=== PATIENT | male | born 1965 | race American Indian/Alaskan Native ===

== ENCOUNTER 2017-05-25 20:35 | Emergency (ER) | payer MEDICAID ==
[2017-05-25] MEDS ORDERED: PERCOCET 5/325 PO ONE (22:31)
[2017-05-25] MEDS ORDERED: BOOSTRIX IM ONE (22:31)
--- NOTE | 2017-05-25 22:31 | Emergency Department Report ---
- General Chief complaint: Skin/Abscess/Foreign Body Stated complaint: BOIL ON NECK X 1 WEEK Time Seen by Provider: 05/25/17 21:56 Source: patient, family Mode of arrival: Ambulatory Limitations: No Limitations - History of Present Illness Initial comments: Patient here report that he has an abscess on the left side of his neck with the getting bigger over a week. He said it is very painful at 9 out of 10. He said he has been putting warm compresses on the site and taken [id number] pain medication but is not helping. Worse with palpation and movement better resting. Unsure of tetanus vaccination date. Patient has a history of asthma diabetes and hypertension. Ports pain as throbbing. Denies any known cause of abscess. The report that he saw his primary care doctor regarding in abscess on his neck and she placed him on Keflex and easily taken it for 3 days. He said his been taking Keflex 500 mg 3 times a day and is being taken it for the last 3 days. He said he did not see any results with antibiotic. Patient also reports that he use pain that he place in hot water and try to get the pus out but it did not work. Pressures elevated and patient reports that he is on medication for high blood pressure. Patient is asymptomatic. Similar incident in the past. MD complaint: abscess/boil Onset/Timin -: week(s) Tetanus Up to Date: unsure Location: neck Severity: severe Severity scale (0 -10): 7 Quality: other (throbbing) Consistency: constant Improves with: rest Worsens with: palpation, movement Context: other (unknown) Associated symptoms: denies other symptoms Treatments Prior to Arrival: attempted to drain pus at (with safety pin), antibiotic (keflex has been taking for 3 days. Prescribed by PCP) - Related Data Home Medications Medication Instructions Recorded Confirmed Last Taken Cetirizine HCl [ZyrTEC] 10 mg PO DAILY 05/04/17 05/04/17 Unknown Insulin Glargine,Hum.rec.anlog 48 unit SQ QHS 05/04/17 05/04/17 Unknown [Lantus] Liraglutide [Saxenda] 3 mg SQ QAM 05/04/17 05/04/17 Unknown Previous Rx's Medication Instructions Recorded Last Taken Type ALBUTEROL Inhaler [ProAir HFA 2 puff IH QID PRN #1 inhalation 12/26/16 Unknown Rx Inhaler] Gabapentin [Gralise] 300 mg PO TID #90 tab.er.24h 05/07/17 Unknown Rx Gemfibrozil [Lopid] 600 mg PO BID #30 tablet 05/07/17 Unknown Rx Insulin Detemir [Levemir] 48 units SUB-Q QHS #10 ml 05/07/17 Unknown Rx Losartan [Cozaar] 100 mg PO QDAY #30 tablet 05/07/17 Unknown Rx Metoprolol [Lopressor TAB] 50 mg PO BID #60 tablet 05/07/17 Unknown Rx Pravastatin [Pravachol] 20 mg PO QHS #30 tablet 05/07/17 Unknown Rx amLODIPine [Norvasc] 10 mg PO DAILY #30 tablet 05/07/17 Unknown Rx glipiZIDE [glipiZIDE XL] 10 mg PO QPM #30 tab.er.24 05/07/17 Unknown Rx hydrALAZINE [Apresoline TAB] 100 mg PO Q8HR #90 tablet 05/07/17 Unknown Rx oxyCODONE /ACETAMINOPHEN [Percocet 1 tab PO Q8HR PRN #20 tablet 05/07/17 Unknown Rx 5/325 mg] Acetaminophen/Codeine [Tylenol 1 tab PO Q6H PRN 5 Days #20 tab 05/25/17 Unknown Rx /Codeine # 3 tab] Sulfamethoxazole/Trimethoprim 1 each PO BID 10 Days #20 tablet 05/25/17 Unknown Rx [Bactrim DS TAB] Allergies Allergy/AdvReac Type Severity Reaction Status Date / Time No Known Allergies Allergy Verified 02/13/15 18:50 Abscess Boil HPI - HPI Chief Complaint: Skin/Abscess/Foreign Body Stated Complaint: BOIL ON NECK X 1 WEEK Time Seen by Provider: 05/25/17 21:56 Home Medications: Home Medications Medication Instructions Recorded Confirmed Last Taken Cetirizine HCl [ZyrTEC] 10 mg PO DAILY 05/04/17 05/04/17 Unknown Insulin Glargine,Hum.rec.anlog 48 unit SQ QHS 05/04/17 05/04/17 Unknown [Lantus] Liraglutide [Saxenda] 3 mg SQ QAM 05/04/17 05/04/17 Unknown Previous Rx's Medication Instructions Recorded Last Taken Type ALBUTEROL Inhaler [ProAir HFA 2 puff IH QID PRN #1 inhalation 12/26/16 Unknown Rx Inhaler] Gabapentin [Gralise] 300 mg PO TID #90 tab.er.24h 05/07/17 Unknown Rx Gemfibrozil [Lopid] 600 mg PO BID #30 tablet 05/07/17 Unknown Rx Insulin Detemir [Levemir] 48 units SUB-Q QHS #10 ml 05/07/17 Unknown Rx Losartan [Cozaar] 100 mg PO QDAY #30 tablet 05/07/17 Unknown Rx Metoprolol [Lopressor TAB] 50 mg PO BID #60 tablet 05/07/17 Unknown Rx Pravastatin [Pravachol] 20 mg PO QHS #30 tablet 05/07/17 Unknown Rx amLODIPine [Norvasc] 10 mg PO DAILY #30 tablet 05/07/17 Unknown Rx glipiZIDE [glipiZIDE XL] 10 mg PO QPM #30 tab.er.24 05/07/17 Unknown Rx hydrALAZINE [Apresoline TAB] 100 mg PO Q8HR #90 tablet 05/07/17 Unknown Rx oxyCODONE /ACETAMINOPHEN [Percocet 1 tab PO Q8HR PRN #20 tablet 05/07/17 Unknown Rx 5/325 mg] Acetaminophen/Codeine [Tylenol 1 tab PO Q6H PRN 5 Days #20 tab 05/25/17 Unknown Rx /Codeine # 3 tab] Sulfamethoxazole/Trimethoprim 1 each PO BID 10 Days #20 tablet 05/25/17 Unknown Rx [Bactrim DS TAB] Allergies/Adverse Reactions: Allergies Allergy/AdvReac Type Severity Reaction Status Date / Time No Known Allergies Allergy Verified 02/13/15 18:50 ED Review of Systems ROS: Stated complaint: BOIL ON NECK X 1 WEEK Other details as noted in HPI Comment: All other systems reviewed and negative Constitutional: no symptoms reported Respiratory: no symptoms reported Cardiovascular: denies: chest pain, palpitations, dyspnea on exertion, edema, syncope Gastrointestinal: denies: abdominal pain, nausea, vomiting, diarrhea, constipation Musculoskeletal: denies: back pain, joint swelling, arthralgia Skin: other (abscess left neck) Neurological: denies: headache ED Past Medical Hx - Past Medical History Previous Medical History?: Yes Hx Hypertension: Yes Hx Congestive Heart Failure: No Hx Diabetes: Yes Hx Asthma: No Hx COPD: No Hx HIV: No Additional medical history: possible sciatica bronchitis. Obesity - Surgical History Past Surgical History?: Yes Additional Surgical History: Salivary gland removed - Family History Family history: diabetes, hypertension - Social History Smoking Status: Never Smoker Substance Use Type: None - Medications Home Medications: Home Medications Medication Instructions Recorded Confirmed Last Taken Type ALBUTEROL Inhaler [ProAir HFA 2 puff IH QID PRN #1 inhalation 12/26/16 05/04/17 Unknown Rx Inhaler] Cetirizine HCl [ZyrTEC] 10 mg PO DAILY 05/04/17 05/04/17 Unknown History Insulin Glargine,Hum.rec.anlog 48 unit SQ QHS 05/04/17 05/04/17 Unknown History [Lantus] Liraglutide [Saxenda] 3 mg SQ QAM 05/04/17 05/04/17 Unknown History Gabapentin [Gralise] 300 mg PO TID #90 tab.er.24h 05/07/17 Unknown Rx Gemfibrozil [Lopid] 600 mg PO BID #30 tablet 05/07/17 Unknown Rx Insulin Detemir [Levemir] 48 units SUB-Q QHS #10 ml 05/07/17 Unknown Rx Losartan [Cozaar] 100 mg PO QDAY #30 tablet 05/07/17 Unknown Rx Metoprolol [Lopressor TAB] 50 mg PO BID #60 tablet 05/07/17 Unknown Rx Pravastatin [Pravachol] 20 mg PO QHS #30 tablet 05/07/17 Unknown Rx amLODIPine [Norvasc] 10 mg PO DAILY #30 tablet 05/07/17 Unknown Rx glipiZIDE [glipiZIDE XL] 10 mg PO QPM #30 tab.er.24 05/07/17 Unknown Rx hydrALAZINE [Apresoline TAB] 100 mg PO Q8HR #90 tablet 05/07/17 Unknown Rx oxyCODONE /ACETAMINOPHEN [Percocet 1 tab PO Q8HR PRN #20 tablet 05/07/17 Unknown Rx 5/325 mg] Acetaminophen/Codeine [Tylenol 1 tab PO Q6H PRN 5 Days #20 tab 05/25/17 Unknown Rx /Codeine # 3 tab] Sulfamethoxazole/Trimethoprim 1 each PO BID 10 Days #20 tablet 05/25/17 Unknown Rx [Bactrim DS TAB] ED Physical Exam - General Limitations: No Limitations General appearance: alert, in no apparent distress - Head Head exam: Present: atraumatic, normocephalic, normal inspection - Eye Eye exam: Present: normal appearance, PERRL, EOMI. Absent: periorbital swelling , periorbital tenderness Pupils: Present: normal accommodation - ENT ENT exam: Present: normal exam, normal orophraynx, mucous membranes moist - Neck Neck exam: Present: normal inspection, tenderness (tender to palpate the left lateral neck and abscess site), full ROM, other (no C-spine tenderness). Absent : meningismus, lymphadenopathy - Expanded Neck Exam Expanded Neck exam: Present: tenderness (tentative palpate), other (E C-spine tenderness) . Absent: midline deformity, anterior neck swelling, carotid bruit, tracheal deviation - Respiratory Respiratory exam: Present: normal lung sounds bilaterally. Absent: prolonged expiratory, other, chest wall tenderness, wheezes, rales, rhonchi, stridor, respiratory distress, accessory muscle use - Cardiovascular Cardiovascular Exam: Present: regular rate, normal rhythm, normal heart sounds. Absent: systolic murmur, diastolic murmur - GI/Abdominal GI/Abdominal exam: Present: soft, normal bowel sounds. Absent: distended, tenderness, guarding, rebound, rigid, organomegaly, mass, bruit, pulsatile mass - Extremities Exam Extremities exam: Present: normal inspection, full ROM, normal capillary refill , other (no clubbing, cyanosis or edema. +2+ distal extremities. No neurovascular compromise). Absent: tenderness, pedal edema, joint swelling, calf tenderness - Back Exam Back exam: Present: normal inspection, full ROM. Absent: tenderness, CVA tenderness (R), CVA tenderness (L), muscle spasm, paraspinal tenderness, vertebral tenderness, rash noted - Neurological Exam Neurological exam: Present: alert, oriented X3, normal gait, reflexes normal. Absent: motor sensory deficit - Expanded Neurological Exam Expanded Neurological exam: Absent: innattentive, memory loss-remote event, memory loss- recent event, ataxia, receptive aphasia, expressive aphasia, total aphasia, tremor, protecting the airway Patient oriented to: Present: person, place, time Speech: Present: fluid speech Cranial nerves: EOM's Intact: Normal, Gag Reflex: Normal, Tongue Deviation: Normal, Nystagmus: Normal, Facial Sensation: Normal Cerebellar function: Romberg: Normal Upper motor neuron: Sensory Extinction: Normal Sensory exam: Upper Extremity Light Touch: Normal, Upper Extremity Temperature: Normal, UE 2 Point Discrimination: Normal, Lower Extremity Light Touch: Normal, Lower Extremity Temperature: Normal, LE 2 Point Discrimination: Normal Motor strength exam: RUE: 5, LUE: 5, RLE: 5, LLE: 5 DTR: bicep (R): 2+, bicep (L): 2+, tricep (R): 2+, tricep (L): 2+, knee (R): 2+ , knee (L): 2+, ankle (R): 2+, ankle (L): 2+ Best Eye Response (Anel): (4) open spontaneously Best Motor Response (Anel): (6) obeys commands Best Verbal Response (Ashmore): (5) oriented Ashmore Total: 15 - Psychiatric Psychiatric exam: Present: normal affect, normal mood - Skin Skin exam: Present: warm, dry, intact, erythema, other (abscess) - Expanded Skin Exam Expanded Type of lesion: Present: abscess (left neck) Distribution of rash: neck Description of rash: Present: size (2 cm of induration and 4 cm erythema), tenderness, erythematous, swelling, fluctuant (very minimal fluctuant), indurated (mostly indurated). Absent: vesicular, blisters, bullous, petechial, purpuic, crusting, discharge ED Course Vital Signs 05/25/17 05/25/17 05/25/17 20:37 23:30 23:44 Temperature 98.1 F Pulse Rate 90 81 Respiratory 18 Rate Blood Pressure 195/105 199/104 Blood Pressure 199/104 [Left] O2 Sat by Pulse 97 Oximetry - Reevaluation(s) Reevaluation #1: 05/25/17 22:39 Patient is stable at present. He was given a set 5/325 2 tablets emergency room. Boostrix 0.5 mL. Reevaluation #2: 05/25/17 23:21 Patient received clindamycin 600 mg IM for cellulitis and abscess. Incision and drainage done. Please see procedure note for details Reevaluation #3: 05/25/17 23:31 Patient blood pressure is 199/104 after incision and drainage. Patient does have a primary care doctor and he is asymptomatic at present. I discussed with him that he needs to keep a log of his blood pressure and take to his primary care doctor. I told him to call on Monday to schedule an appointment. He said he took his blood pressure medication prior to coming to the hospital. Reevaluation #4: 05/26/17 00:44 Patient was given clonidine 0.2 mg for elevated blood pressure and his blood pressure pulse clonidine is 179/105. I discussed this case with Dr. Sophie South and he is okay with patient going home to follow-up with his primary care physician patient is asymptomatic and has no neurological deficit. - I & D Left Lateral Neck Type of Procedure: Complex Site: left lateral neck Blade Size: 11 I & D Procedure: betadine prep, sterile drapes applied, sterile dressing applied , gauze wick placed Progress: Procedure note. Patient with abscess to left lateral neck. 2 cm indurated area surrounded by 4 cm of erythema. Very minimal fluctuance and positive indurated. Tender to palpate. Small opening into the center from where patient attempted to drain abscess with safety pin at home. Incision and drainage of left neck abscess that under sterile procedure. Area cleansed with iodine followed by normal saline. #11 blade used to make a small incision to side and attempted to drain abscess with hemostat and tried to express but very minimal amount pus came from site. Packing placed to site, sterile dry dressing applied and patient told to return in 4 days for reevaluation. I also told him that if the area is getting bigger he needs to return to emergency room. Patient instructed not to remove pack in and to apply warm compresses to affected area 3-4 times a day. Patient given Boostrix 0.5 mL emergency room. ED Medical Decision Making - Medical Decision Making ED course: Patient with abscess and cellulitis to left neck area. He said his primary care physician placed him on Keflex and he's been taking this for 3 days. He said he has not seen any results so he attempted to drain abscess at home he is in safety pin which he said he sterilized in hot water. He reported a small amount of pus came from sites. He reports pain 7 out of 10. Patient received Percocet 5/325 2 tablets in the emergency room. He also received clindamycin 600 mg IM and booster 0.5 mL. He had no adverse reaction from medication. Patient blood pressure before discharge is 179/105 after given clonidine. Blood pressure while in the emergency room pre-clonidine was also elevated And it was elevated in triage area also. Patient said he takes blood pressure medication and he took his blood pressure medication before he came to the hospital. He does have a primary care physician and I discussed with him that he needs to keep a log of his blood pressure and called his primary care in Monday to schedule an appointment for follow-up visit for her to evaluate his blood pressure and possible make changes in her medication. He is asymptomatic with elevated blood pressure at present. Abscess incision and drainage procedure done. Please see procedure note for details. I discussed the patient that he needs to continue taking his Keflex and also to start Bactrim DS as prescribed. Patient given prescription for Bactrim DS and Tylenol No. 3. Patient has no neurological deficit, denies chest pain or shortness of breath. Denies any abdominal or back pain. Denies any visual difficulties. I collaborated with Dr. Tracey and he is in agreement that patient can be discharged home and follow up with his primary care physician for management of chronic hypertension. Discharge home with his family in stable condition. Critical care attestation.: If time is entered above; I have spent that time in minutes in the direct care of this critically ill patient, excluding procedure time. ED Disposition Clinical Impression: Abscess or cellulitis, neck, Encounter for incision and drainage procedure, Elevated blood pressure reading with diagnosis of hypertension, Obesity, Class III, BMI 40-49.9 (morbid obesity) Disposition: DC-01 TO HOME OR SELFCARE Is pt being admited?: No Does the pt Need Aspirin: No Condition: Stable Instructions: Cellulitis (ED), Abscess Incision and Drainage (ED), Weight Management (ED), Acute Wound Care (ED), Obesity (ED), Hypertension (ED) Additional Instructions: Please return to emergency room in 4 days to have packing removed from Neck apply warm compresses to rlt neck area 3-4 times a day . This will soften area. take Motrin as prescribed Take Bactrim DS as instructed and continue to take Keflex as prescribed by a primary care doctor He is call your primary care doctor and let her know that you have been seen in emergency room for abscess to left neck and you had procedure for incision and drainage. Please do not drive or operate heavy machinery while taking Tylenol No. 3 as this medication causes If area of cellulitis worsens, increase in pain and increase in swelling please return to the emergency room COL[place] Please keep pack in and place to area that was incision and drained until you are seen in 4 days. Followed discharge instruction on acute wound care Prescriptions: Acetaminophen/Codeine [Tylenol /Codeine # 3 tab] 1 tab PO Q6H PRN 5 Days #20 tab PRN Reason: Pain Sulfamethoxazole/Trimethoprim [Bactrim DS TAB] 1 each PO BID 10 Days #20 tablet Referrals: PRIMARY CARE, [Primary Care Provider] - 05/29/17 please return to, emergency room [Other] - 05/29/17 (For evaluation of wound and removal of packing) [facility] [Outside] - 05/30/17 Forms: Accompanied Note, Work/School Release Form(ED)
[2017-05-25] MEDS ORDERED: MARCAINE 0.5% INFILTRATI ONE ×2 (22:34→22:37)
[2017-05-25] MEDS ORDERED: CLEOCIN IM ONE (23:18)
[2017-05-25] MEDS ORDERED: CATAPRES PO ONE (23:37)
[2017-05-26 00:48] VITALS: BP 179/105
== END 2017-05-26 01:12 | disposition home or self-care (01) ==
LOC: ED 20:35
DX: L02.11 Cutaneous abscess of neck (principal); I10 Essential (primary) hypertension; E11.9 Type 2 diabetes mellitus without complications; E66.9 Obesity, unspecified; Z68.41 Body mass index [BMI] 40.0-44.9, adult; Z79.4 Long term (current) use of insulin
CPT/HCPCS: 90471; 90715; 96372

== ENCOUNTER 2017-05-29 07:19 | Emergency (ER) | payer MEDICAID ==
[2017-05-29 08:19] VITALS: BP 189/105
--- NOTE | 2017-05-29 10:47 | Emergency Department Report ---
HPI - General Chief Complaint: Laceration/Recheck/Suture Time Seen by Provider: 05/29/17 10:20 - HPI HPI: Patient is a 52-year-old male with a history of high blood pressure controlled with medication who presents to ED for wound check. Patient was seen here Monday of last week and had a incision and drainage procedure done here. Patient states he has no fever, chest pain, dizziness, headache or any other problems. Patient just states he is here to have these wound looked at and packing removal ED Past Medical Hx - Past Medical History Hx Hypertension: Yes Hx Congestive Heart Failure: No Hx Diabetes: Yes Hx Asthma: No Hx COPD: No Hx HIV: No Additional medical history: possible sciatica bronchitis. Obesity - Surgical History Additional Surgical History: Salivary gland removed - Social History Smoking Status: Never Smoker Substance Use Type: None - Medications Home Medications: Home Medications Medication Instructions Recorded Confirmed Last Taken Type ALBUTEROL Inhaler [ProAir HFA 2 puff IH QID PRN #1 inhalation 12/26/16 05/04/17 Unknown Rx Inhaler] Cetirizine HCl [ZyrTEC] 10 mg PO DAILY 05/04/17 05/04/17 Unknown History Insulin Glargine,Hum.rec.anlog 48 unit SQ QHS 05/04/17 05/04/17 Unknown History [Lantus] Liraglutide [Saxenda] 3 mg SQ QAM 05/04/17 05/04/17 Unknown History Gabapentin [Gralise] 300 mg PO TID #90 tab.er.24h 05/07/17 Unknown Rx Gemfibrozil [Lopid] 600 mg PO BID #30 tablet 05/07/17 Unknown Rx Insulin Detemir [Levemir] 48 units SUB-Q QHS #10 ml 05/07/17 Unknown Rx Losartan [Cozaar] 100 mg PO QDAY #30 tablet 05/07/17 Unknown Rx Metoprolol [Lopressor TAB] 50 mg PO BID #60 tablet 05/07/17 Unknown Rx Pravastatin [Pravachol] 20 mg PO QHS #30 tablet 05/07/17 Unknown Rx amLODIPine [Norvasc] 10 mg PO DAILY #30 tablet 05/07/17 Unknown Rx glipiZIDE [glipiZIDE XL] 10 mg PO QPM #30 tab.er.24 05/07/17 Unknown Rx hydrALAZINE [Apresoline TAB] 100 mg PO Q8HR #90 tablet 05/07/17 Unknown Rx oxyCODONE /ACETAMINOPHEN [Percocet 1 tab PO Q8HR PRN #20 tablet 05/07/17 Unknown Rx 5/325 mg] Acetaminophen/Codeine [Tylenol 1 tab PO Q6H PRN 5 Days #20 tab 05/25/17 Unknown Rx /Codeine # 3 tab] Sulfamethoxazole/Trimethoprim 1 each PO BID 10 Days #20 tablet 05/25/17 Unknown Rx [Bactrim DS TAB] ED Review of Systems ROS: Stated complaint: PACKING REMOVAL Other details as noted in HPI Constitutional: denies: chills, fever Eyes: denies: eye pain, eye discharge, vision change ENT: denies: ear pain, throat pain Respiratory: denies: cough, shortness of breath, wheezing Cardiovascular: denies: chest pain, palpitations Endocrine: no symptoms reported Gastrointestinal: denies: abdominal pain, nausea, diarrhea Genitourinary: denies: urgency, dysuria Musculoskeletal: denies: back pain, joint swelling, arthralgia Skin: denies: rash, lesions Neurological: denies: headache, weakness, paresthesias Psychiatric: denies: anxiety, depression Hematological/Lymphatic: denies: easy bleeding, easy bruising Physical Exam - Physical Exam Vital Signs: Vital Signs 05/29/17 08:14 Temperature 98.7 F Pulse Rate 64 Respiratory 16 Rate Blood Pressure 189/105 O2 Sat by Pulse 98 Oximetry Physical Exam: GENERAL: Alert and oriented x3, no apparent distress, Normal Gait, atraumatic. HEAD: Head is normocephalic and a-traumatic. EYES: Extra ocular muscles are intact. Pupils are equal, round, and reactive to light and accommodation. NECK: Supple. Non edematous, No lymphadenopathy or thyromegaly. LUNGS: Symetrical with respiration, No wheezing, no rales or crackles, CTAB. HEART: S1, S2 present, regular rate and rhythm without murmur, no rubs, no gallops. Non tender to palpation SKIN: Warm and dry, packing removed, no drainage, non tender to palpation, No lesions, No ulceration or induration present. ED Course Vital Signs 05/29/17 08:14 Temperature 98.7 F Pulse Rate 64 Respiratory 16 Rate Blood Pressure 189/105 O2 Sat by Pulse 98 Oximetry ED Medical Decision Making - Medical Decision Making 52-year-old male presents with wound check and packing removal ED course: Packing removed with no complication Wound clean and dry, no drainage, Pt tolerated well Discussed with pt to f/u in 3-5 days for wound check. Vital signs normal. Critical care attestation.: If time is entered above; I have spent that time in minutes in the direct care of this critically ill patient, excluding procedure time. ED Disposition Clinical Impression: Wound check, abscess Disposition: - TO HOME OR SELFCARE Is pt being admited?: No Does the pt Need Aspirin: No Condition: Stable Instructions: Abscess Incision and Drainage (ED) Additional Instructions: Continue taking antibiotics as prescribed Follow-up to primary care doctor in 2-5 days. Change dressing daily Referrals: PRIMARY CARE, [Primary Care Provider] - 3-5 Days [facility] [Outside] - 3-5 Days [facility] [Outside] - 3-5 Days [facility] [Outside] - 3-5 Days Forms: Accompanied Note, Work/School Release Form(ED) Time of Disposition: 10:45
== END 2017-05-29 11:05 | disposition home or self-care (01) ==
LOC: ED 07:19
DX: Z48.00 Encounter for change or removal of nonsurgical wound dressing (principal); I10 Essential (primary) hypertension; E11.9 Type 2 diabetes mellitus without complications; Z79.4 Long term (current) use of insulin

== ENCOUNTER 2019-06-24 02:12 | Inpatient (IN) | payer MEDICAID ==
[2019-06-24] MEDS ORDERED: ASPIRIN 81 MG TAB CHEW PO ONE (02:47)
[2019-06-24] MEDS ORDERED: BENZONATATE 100 MG CAP PO ONE (02:47)
--- NOTE | 2019-06-24 03:24 | XRay Report ---
CHEST 1 VIEW INDICATION: tachycardia. COMPARISON: 05/04/2017 FINDINGS: SUPPORT DEVICES: None. HEART / MEDIASTINUM: No significant abnormality. LUNGS / PLEURA: Diffuse interstitial prominence is noted. No evidence of consolidation or atelectasis No pneumothorax. ADDITIONAL FINDINGS: IMPRESSION: 1. Persistent prominent interstitial markings without interval change Signer Name: Manuel Chandra MD Signed: 06/24/2019 3:19 AM Workstation Name: [id number]
--- NOTE | 2019-06-24 03:25 | Emergency Department Report ---
ED Chest Pain HPI - General Chief Complaint: Dyspnea/Respdistress Stated Complaint: CHEST PAIN Time Seen by Provider: 06/24/19 02:29 Source: patient Mode of arrival: Stretcher Limitations: No Limitations - History of Present Illness Initial Comments: Reports hx CHF, and CKD, and HTN MD Complaint: chest pain (with coughing) -: week(s) (2) Onset: during rest Pain Location: substernal Pain Radiation: none Severity: mild Quality: aching Consistency: intermittent Improves With: nothing Worsens With: other (coughing) Context: recent illness re: dyspnea. denies: nausea, vomting, diaphoresis, sense of impending doom, other Other Symptoms: cough (Reports blood tinged sputum), leg swelling. denies: fever, syncope, rash, acid taste in mouth, palpitations, burping - Related Data Home Medications Medication Instructions Recorded Confirmed Last Taken AtorvaSTATin 40 mg PO DAILY 06/24/19 06/24/19 Unknown Bumetanide 1 mg PO DAILY 06/24/19 06/24/19 Unknown Coreg 25 mg PO DAILY 06/24/19 06/24/19 Unknown Isosorbide Dinitrate 20 mg PO TID 06/24/19 06/24/19 Unknown Januvia 100 mg PO DAILY 06/24/19 06/24/19 Unknown Lasix TAB 40 mg PO DAILY 06/24/19 06/24/19 Unknown Terazosin (Nf) 5 mg PO HS 06/24/19 06/24/19 Unknown Previous Rx's Medication Instructions Recorded Last Taken Type ALBUTEROL Inhaler (OR & NICU) 2 puff IH QID PRN #1 inhalation 12/26/16 Unknown Rx [ProAir HFA Inhaler] amLODIPine 10 mg PO DAILY #30 tablet 05/07/17 Unknown Rx glipiZIDE [glipiZIDE XL] 10 mg PO QPM #30 tab.er.24 05/07/17 Unknown Rx hydrALAZINE [Apresoline TAB] 100 mg PO Q8HR #90 tablet 05/07/17 Unknown Rx Allergies Allergy/AdvReac Type Severity Reaction Status Date / Time No Known Allergies Allergy Verified 02/13/15 18:50 Heart Score - HEART Score History: Slightly suspicious EKG: Non-specific Age: 45-65 Risk factors: 1-2 risk factors Troponin: 1-3x normal limit HEART Score: 4 ED Review of Systems ROS: Stated complaint: CHEST PAIN Other details as noted in HPI Other: GENERAL: No weight change, fatigue, fever, chills, or night sweats SKIN: No changes in skin or hair, no itching, no rashes, no jaundice HEAD: No trauma EYES: No blurriness, tearing, itching, acute visual loss, conjunctival discoloration, or scleral icterus EARS: No hearing loss, tinnitus, vertigo, or earache NOSE: No rhinorrhea, stuffiness, sneezing, itching, or epistaxis MOUTH: No bleeding gums, hoarseness, sore throat, or swelling CARDIAC: Chest pain with coughing for 2 weeks. Dyspnea on exertion, edema. No new murmur, palpitations, orthopnea, PND RESPIRATORY: Cough with blood tinged sputum production. No wheeze, hemoptysis GI: No abdominal pain, nausea, vomiting, dysphagia, diarrhea, constipation, hematemesis, melena, hematochezia URINARY: No frequency, urgency, polyuria, dysuria, hematuria, or incontinence MUSCULOSKELETAL: No muscle weakness, joint stiffness, decrease in range of motion, redness, swelling NEUROLOGIC: No headache, syncope, loss of sensation, numbness, tingling, tremors, weakness, paralysis, seizures HEMATOLOGIC: No anemia, easy bruising, bleeding, petechiae, or purpura ENDOCRINE: No hot or cold intolerance, sweating, polyuria, polydipsia or, polyphagia no thyroid problems PSYCHIATRIC: No change in mood, no anxiety, no depression ED Past Medical Hx - Past Medical History Previous Medical History?: Yes Hx Hypertension: Yes Hx Congestive Heart Failure: No Hx Diabetes: Yes Hx Asthma: No Hx COPD: No Hx HIV: No Additional medical history: possible sciatica bronchitis. Obesity - Surgical History Past Surgical History?: Yes Additional Surgical History: Salivary gland removed - Social History Smoking Status: Never Smoker Substance Use Type: None - Medications Home Medications: Home Medications Medication Instructions Recorded Confirmed Last Taken Type ALBUTEROL Inhaler (OR & NICU) 2 puff IH QID PRN #1 inhalation 12/26/16 06/24/19 Unknown Rx [ProAir HFA Inhaler] amLODIPine 10 mg PO DAILY #30 tablet 05/07/17 06/24/19 Unknown Rx glipiZIDE [glipiZIDE XL] 10 mg PO QPM #30 tab.er.24 11/05/17 12/23/19 Unknown Rx hydrALAZINE [Apresoline TAB] 100 mg PO Q8HR #90 tablet 05/07/17 06/24/19 Unknown Rx AtorvaSTATin 40 mg PO DAILY 06/24/19 06/24/19 Unknown History Bumetanide 1 mg PO DAILY 06/24/19 06/24/19 Unknown History Coreg 25 mg PO DAILY 06/24/19 06/24/19 Unknown History Isosorbide Dinitrate 20 mg PO TID 06/24/19 06/24/19 Unknown History Januvia 100 mg PO DAILY 06/24/19 06/24/19 Unknown History Lasix TAB 40 mg PO DAILY 06/24/19 06/24/19 Unknown History Terazosin (Nf) 5 mg PO HS 06/24/19 06/24/19 Unknown History ED Physical Exam - General Limitations: No Limitations - Other Other exam information: GENERAL: Patient in no acute distress HEAD: Normocephalic, atraumatic EYES: PERRLA, EOM intact, no scleral icterus, no conjunctival hemorrhage, visual quiroz and acuity wnl NOSE: No tenderness, discharge, sinus tenderness MOUTH: No erythema, bleeding, exudate HEART: Regular rate and rhythm, no murmur, S1-S2 are auscultated, no edema, pulses are symmetric LUNGS: Mild bibasilar rales. No respiratory distress. Bilateral breath sounds, mild tachypnea, No retractions, No wheezing, rhonchi ABDOMEN: Normal bowel sounds, abdomen soft, no tenderness, no rebound, no guarding, no distention, no masses, no CVA tenderness MUSCULOSKELETAL: Normal joint range of motion, no redness, no swelling, no tenderness NEUROLOGIC: GCS 15, Alert and Oriented x3, Cranial nerves intact, normal sensation, normal strength, no cerebellar deficit, NIHSS 0 SKIN: Skin is warm and dry, no wounds, no rashes ED Course Vital Signs 06/24/19 06/24/19 02:37 03:49 Temperature 98 F Pulse Rate 84 78 Respiratory 16 16 Rate Blood Pressure 152/78 Blood Pressure 145/82 [Left] O2 Sat by Pulse 95 96 Oximetry BG score - Bg Score Age > 65: (0) No Aspirin use within the Past 7 Days: (0) No 3 or more CAD Risk Factors: (1) Yes 2 or more Angina events in past 24 hrs: (1) Yes Known CAD with more than 50% Stenosis: (0) No Elevated Cardiac Markers: (0) No ST Deviation Greater than 0.5mm: (0) No BG Score: 2 ED Medical Decision Making - Lab Data Result diagrams: 06/24/19 02:25 06/24/19 02:25 Laboratory Results - last 24 hr 06/24/19 06/24/19 06/24/19 02:25 02:25 02:25 WBC 8.7 RBC 3.66 Hgb 9.9 L Hct 29.6 L MCV 81 L MCH 27 L MCHC 33 RDW 17.6 H Plt Count 302 Lymph % (Auto) 9.9 L [place] % (Auto) 8.5 H Eos % (Auto) 2.9 Baso % (Auto) 0.6 Lymph # 0.9 L [place] # 0.7 Eos # 0.3 Baso # 0.0 Seg Neutrophils % 78.1 H Seg Neutrophils # 6.8 PT 13.5 INR 1.02 APTT 34.7 POC ABG pH POC ABG pCO2 POC ABG pO2 POC ABG HCO3 POC ABG Total CO2 POC ABG O2 Sat POC ABG Base Excess FiO2 Sodium Potassium Chloride Carbon Dioxide Anion Gap BUN Creatinine Estimated GFR BUN/Creatinine Ratio Glucose Lactic Acid 0.90 Calcium Magnesium Troponin T NT-Pro-B Natriuret Pep Triglycerides Cholesterol LDL Cholesterol Direct HDL Cholesterol Cholesterol/HDL Ratio 06/24/19 06/24/19 06/24/19 02:25 02:25 04:33 WBC RBC Hgb Hct MCV MCH MCHC RDW Plt Count Lymph % (Auto) [place] % (Auto) Eos % (Auto) Baso % (Auto) Lymph # [place] # Eos # Baso # Seg Neutrophils % Seg Neutrophils # PT INR APTT POC ABG pH 7.456 H POC ABG pCO2 36.5 POC ABG pO2 81 POC ABG HCO3 25.8 POC ABG Total CO2 27 POC ABG O2 Sat 96 POC ABG Base Excess 2 FiO2 36 Sodium 139 Potassium 4.1 Chloride 102.0 Carbon Dioxide 24 Anion Gap 17 BUN 26 H Creatinine 2.5 H Estimated GFR 33 BUN/Creatinine Ratio 10 Glucose 167 H Lactic Acid Calcium 8.5 Magnesium 2.30 Troponin T 0.051 H NT-Pro-B Natriuret Pep 1860 H Triglycerides 194 H Cholesterol 165 LDL Cholesterol Direct 95 HDL Cholesterol 29 L Cholesterol/HDL Ratio 5.68 - EKG Data When compared to previous EKG there are: no significant change - Radiology Data Radiology results: report reviewed - Medical Decision Making Patient comfortable. Updated with results. Plan admit for further evaluation. Hospitalist updated and accepts admission. Critical care attestation.: If time is entered above; I have spent that time in minutes in the direct care of this critically ill patient, excluding procedure time. ED Disposition Clinical Impression: Elevated troponin CHF exacerbation Qualifiers: Heart failure type: unspecified Qualified Code(s): I50.9 - Heart failure, unspecified Disposition: OP ADMIT IP TO THIS HOSP Is pt being admited?: Yes Condition: Stable Referrals: ANNA FLORES MD [Primary Care Provider] - 3-5 Days
[2019-06-24 03:27] LABS: Basophils % (Auto) 0.6 % (0.0-1.8); Eosinophils # (Auto) 0.3 K/mm3 (0.0-0.4); Eosinophils % (Auto) 2.9 % (0.0-4.3); Hematocrit 29.6 % (35.5-45.6); Hemoglobin 9.9 gm/dl (11.8-15.2); Lymphocytes # (Auto) 0.9 K/mm3 (1.2-5.4); Lymphocytes % (Auto) 9.9 % (13.4-35.0); Mean Corpuscular HGB Conc 33 % (32-34); Mean Corpuscular Volume 81 fl (84-94); Monocytes # (Auto) 0.7 K/mm3 (0.0-0.8); Monocytes % (Auto) 8.5 % (0.0-7.3); Platelet Count 302 K/mm3 (140-440); Red Blood Count 3.66 M/mm3 (3.65-5.03); Red Cell Distribution Width 17.6 % (13.2-15.2)
[2019-06-24 03:36] LABS: INR 1.02 (0.87-1.13)
[2019-06-24 03:37] LABS: Partial Thromboplastin Time 34.7 Sec. (24.2-36.6)
[2019-06-24 03:55] LABS: Calcium 8.5 mg/dL (8.4-10.2)
[2019-06-24 04:14] LABS: Chol/HDL Ratio 5.68 %
[2019-06-24] MEDS ORDERED: FUROSEMIDE 40 MG/4 ML INJ IV ONE (04:32)
[2019-06-24] MEDS ORDERED: ONDANSETRON 4 MG/2 ML INJ IV PRN (05:22)
[2019-06-24] MEDS ORDERED: DEXTROSE 50% IN WATER (25GM) 50 ML SYRINGE IV PRN (05:27)
[2019-06-24] MEDS ORDERED: NITROGLYCERIN 0.4 MG TAB SUBL SL PRN (05:27)
[2019-06-24] MEDS ORDERED: ALBUTEROL 2.5 MG/3 ML NEBU IH PRN (05:27)
--- NOTE | 2019-06-24 05:51 | History and Physical Report ---
<FABI MERIDA - Last Filed: 06/24/19 06:04> History of Present Illness Date of examination: 06/24/19 Date of admission: 06/24/2019 Chief complaint: DONIS History of present illness: 53-year-old -[place] male with history of CHF, CKD, hypertension, chronic respiratory failure with home O2 and diabetes who presents to [facility] with complaints of chest discomfort with nonproductive cough and difficulty in breathing. Patient states that he has been experiencing frequent cough, and progressively worsening shortness of breath for the last 3 weeks. He has tried nebulizer treatment and increasing use of home oxygen with no relief. Approximately 3 weeks ago he went to [facility] with complaints of cough. He was given a prescription for cough syrup with codeine. His cough still persists and his shortness of breath continue to worsened. He admits to chest discomfort with cough and intermittent hemoptysis. Patient also states that he noticed worsening bilateral lower extremity edema for the past week. He admits to being compliant with meds. Past History Past Medical History: heart failure, hypertension, renal failure Past Surgical History: Other (Salivary gland removed) Social history: , lives with family Family history: no significant family history Medications and Allergies Allergies Allergy/AdvReac Type Severity Reaction Status Date / Time No Known Allergies Allergy Verified 02/13/15 18:50 Home Medications Medication Instructions Recorded Confirmed Last Taken Type ALBUTEROL Inhaler (OR & NICU) 2 puff IH QID PRN #1 inhalation 12/26/16 06/24/19 Unknown Rx [ProAir HFA Inhaler] amLODIPine 10 mg PO DAILY #30 tablet 05/07/17 06/24/19 Unknown Rx glipiZIDE [glipiZIDE XL] 10 mg PO QPM #30 tab.er.24 05/07/17 06/24/19 Unknown Rx hydrALAZINE [Apresoline TAB] 100 mg PO Q8HR #90 tablet 05/07/17 06/24/19 Unknown Rx AtorvaSTATin 40 mg PO DAILY 06/24/19 06/24/19 Unknown History Bumetanide 1 mg PO DAILY 06/24/19 06/24/19 Unknown History Coreg 25 mg PO DAILY 06/24/19 06/24/19 Unknown History Isosorbide Dinitrate 20 mg PO TID 06/24/19 06/24/19 Unknown History Januvia 100 mg PO DAILY 06/24/19 06/24/19 Unknown History Lasix TAB 40 mg PO DAILY 06/24/19 06/24/19 Unknown History Terazosin (Nf) 5 mg PO HS 06/24/19 06/24/19 Unknown History Active Meds: Active Medications Acetaminophen (Tylenol) 650 mg PO Q4H PRN PRN Reason: Pain MILD(1-3)/Fever >100.5/STERN Albuterol (Proventil) 2.5 mg IH Q3HRT PRN PRN Reason: Shortness Of Breath Amlodipine Besylate (Amlodipine) 10 mg PO DAILY [facility] Atorvastatin Calcium (Lipitor) 40 mg PO DAILY [facility] Benzonatate (Tessalon Perles) 100 mg PO Q8HR [facility] Stop: 06/27/19 05:59 Carvedilol (Coreg) 25 mg PO DAILY [facility] Dextrose (D50w (25gm) Syringe) 50 ml IV Q30MIN PRN; Protocol PRN Reason: Hypoglycemia Docusate Sodium (Colace) 100 mg PO BID [facility] Furosemide (Lasix) 40 mg IV BID@0600,1800 [facility] Glipizide (Glucotrol Xl) 10 mg PO QPMDIAB [facility] Heparin Sodium (Porcine) (Heparin) 5,000 unit SUB-Q Q12HR [facility] Hydralazine HCl (Apresoline) 100 mg PO Q8HR [facility] Insulin Human Lispro (Humalog) 0 unit SUB-Q ACHS [facility]; Protocol Isosorbide Dinitrate (Isordil Titradose) 20 mg PO TID [facility] Nitroglycerin (Nitrostat) 0.4 mg SL .Q5MIN PRN PRN Reason: Chest Pain Ondansetron HCl (Zofran) 4 mg IV Q8H PRN PRN Reason: Nausea And Vomiting Sodium Chloride (Sodium Chloride Flush Syringe 10 Ml) 10 ml IV BID [facility] Sodium Chloride (Sodium Chloride Flush Syringe 10 Ml) 10 ml IV PRN PRN PRN Reason: LINE FLUSH Review of Systems All systems: negative Cardiovascular: edema, shortness of breath, dyspnea on exertion Respiratory: cough, shortness of breath, dyspnea on exertion, other (Hemoptysis, chest discomfort with cough) Exam - Physical Exam Narrative exam: Physical exam General appearance: Present: moderate discomfort, alert and oriented 3, pleasant, well developed, adult male - EENT Eyes: Present: PERRL, EOM intact ENT: hearing intact, normal dentition - Neck Neck: Present: supple, normal ROM - Respiratory Respiratory effort: Non-labored, on supplemental oxygen, unprovoked cough elicited during exam Respiratory: crackles - Cardiovascular Heart rate: 80 (bpm) Rhythm: Sinus rhythm Heart Sounds: Present: S1 & S2. Absent: rub, click - Extremities Extremities: no ischemia, pulses intact, lateral lower extremity pitting edema - Peripheral Assessment Peripheral Pulses: within normal limits - Abdominal General gastrointestinal: soft, non-tender, normal bowel sounds - Integumentary Integumentary: Present: warm, dry - Musculoskeletal Musculoskeletal: Able to move all extremities -Neurological Neurological: CN II-XII intact - Psychiatric Psychiatric: Appropriate for situation ,cooperative - Constitutional Vitals: Temp Pulse Resp BP Pulse Ox 98 F 78 16 145/82 96 06/24/19 02:37 06/24/19 03:49 06/24/19 03:49 06/24/19 03:49 06/24/19 03:49 Results - Labs CBC & Chem 7: 06/24/19 02:25 06/24/19 02:25 Labs: Laboratory Last Values WBC 8.7 K/mm3 (4.5-11.0) 06/24/19 02:25 RBC 3.66 M/mm3 (3.65-5.03) 06/24/19 02:25 Hgb 9.9 gm/dl (11.8-15.2) L 06/24/19 02:25 Hct 29.6 % (35.5-45.6) L 06/24/19 02:25 MCV 81 fl (84-94) L 06/24/19 02:25 MCH 27 pg (28-32) L 06/24/19 02:25 MCHC 33 % (32-34) 06/24/19 02:25 RDW 17.6 % (13.2-15.2) H 06/24/19 02:25 Plt Count 302 K/mm3 (140-440) 06/24/19 02:25 Lymph % (Auto) 9.9 % (13.4-35.0) L 06/24/19 02:25 [place] % (Auto) 8.5 % (0.0-7.3) H 06/24/19 02:25 Eos % (Auto) 2.9 % (0.0-4.3) 06/24/19 02:25 Baso % (Auto) 0.6 % (0.0-1.8) 06/24/19 02:25 Lymph # 0.9 K/mm3 (1.2-5.4) L 06/24/19 02:25 [place] # 0.7 K/mm3 (0.0-0.8) 06/24/19 02:25 Eos # 0.3 K/mm3 (0.0-0.4) 06/24/19 02:25 Baso # 0.0 K/mm3 (0.0-0.1) 06/24/19 02:25 Seg Neutrophils % 78.1 % (40.0-70.0) H 06/24/19 02:25 Seg Neutrophils # 6.8 K/mm3 (1.8-7.7) 06/24/19 02:25 PT 13.5 Sec. (12.2-14.9) 06/24/19 02:25 INR 1.02 (0.87-1.13) 06/24/19 02:25 APTT 34.7 Sec. (24.2-36.6) 06/24/19 02:25 POC ABG pH 7.456 (7.35-7.45) H 06/24/19 04:33 POC ABG pCO2 36.5 (35-45) 06/24/19 04:33 POC ABG pO2 81 (80-105) 06/24/19 04:33 POC ABG HCO3 25.8 (22-26 mml/L) 06/24/19 04:33 POC ABG Total CO2 27 (23-27mmol/L) 06/24/19 04:33 POC ABG O2 Sat 96 06/24/19 04:33 POC ABG Base Excess 2 ((-2) - (+3)mmol/L) 06/24/19 04:33 FiO2 36 % 06/24/19 04:33 Sodium 139 mmol/L (137-145) 06/24/19 02:25 Potassium 4.1 mmol/L (3.6-5.0) 06/24/19 02:25 Chloride 102.0 mmol/L (98-107) 06/24/19 02:25 Carbon Dioxide 24 mmol/L (22-30) 06/24/19 02:25 Anion Gap 17 mmol/L 06/24/19 02:25 BUN 26 mg/dL (9-20) H 06/24/19 02:25 Creatinine 2.5 mg/dL (0.8-1.5) H 06/24/19 02:25 Estimated GFR 33 ml/min 06/24/19 02:25 BUN/Creatinine Ratio 10 % 06/24/19 02:25 Glucose 167 mg/dL (75-100) H 06/24/19 02:25 Lactic Acid 0.90 mmol/L (0.7-2.0) 06/24/19 02:25 Calcium 8.5 mg/dL (8.4-10.2) 06/24/19 02:25 Magnesium 2.30 mg/dL (1.7-2.3) 06/24/19 02:25 Troponin T 0.051 ng/mL (0.00-0.029) H 06/24/19 02:25 NT-Pro-B Natriuret Pep 1860 pg/mL (0-900) H 06/24/19 02:25 Triglycerides 194 mg/dL (2-149) H 06/24/19 02:25 Cholesterol 165 mg/dL (50-199) 06/24/19 02:25 LDL Cholesterol Direct 95 mg/dL (50-130) 06/24/19 02:25 HDL Cholesterol 29 mg/dL (40-59) L 06/24/19 02:25 Cholesterol/HDL Ratio 5.68 % 06/24/19 02:25 - Imaging and Cardiology Imaging and Cardiology: CXR: Impression: 1. Persistent prominent interstitial markings without interval change Assessment and Plan Assessment and plan: 53-year-old -[place] male with history of CHF, CKD, hypertension, chronic respiratory failure with home O2 and diabetes who presents to [facility] with complaints of chest discomfort with nonproductive cough and difficulty in breathing. Patient states that he has been experiencing frequent cough, and progressively worsening shortness of breath for the last 3 weeks. He has tried nebulizer treatment and increasing use of home oxygen with no relief. Approximately 3 weeks ago he went to [facility] with complaints of cough. He was given a prescription for cough syrup with codeine. His cough still persists and his shortness of breath continue to worsened. He admits to chest discomfort with cough and intermittent hemoptysis. Patient also states that he noticed worsening bilateral lower extremity edema for the past week. He admits to being compliant with meds. Acute Exacerbation CHF -BNP elevated at 1860 -Troponin elevated 0.051, audrey continue to trend cardiac enzymes -CXR unrevealing -Start IV Lasix BID -On ASA, Statin, MARIA GUADALUPE, and BB -Cardiology consulted Acute on chronic hypoxic respiratory failure -Baseline home oxygen requirements of 3L prn -Currently on 4LNC -ABG 7.45/36.5/81/25.8 -Monitor saturations -Continue supplemental oxygen wean as tolerated DM -POC BG monitoring -Continue glipizide -SSI coverage prn -HgbA1C pending HTN -Monitor BP -Resume home hypertensive meds Acute Kidney Injury -Superimposed CKD -Cr on admission 2.5 -Avoid nephrotoxic agents -Renal dose all meds Anemia -Hemoglobin on admission 9.9 -No s/s of active bleeding -Continue to monitor hemoglobin -Transfuse as needed Obesity -BMI 42.6kg -Diet and lifestyle modifications -May benefit from OP weight mgmt program DVT PPX -on Heparin and SCD's Advance Directives: No VTE prophylaxis?: Chemical Plan of care discussed with patient/family: Yes <DIMAS GUTHRIE - Last Filed: 06/24/19 06:44> History of Present Illness Date of admission: 06/24/19 04:47 Medications and Allergies Active Meds: Active Medications Acetaminophen (Tylenol) 650 mg PO Q4H PRN PRN Reason: Pain MILD(1-3)/Fever >100.5/STERN Albuterol (Proventil) 2.5 mg IH Q3HRT PRN PRN Reason: Shortness Of Breath Amlodipine Besylate (Amlodipine) 10 mg PO DAILY [facility] Atorvastatin Calcium (Lipitor) 40 mg PO DAILY [facility] Benzonatate (Tessalon Perles) 100 mg PO Q8HR [facility] Stop: 06/27/19 05:59 Last Admin: 06/24/19 06:03 Dose: Not Given Documented by: Carvedilol (Coreg) 25 mg PO DAILY [facility] Dextrose (D50w (25gm) Syringe) 50 ml IV Q30MIN PRN; Protocol PRN Reason: Hypoglycemia Docusate Sodium (Colace) 100 mg PO BID [facility] Furosemide (Lasix) 40 mg IV BID@0600,1800 [facility] Last Admin: 06/24/19 06:03 Dose: Not Given Documented by: Glipizide (Glucotrol Xl) 10 mg PO QPMDIAB [facility] Heparin Sodium (Porcine) (Heparin) 5,000 unit SUB-Q Q12HR [facility] Hydralazine HCl (Apresoline) 100 mg PO Q8HR [facility] Last Admin: 06/24/19 06:07 Dose: 100 mg Documented by: Insulin Human Lispro (Humalog) 0 unit SUB-Q ACHS [facility]; Protocol Isosorbide Dinitrate (Isordil Titradose) 20 mg PO TID [facility] Nitroglycerin (Nitrostat) 0.4 mg SL .Q5MIN PRN PRN Reason: Chest Pain Ondansetron HCl (Zofran) 4 mg IV Q8H PRN PRN Reason: Nausea And Vomiting Sodium Chloride (Sodium Chloride Flush Syringe 10 Ml) 10 ml IV BID [facility] Sodium Chloride (Sodium Chloride Flush Syringe 10 Ml) 10 ml IV PRN PRN PRN Reason: LINE FLUSH Exam - Constitutional Vitals: Temp Pulse Resp BP Pulse Ox 98 F 87 16 151/78 96 06/24/19 02:37 06/24/19 06:08 06/24/19 06:08 06/24/19 06:08 06/24/19 06:08 Results - Labs CBC & Chem 7: 06/24/19 02:25 06/24/19 02:25 Labs: Laboratory Last Values WBC 8.7 K/mm3 (4.5-11.0) 06/24/19 02:25 RBC 3.66 M/mm3 (3.65-5.03) 06/24/19 02:25 Hgb 9.9 gm/dl (11.8-15.2) L 06/24/19 02:25 Hct 29.6 % (35.5-45.6) L 06/24/19 02:25 MCV 81 fl (84-94) L 06/24/19 02:25 MCH 27 pg (28-32) L 06/24/19 02:25 MCHC 33 % (32-34) 06/24/19 02:25 RDW 17.6 % (13.2-15.2) H 06/24/19 02:25 Plt Count 302 K/mm3 (140-440) 06/24/19 02:25 Lymph % (Auto) 9.9 % (13.4-35.0) L 06/24/19 02:25 [place] % (Auto) 8.5 % (0.0-7.3) H 06/24/19 02:25 Eos % (Auto) 2.9 % (0.0-4.3) 06/24/19 02:25 Baso % (Auto) 0.6 % (0.0-1.8) 06/24/19 02:25 Lymph # 0.9 K/mm3 (1.2-5.4) L 06/24/19 02:25 [place] # 0.7 K/mm3 (0.0-0.8) 06/24/19 02:25 Eos # 0.3 K/mm3 (0.0-0.4) 06/24/19 02:25 Baso # 0.0 K/mm3 (0.0-0.1) 06/24/19 02:25 Seg Neutrophils % 78.1 % (40.0-70.0) H 06/24/19 02:25 Seg Neutrophils # 6.8 K/mm3 (1.8-7.7) 06/24/19 02:25 PT 13.5 Sec. (12.2-14.9) 06/24/19 02:25 INR 1.02 (0.87-1.13) 06/24/19 02:25 APTT 34.7 Sec. (24.2-36.6) 06/24/19 02:25 POC ABG pH 7.456 (7.35-7.45) H 06/24/19 04:33 POC ABG pCO2 36.5 (35-45) 06/24/19 04:33 POC ABG pO2 81 (80-105) 06/24/19 04:33 POC ABG HCO3 25.8 (22-26 mml/L) 06/24/19 04:33 POC ABG Total CO2 27 (23-27mmol/L) 06/24/19 04:33 POC ABG O2 Sat 96 06/24/19 04:33 POC ABG Base Excess 2 ((-2) - (+3)mmol/L) 06/24/19 04:33 FiO2 36 % 06/24/19 04:33 Sodium 139 mmol/L (137-145) 06/24/19 02:25 Potassium 4.1 mmol/L (3.6-5.0) 06/24/19 02:25 Chloride 102.0 mmol/L (98-107) 06/24/19 02:25 Carbon Dioxide 24 mmol/L (22-30) 06/24/19 02:25 Anion Gap 17 mmol/L 06/24/19 02:25 BUN 26 mg/dL (9-20) H 06/24/19 02:25 Creatinine 2.5 mg/dL (0.8-1.5) H 06/24/19 02:25 Estimated GFR 33 ml/min 06/24/19 02:25 BUN/Creatinine Ratio 10 % 06/24/19 02:25 Glucose 167 mg/dL (75-100) H 06/24/19 02:25 Hemoglobin A1c 8.6 % (4-6) H 06/24/19 02:25 Lactic Acid 0.90 mmol/L (0.7-2.0) 06/24/19 02:25 Calcium 8.5 mg/dL (8.4-10.2) 06/24/19 02:25 Magnesium 2.30 mg/dL (1.7-2.3) 06/24/19 02:25 Troponin T 0.051 ng/mL (0.00-0.029) H 06/24/19 02:25 NT-Pro-B Natriuret Pep 1860 pg/mL (0-900) H 06/24/19 02:25 Triglycerides 194 mg/dL (2-149) H 06/24/19 02:25 Cholesterol 165 mg/dL (50-199) 06/24/19 02:25 LDL Cholesterol Direct 95 mg/dL (50-130) 06/24/19 02:25 HDL Cholesterol 29 mg/dL (40-59) L 06/24/19 02:25 Cholesterol/HDL Ratio 5.68 % 06/24/19 02:25 Assessment and Plan Assessment and plan: 74-year-old man with a history of hypertension, diabetes, CHF comes emergency room complaining of shortness of breath, cough x3 weeks. He has family members that is been sick with the flu. He was seen at [facility] and was given cough medicine and pain medications. His symptoms did not improve also complaining of orthopnea. Agree with plan as stated above, in addition obtain CT chest, rule out underlying pneumonia, start empiric antibiotic
[2019-06-24] MEDS: FUROSEMIDE 40 MG/4 ML INJ IV SCH ×2 (06:03→18:03)
[2019-06-24] MEDS: BENZONATATE 100 MG CAP PO SCH ×3 (06:03→21:53)
[2019-06-24] MEDS ORDERED: hydrALAZINE 100 MG TAB ONE (06:07)
[2019-06-24] MEDS: hydrALAZINE 100 MG TAB PO SCH ×3 (06:07→21:53)
[2019-06-24] MEDS ORDERED: NON-FORMULARY EACH (Isosorbide Dinitrate 20 MG) PO SCH (08:00)
[2019-06-24] MEDS ORDERED: NON-FORMULARY EACH (Atorvastatin 40 MG) PO SCH (10:00)
[2019-06-24] MEDS ORDERED: NON-FORMULARY EACH (Coreg 25 MG) PO SCH (10:00)
[2019-06-24] MEDS: amLODIPine 10 MG TAB PO SCH (10:09)
[2019-06-24] MEDS: HEPARIN 5,000 UNIT/1 ML VIAL SUB-Q SCH ×2 (10:09→21:52)
[2019-06-24] MEDS: ISOSORBIDE DINITRATE 20 MG TAB PO SCH ×3 (10:09→21:53)
[2019-06-24] MEDS: carvediloL 25 MG TAB PO SCH (10:09)
[2019-06-24] MEDS: DOCUSATE SODIUM 100 MG CAP PO SCH ×2 (10:09→21:52)
[2019-06-24] MEDS: INSULIN LISPRO 100 UNIT/ML SUB-Q SCH ×4 (10:14→23:08)
[2019-06-24] MEDS ORDERED: FLU VACC QUAD 2019-20 (3 YR UP)/PF 60 MCG/0.5 ML SYRINGE IM ONE (12:00)
--- NOTE | 2019-06-24 12:08 | Consultation ---
History of Present Illness Consult date: 06/24/19 Requesting physician: FABI MERIDA Consult reason: chest pain, elevated troponin History of present illness: Mr. Carter is a 54 y/o male with a medical history significant for chronic HFpEF, CKD, diabetes hypertension and chronic respiratory failure on home oxygen who presented to [facility] with worsening chest pain and shortness of breath. He endorses a strong, nonproductive cough for the past three weeks that woke him from sleep and prevented him from lying flat. He was recently treated at [facility] for the flu; however, medical therapy has thus far been ineffective. The chest pain occurs mostly with coughing and is reproducible on palpation. He also reports some BLE edema. Troponins mildly elevated. He is unknown to our practice and sees a packing machine operator with [facility]. An echocardiogram at [facility] on 05/23/2019 found an EF of 58 percent with severely dialted LA and RV and severe LVH. A stress test in 2016 was negative. Cardiac catheterization in 2014 showed normal coronaries. Past History Past Medical History: heart failure, hypertension, renal failure Past Surgical History: Other (Salivary gland removed) Social history: , lives with family Family history: no significant family history Medications and Allergies Allergies Allergy/AdvReac Type Severity Reaction Status Date / Time No Known Allergies Allergy Verified 02/13/15 18:50 Home Medications Medication Instructions Recorded Confirmed Last Taken Type ALBUTEROL Inhaler (OR & NICU) 2 puff IH QID PRN #1 inhalation 12/26/16 06/24/19 Unknown Rx [ProAir HFA Inhaler] amLODIPine 10 mg PO DAILY #30 tablet 05/07/17 06/24/19 Unknown Rx glipiZIDE [glipiZIDE XL] 10 mg PO QPM #30 tab.er.24 05/07/17 06/24/19 Unknown Rx hydrALAZINE [Apresoline TAB] 100 mg PO Q8HR #90 tablet 05/07/17 06/24/19 Unknown Rx AtorvaSTATin 40 mg PO DAILY 06/24/19 06/24/19 Unknown History Bumetanide 1 mg PO DAILY 06/24/19 06/24/19 Unknown History Coreg 25 mg PO DAILY 06/24/19 06/24/19 Unknown History Isosorbide Dinitrate 20 mg PO TID 06/24/19 06/24/19 Unknown History Januvia 100 mg PO DAILY 06/24/19 06/24/19 Unknown History Lasix TAB 40 mg PO DAILY 06/24/19 06/24/19 Unknown History Terazosin (Nf) 5 mg PO HS 06/24/19 06/24/19 Unknown History Active Meds: Active Medications Acetaminophen (Tylenol) 650 mg PO Q4H PRN PRN Reason: Pain MILD(1-3)/Fever >100.5/STERN Albuterol (Proventil) 2.5 mg IH Q3HRT PRN PRN Reason: Shortness Of Breath Amlodipine Besylate (Amlodipine) 10 mg PO DAILY COUNT [facility]CLUDES [facility] Last Admin: 06/24/19 10:09 Dose: 10 mg Documented by: Atorvastatin Calcium (Lipitor) 40 mg PO DAILY COUNT INCLUDES [facility] Last Admin: 06/24/19 10:09 Dose: 40 mg Documented by: Benzonatate (Tessalon Perles) 100 mg PO Q8HR COUNT INCLUDES THE [facility] Stop: 06/27/19 05:59 Last Admin: 06/24/19 06:03 Dose: Not Given Documented by: Carvedilol (Coreg) 25 mg PO DAILY COUNT INCLUDES [facility] Last Admin: 06/24/19 10:09 Dose: 25 mg Documented by: Dextrose (D50w (25gm) Syringe) 50 ml IV Q30MIN PRN; Protocol PRN Reason: Hypoglycemia Docusate Sodium (Colace) 100 mg PO BID COUNT INCLUDES [facility] Last Admin: 06/24/19 10:09 Dose: 100 mg Documented by: Furosemide (Lasix) 40 mg IV BID@0600,1800 COUNT INCLUDES [facility] Last Admin: 06/24/19 06:03 Dose: Not Given Documented by: Glipizide (Glucotrol Xl) 10 mg PO QPMDIAB COUNT INCLUDES THE [facility] Heparin Sodium (Porcine) (Heparin) 5,000 unit SUB-Q Q12HR COUNT INCLUDES THE [facility] Last Admin: 06/24/19 10:09 Dose: 5,000 unit Documented by: Hydralazine HCl (Apresoline) 100 mg PO Q8HR COUNT INCLUDES [facility] Last Admin: 06/24/19 06:07 Dose: 100 mg Documented by: Levofloxacin/Dextrose (Levaquin 750mg/150ml) 750 mg in 150 mls @ 100 mls/hr IV Q48HR COUNT INCLUDES THE [facility]; Protocol Last Admin: 06/24/19 10:10 Dose: 100 mls/hr Documented by: Insulin Human Lispro (Humalog) 0 unit SUB-Q ACHS COUNT INCLUDES THE [facility]; Protocol Last Admin: 06/24/19 10:14 Dose: Not Given Documented by: Isosorbide Dinitrate (Isordil Titradose) 20 mg PO TID COUNT INCLUDES THE [facility] Last Admin: 06/24/19 10:09 Dose: 20 mg Documented by: Nitroglycerin (Nitrostat) 0.4 mg SL .Q5MIN PRN PRN Reason: Chest Pain Ondansetron HCl (Zofran) 4 mg IV Q8H PRN PRN Reason: Nausea And Vomiting Sodium Chloride (Sodium Chloride Flush Syringe 10 Ml) 10 ml IV BID COUNT INCLUDES THE [facility] Last Admin: 06/24/19 10:10 Dose: 10 ml Documented by: Sodium Chloride (Sodium Chloride Flush Syringe 10 Ml) 10 ml IV PRN PRN PRN Reason: LINE FLUSH Review of Systems All systems: negative Cardiovascular: chest pain Respiratory: cough Physical Examination Vital Signs Temp Pulse Resp BP Pulse Ox 98 F 84 16 152/78 95 06/24/19 02:37 06/24/19 02:37 06/24/19 02:37 06/24/19 02:37 06/24/19 02:37 General appearance: no acute distress HEENT: Positive: PERRL Neck: Positive: neck supple Cardiac: Positive: Reg Rate and Rhythm Lungs: Positive: Other (cough) Neuro: Positive: Grossly Intact Abdomen: Positive: Unremarkable Male genitourinary: Positive: deferred Skin: Positive: Clear Musculoskeletal: Normal Range of Motion Extremities: Present: normal Results 06/24/19 02:25 06/24/19 02:25 Cardiac Enzymes 06/24/19 Range/Units 05:53 CK-MB (CK-2) 3.0 (0.0-4.0) ng/mL Coagulation 06/24/19 Range/Units 02:25 PT 13.5 (12.2-14.9) Sec. INR 1.02 (0.87-1.13) APTT 34.7 (24.2-36.6) Sec. Lipids 06/24/19 Range/Units 02:25 Triglycerides 194 H (2-149) mg/dL Cholesterol 165 (50-199) mg/dL HDL Cholesterol 29 L (40-59) mg/dL Cholesterol/HDL Ratio 5.68 % CBC 06/24/19 Range/Units 02:25 WBC 8.7 (4.5-11.0) K/mm3 RBC 3.66 (3.65-5.03) M/mm3 Hgb 9.9 L (11.8-15.2) gm/dl Hct 29.6 L (35.5-45.6) % Plt Count 302 (140-440) K/mm3 Lymph # 0.9 L (1.2-5.4) K/mm3 [place] # 0.7 (0.0-0.8) K/mm3 Eos # 0.3 (0.0-0.4) K/mm3 Baso # 0.0 (0.0-0.1) K/mm3 Comprehensive Metabolic Panel 06/24/19 Range/Units 02:25 Sodium 139 (137-145) mmol/L Potassium 4.1 (3.6-5.0) mmol/L Chloride 102.0 (98-107) mmol/L Carbon Dioxide 24 (22-30) mmol/L BUN 26 H (9-20) mg/dL Creatinine 2.5 H (0.8-1.5) mg/dL Glucose 167 H (75-100) mg/dL Calcium 8.5 (8.4-10.2) mg/dL - Imaging and Cardiology Echo: report reviewed (05/2019: EF 58%, LVH, mildly dilated RA & RV) EKG interpretations - Telemetry EKG Rhythm: Sinus Rhythm - EKG Sinus rhythms and dysrhythmias: sinus rhythm Assessment and Plan Mr. Carter is a 54 y/o male admitted with chest pain. Mild troponin elevation likely secondary to CKD. Will obtain Lexiscan stress test. NPO after midnight. Further recommendations pending hospital course. Recommend pulmonology evaluation as well. The patient has been seen in conjunction with Dr. Bowling, who agrees with the assessment and plan. - Patient Problems (1) Acute on chronic diastolic HF (heart failure) Current Visit: Yes Status: Acute (2) Acute and chronic respiratory failure ([id number]) Current Visit: Yes Status: Acute (3) Elevated troponin Current Visit: Yes Status: Acute (4) Atypical chest pain Current Visit: No Status: Acute (5) Diabetes mellitus Current Visit: No Status: Chronic Qualifiers: Diabetes mellitus type: type 2 Diabetes mellitus complication status: without complication Qualified Code(s): E11.9 - Type 2 diabetes mellitus without complications (6) HTN (hypertension) Current Visit: No Status: Chronic Qualifiers: Hypertension type: essential hypertension Qualified Code(s): I10 - Essentia l (primary) hypertension (7) CKD (chronic kidney disease) Current Visit: Yes Status: Chronic
--- NOTE | 2019-06-24 13:11 | Event Note ---
Date: 06/24/19 Patient with shortness of breath, acute on chronic resp failure due to CHF exacerbation. I have seen and examined him.
--- NOTE | 2019-06-24 16:05 | Cat Scan Report ---
CT chest wo con INDICATION: Dyspnea. TECHNIQUE: All CT scans at this location are performed using the following dose modulation technique: Automated exposure control. Helical slices were obtained. No contrast is administered. COMPARISON: Chest radiograph performed earlier today FINDINGS: There is airspace consolidation lower lobes right greater than left. There is minimal patchy airspace opacity in the right upper lobe. No pneumothorax is seen. Fusion is seen. There is very small amount of pericardial fluid. Mildly prominent. The lymph nodes. Index right paratracheal node measures 1.4 cm in short axis. On review of bone windows, no acute osseous abnormalities are seen. IMPRESSION: 1. There is bilateral lower lobe airspace disease. This is suspicious for pneumonia. Mild mediastinal adenopathy may be reactive. Signer Name: Zen Sloan MD Signed: 06/24/2019 4:00 PM Workstation Name: [id number]
[2019-06-24] MEDS: ACETAMINOPHEN 325 MG TAB PO PRN (23:09)
[2019-06-25] MEDS: hydrALAZINE 100 MG TAB PO SCH ×3 (06:13→21:21)
[2019-06-25 06:34] LABS: Basophils % (Auto) 0.6 % (0.0-1.8); Eosinophils # (Auto) 0.3 K/mm3 (0.0-0.4); Eosinophils % (Auto) 4.3 % (0.0-4.3); Hematocrit 33.1 % (35.5-45.6); Hemoglobin 10.9 gm/dl (11.8-15.2); Lymphocytes # (Auto) 0.5 K/mm3 (1.2-5.4); Lymphocytes % (Auto) 6.6 % (13.4-35.0); Mean Corpuscular HGB Conc 33 % (32-34); Mean Corpuscular Volume 81 fl (84-94); Monocytes # (Auto) 0.5 K/mm3 (0.0-0.8); Monocytes % (Auto) 7.6 % (0.0-7.3); Platelet Count 313 K/mm3 (140-440); Red Blood Count 4.08 M/mm3 (3.65-5.03); Red Cell Distribution Width 17.2 % (13.2-15.2)
[2019-06-25 06:56] LABS: Calcium 8.5 mg/dL (8.4-10.2)
[2019-06-25] MEDS ORDERED: REGADENOSON 0.4 MG/5 ML INJ IV ONE ×2 (07:05→07:48)
[2019-06-25] MEDS: BENZONATATE 100 MG CAP PO SCH ×3 (07:38→21:21)
[2019-06-25] MEDS: FUROSEMIDE 40 MG/4 ML INJ IV SCH (07:38)
[2019-06-25] MEDS: INSULIN LISPRO 100 UNIT/ML SUB-Q SCH ×4 (08:22→23:07)
[2019-06-25] MEDS: carvediloL 25 MG TAB PO SCH (11:25)
[2019-06-25] MEDS: DOCUSATE SODIUM 100 MG CAP PO SCH (11:25)
[2019-06-25] MEDS: HEPARIN 5,000 UNIT/1 ML VIAL SUB-Q SCH ×2 (11:25→21:21)
[2019-06-25] MEDS: amLODIPine 10 MG TAB PO SCH (11:25)
[2019-06-25] MEDS: ISOSORBIDE DINITRATE 20 MG TAB PO SCH ×3 (11:36→21:20)
--- NOTE | 2019-06-25 12:50 | Consultation ---
History of Present Illness Consult date: 06/25/19 Reason for consult: dyspnea, cough, chest pain, asthma History of present illness: PULMONARY AND CRITICAL CARE CONSULTATION DR. BOO THANK YOU FOR ASKING ME TO PARTICIPATE IN THE CARE OF THIS PATIENT. 54-year-old -[place] male with history of CHF, CKD, hypertension, chronic respiratory failure with home O2 and diabetes who presents to [facility] ED with complaints of chest discomfort with nonproductive cough and difficulty in breathing. Patient states that he has been experiencing frequent cough, and progressively worsening shortness of breath for the last 3 weeks. He has tried nebulizer treatment and increasing use of home oxygen with no relief. Approximately 3 weeks ago he went to [facility] with complaints of cough. He was given a prescription for cough syrup with codeine. His cough still persists and his shortness of breath continue to worsened. He admits to chest discomfort with cough and intermittent hemoptysis. Patient also states that he noticed worsening bilateral lower extremity edema for the past week. He admits to being compliant with meds. Patient has history of smoking Marijuana for 10 years. stopped smoking Marijuana several years ago. Denies smoking cigaretts, alcohol. Denies drug abuse other than Marijuana. Patient worked in [employer]. Patient has history of chronic bronchitis and CKD, Allergic to GABAPENTIN. Patient and has 4 children. Patient having excessive cough. Patient is on 4 litres O2 and O2 saturation runn ing 94%. Patients Chest xray reported persistent prominent interstitial changes at the bases. CT of chest reported interstitial changes at the bases suspicious for pneumonia. Mild mediastinal adenopathy likely reactive. Patient is morbidly Obese. Patient said he was recommended for sleep study. He did not have any sleep study so far. Patient has symptoms of sleep apnea. Past History Past Medical History: heart failure, hypertension, renal failure Past Surgical History: Other (Salivary gland removed) Social history: , lives with family Family history: no significant family history Medications and Allergies Allergies Allergy/AdvReac Type Severity Reaction Status Date / Time No Known Allergies Allergy Verified 02/13/15 18:50 Home Medications Medication Instructions Recorded Confirmed Last Taken Type ALBUTEROL Inhaler (OR & NICU) 2 puff IH QID PRN #1 inhalation 12/26/16 06/24/19 Unknown Rx [ProAir HFA Inhaler] amLODIPine 10 mg PO DAILY #30 tablet 05/07/17 06/24/19 Unknown Rx glipiZIDE [glipiZIDE XL] 10 mg PO QPM #30 tab.er.24 05/07/17 06/24/19 Unknown Rx hydrALAZINE [Apresoline TAB] 100 mg PO Q8HR #90 tablet 05/07/17 06/24/19 Unknown Rx AtorvaSTATin 40 mg PO DAILY 06/24/19 06/24/19 Unknown History Bumetanide 1 mg PO DAILY 06/24/19 06/24/19 Unknown History Coreg 25 mg PO DAILY 06/24/19 06/24/19 Unknown History Isosorbide Dinitrate 20 mg PO TID 06/24/19 06/24/19 Unknown History Januvia 100 mg PO DAILY 06/24/19 06/24/19 Unknown History Lasix TAB 40 mg PO DAILY 06/24/19 06/24/19 Unknown History Terazosin (Nf) 5 mg PO HS 06/24/19 06/24/19 Unknown History Active Meds: Active Medications Acetaminophen (Tylenol) 650 mg PO Q4H PRN PRN Reason: Pain MILD(1-3)/Fever >100.5/STERN Last Admin: 06/24/19 23:09 Dose: 650 mg Documented by: Albuterol (Proventil) 2.5 mg IH Q3HRT PRN PRN Reason: Shortness Of Breath Amlodipine Besylate (Amlodipine) 10 mg PO DAILY [facility] Last Admin: 06/25/19 11:25 Dose: 10 mg Documented by: Atorvastatin Calcium (Lipitor) 40 mg PO DAILY [facility] Last Admin: 06/25/19 11:25 Dose: 40 mg Documented by: Benzonatate (Tessalon Perles) 100 mg PO Q8HR [facility] Stop: 06/27/19 05:59 Last Admin: 06/25/19 07:38 Dose: Not Given Documented by: Carvedilol (Coreg) 25 mg PO DAILY [facility] Last Admin: 06/25/19 11:25 Dose: 25 mg Documented by: Dextrose (D50w (25gm) Syringe) 50 ml IV Q30MIN PRN; Protocol PRN Reason: Hypoglycemia Docusate Sodium (Colace) 100 mg PO BID [facility] Last Admin: 06/25/19 11:25 Dose: 100 mg Documented by: Furosemide (Lasix) 40 mg IV BID@0600,1800 [facility] Last Admin: 06/25/19 07:38 Dose: Not Given Documented by: Glipizide (Glucotrol Xl) 10 mg PO QPMDIAB [facility] Last Admin: 06/24/19 18:03 Dose: 10 mg Documented by: Heparin Sodium (Porcine) (Heparin) 5,000 unit SUB-Q Q12HR [facility] Last Admin: 06/25/19 11:25 Dose: 5,000 unit Documented by: Hydralazine HCl (Apresoline) 100 mg PO Q8HR [facility] Last Admin: 06/25/19 06:13 Dose: 100 mg Documented by: Levofloxacin/Dextrose (Levaquin 750mg/150ml) 750 mg in 150 mls @ 100 mls/hr IV Q48HR [facility]; Protocol Last Admin: 06/24/19 10:10 Dose: 100 mls/hr Documented by: Insulin Human Lispro (Humalog) 0 unit SUB-Q ACHS [facility]; Protocol Last Admin: 06/25/19 12:11 Dose: Not Given Documented by: Isosorbide Dinitrate (Isordil Titradose) 20 mg PO TID [facility] Last Admin: 06/25/19 11:36 Dose: 20 mg Documented by: Nitroglycerin (Nitrostat) 0.4 mg SL .Q5MIN PRN PRN Reason: Chest Pain Ondansetron HCl (Zofran) 4 mg IV Q8H PRN PRN Reason: Nausea And Vomiting Sodium Chloride (Sodium Chloride Flush Syringe 10 Ml) 10 ml IV BID [facility] Last Admin: 06/25/19 11:26 Dose: 10 ml Documented by: Sodium Chloride (Sodium Chloride Flush Syringe 10 Ml) 10 ml IV PRN PRN PRN Reason: LINE FLUSH Review of Systems All systems: negative Physical Examination Vital signs: Vital Signs Temp Pulse Resp BP Pulse Ox 98 F 84 16 152/78 95 06/24/19 02:37 06/24/19 02:37 06/24/19 02:37 06/24/19 02:37 06/24/19 02:37 Results - Laboratory Findings CBC and BMP: 06/25/19 05:13 06/25/19 05:13 ABG POC ABG pH 7.456 (7.35-7.45) H 06/24/19 04:33 POC ABG pCO2 36.5 (35-45) 06/24/19 04:33 POC ABG pO2 81 (80-105) 06/24/19 04:33 POC ABG HCO3 25.8 (22-26 mml/L) 06/24/19 04:33 POC ABG Total CO2 27 (23-27mmol/L) 06/24/19 04:33 POC ABG O2 Sat 96 06/24/19 04:33 PT/INR, D-dimer PT 13.5 Sec. (12.2-14.9) 06/24/19 02:25 INR 1.02 (0.87-1.13) 06/24/19 02:25 Abnormal lab findings: Abnormal Labs 06/24/19 06/24/19 06/24/19 02:25 02:25 02:25 Hgb 9.9 L Hct 29.6 L MCV 81 L MCH 27 L RDW 17.6 H Lymph % (Auto) 9.9 L [place] % (Auto) 8.5 H Lymph # 0.9 L Seg Neutrophils % 78.1 H POC ABG pH BUN 26 H Creatinine 2.5 H Glucose 167 H POC Glucose Hemoglobin A1c Total Creatine Kinase Troponin T 0.051 H NT-Pro-B Natriuret Pep 1860 H Triglycerides 194 H HDL Cholesterol 29 L 06/24/19 06/24/19 06/24/19 02:25 04:33 05:53 Hgb Hct MCV MCH RDW Lymph % (Auto) [place] % (Auto) Lymph # Seg Neutrophils % POC ABG pH 7.456 H BUN Creatinine Glucose POC Glucose Hemoglobin A1c 8.6 H Total Creatine Kinase 773 H Troponin T 0.041 H NT-Pro-B Natriuret Pep Triglycerides HDL Cholesterol 06/24/19 06/24/19 06/24/19 09:36 13:16 16:24 Hgb Hct MCV MCH RDW Lymph % (Auto) [place] % (Auto) Lymph # Seg Neutrophils % POC ABG pH BUN Creatinine Glucose POC Glucose 151 H 144 H 140 H Hemoglobin A1c Total Creatine Kinase Troponin T NT-Pro-B Natriuret Pep Triglycerides HDL Cholesterol 06/24/19 06/25/19 06/25/19 20:52 05:13 05:13 Hgb 10.9 L Hct 33.1 L MCV 81 L MCH 27 L RDW 17.2 H Lymph % (Auto) 6.6 L [place] % (Auto) 7.6 H Lymph # 0.5 L Seg Neutrophils % 80.9 H POC ABG pH BUN 30 H Creatinine 2.6 H Glucose 125 H POC Glucose 162 H Hemoglobin A1c Total Creatine Kinase Troponin T NT-Pro-B Natriuret Pep Triglycerides HDL Cholesterol 06/25/19 12:05 Hgb Hct MCV MCH RDW Lymph % (Auto) [place] % (Auto) Lymph # Seg Neutrophils % POC ABG pH BUN Creatinine Glucose POC Glucose 238 H Hemoglobin A1c Total Creatine Kinase Troponin T NT-Pro-B Natriuret Pep Triglycerides HDL Cholesterol - Diagnostic Findings Chest x-ray: report reviewed (Persistent prominent interstitial changes.), image reviewed Assessment and Plan 54-year-old -Syrian male with history of CHF, CKD, hypertension, 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 Patient states that he has been experiencing frequent cough, and progressively worsening shortness of breath for the last 3 weeks. He has tried nebulizer treatment and increasing use of home oxygen with no relief. Approximately 3 weeks ago he went to [facility] with complaints of cough. He was given a prescription for cough syrup with codeine. His cough still persists and his shortness of breath continue to worsened. He admits to chest discomfort with cough and intermittent hemoptysis. Patient also states that he noticed worsening bilateral lower extremity edema for the past week. He admits to being compliant with meds. Patient has history of smoking Marijuana for 10 years. stopped smoking Marijuana several years ago. Denies smoking cigaretts, alcohol. Denies drug abuse other than Marijuana. Patient worked in [employer]. Patient has history of chronic bronchitis and CKD, Allergic to GABAPENTIN. Patient and has 4 children. Patient having excessive cough. Patient is on 4 litres O2 and O2 saturation running 94%. Patients Chest xray reported persistent prominent interstitial changes at the bases. CT of chest reported interstitial changes at the bases suspicious for pneumonia. Mild mediastinal adenopathy likely reactive. Patient is morbidly Obese. Patient said he was recommended for sleep study. He did not have any sleep study so far. Patient has symptoms of sleep apnea. I spent critical care time of 50 minutes on this patient obtaining history, examining the patient, [facility] of [facility], lab values, talking to nursing staff and respiratory therapy and work out plan of treatment. - Patient Problems (1) Acute and chronic respiratory failure ([id number]) Current Visit: Yes Status: Acute Qualifiers: Respiratory failure complication: hypoxia Qualified Code(s): J96.21 - Acute and chronic respiratory failure with hypoxia Plan to address problem: O2 4 litres via nasal canula. Albuterol/atrovent aerosol treatments q 6 hours. Continue I/V Levaquin. Starting on I/V solumedrol 125 mg I/V q 8 hours. Robitussin AC 10 ml po q 8 hours prn for cough. Continue S/C Heparin. Recommend GI Prophylaxis. (2) Acute on chronic diastolic HF (heart failure) Current Visit: Yes Status: Acute Plan to address problem: Management as per cardiology. (3) Elevated troponin Current Visit: Yes Status: Acute Plan to address problem: Management as per cardiology. (4) SHAYY (acute kidney injury) Current Visit: No Status: Acute Plan to address problem: Management as per Nephrology. (5) COPD (chronic obstructive pulmonary disease) Current Visit: No Status: Acute Plan to address problem: O2 4 litres via nasal canula. Albuterol/atrovent aerosol treatments q 6 hours. Continue I/V Levaquin. Starting on I/V solumedrol 125 mg I/V q 8 hours. Robitussin AC 10 ml po q 8 hours prn for cough. Continue S/C Heparin. Recommend GI Prophylaxis. Recommend PFTs as out patient. (6) Diabetes Current Visit: No Status: Acute Plan to address problem: Management as per primary care. (7) HTN (hypertension) Current Visit: No Status: Chronic Qualifiers: Hypertension type: essential hypertension Qualified Code(s): I10 - Essential (primary) hypertension Plan to address problem: Management as per primary care. (8) Pneumonia Current Visit: Yes Status: Acute Plan to address problem: Patient is on Levaquin.
--- NOTE | 2019-06-25 13:57 | Progress Note ---
Assessment and Plan Assessment and plan: Acute on chronic diastolic heart failure. Continue GDMT per cardiology recommendations. Acute on chronic hypoxic respiratory failure. Elevated troponin. Follow-up Lexiscan stress test results today. Diabetes mellitus type 2. Continue Accu-Cheks and sliding scale insulin Hypertension. Resume antihypertensive medications. CKD. Follow-up BMP. History Interval history: No new issues overnight. Hospitalist Physical - Constitutional Vitals: Temp Pulse Resp BP Pulse Ox 98.4 F 83 20 156/79 94 06/25/19 03:24 06/25/19 10:28 06/25/19 08:23 06/25/19 10:08 06/25/19 03:24 General appearance: Present: mild distress - EENT Eyes: Present: PERRL, EOM intact ENT: hearing intact, clear oral mucosa, dentition normal - Neck Neck: Present: supple, normal ROM - Respiratory Respiratory effort: normal Respiratory: bilateral: CTA - Cardiovascular Rhythm: regular Heart Sounds: Present: S1 & S2. Absent: gallop, rub - Extremities Extremities: no ischemia, No edema, Full ROM - Abdominal General gastrointestinal: soft, non-tender, non-distended, normal bowel sounds - Integumentary Integumentary: Present: clear, warm, dry - Neurologic Neurologic: CNII-XII intact, moves all extremities Results - Labs CBC & Chem 7: 06/25/19 05:13 06/25/19 05:13 Labs: Laboratory Last Values WBC 6.9 K/mm3 (4.5-11.0) 06/25/19 05:13 RBC 4.08 M/mm3 (3.65-5.03) 06/25/19 05:13 Hgb 10.9 gm/dl (11.8-15.2) L 06/25/19 05:13 Hct 33.1 % (35.5-45.6) L 06/25/19 05:13 MCV 81 fl (84-94) L 06/25/19 05:13 MCH 27 pg (28-32) L 06/25/19 05:13 MCHC 33 % (32-34) 06/25/19 05:13 RDW 17.2 % (13.2-15.2) H 06/25/19 05:13 Plt Count 313 K/mm3 (140-440) 06/25/19 05:13 Lymph % (Auto) 6.6 % (13.4-35.0) L 06/25/19 05:13 [place] % (Auto) 7.6 % (0.0-7.3) H 06/25/19 05:13 Eos % (Auto) 4.3 % (0.0-4.3) 06/25/19 05:13 Baso % (Auto) 0.6 % (0.0-1.8) 06/25/19 05:13 Lymph # 0.5 K/mm3 (1.2-5.4) L 06/25/19 05:13 [place] # 0.5 K/mm3 (0.0-0.8) 06/25/19 05:13 Eos # 0.3 K/mm3 (0.0-0.4) 06/25/19 05:13 Baso # 0.0 K/mm3 (0.0-0.1) 06/25/19 05:13 Seg Neutrophils % 80.9 % (40.0-70.0) H 06/25/19 05:13 Seg Neutrophils # 5.6 K/mm3 (1.8-7.7) 06/25/19 05:13 PT 13.5 Sec. (12.2-14.9) 06/24/19 02:25 INR 1.02 (0.87-1.13) 06/24/19 02:25 APTT 34.7 Sec. (24.2-36.6) 06/24/19 02:25 POC ABG pH 7.456 (7.35-7.45) H 06/24/19 04:33 POC ABG pCO2 36.5 (35-45) 06/24/19 04:33 POC ABG pO2 81 (80-105) 06/24/19 04:33 POC ABG HCO3 25.8 (22-26 mml/L) 06/24/19 04:33 POC ABG Total CO2 27 (23-27mmol/L) 06/24/19 04:33 POC ABG O2 Sat 96 06/24/19 04:33 POC ABG Base Excess 2 ((-2) - (+3)mmol/L) 06/24/19 04:33 FiO2 36 % 06/24/19 04:33 Sodium 141 mmol/L (137-145) 06/25/19 05:13 Potassium 3.6 mmol/L (3.6-5.0) 06/25/19 05:13 Chloride 102.7 mmol/L (98-107) 06/25/19 05:13 Carbon Dioxide 24 mmol/L (22-30) 06/25/19 05:13 Anion Gap 18 mmol/L 06/25/19 05:13 BUN 30 mg/dL (9-20) H 06/25/19 05:13 Creatinine 2.6 mg/dL (0.8-1.5) H 06/25/19 05:13 Estimated GFR 31 ml/min 06/25/19 05:13 BUN/Creatinine Ratio 12 % 06/25/19 05:13 Glucose 125 mg/dL (75-100) H 06/25/19 05:13 POC Glucose 238 (70-105) H 06/25/19 12:05 Hemoglobin A1c 8.6 % (4-6) H 06/24/19 02:25 Lactic Acid 0.90 mmol/L (0.7-2.0) 06/24/19 02:25 Calcium 8.5 mg/dL (8.4-10.2) 06/25/19 05:13 Magnesium 2.30 mg/dL (1.7-2.3) 06/24/19 02:25 Total Creatine Kinase 773 units/L (55-170) H 06/24/19 05:53 CK-MB (CK-2) 3.0 ng/mL (0.0-4.0) 06/24/19 05:53 CK-MB (CK-2) Rel Index 0.3 (0-4) 06/24/19 05:53 Troponin T 0.041 ng/mL (0.00-0.029) H 06/24/19 05:53 NT-Pro-B Natriuret Pep 1860 pg/mL (0-900) H 06/24/19 02:25 Triglycerides 194 mg/dL (2-149) H 06/24/19 02:25 Cholesterol 165 mg/dL (50-199) 06/24/19 02:25 LDL Cholesterol Direct 95 mg/dL (50-130) 06/24/19 02:25 HDL Cholesterol 29 mg/dL (40-59) L 06/24/19 02:25 Cholesterol/HDL Ratio 5.68 % 06/24/19 02:25 Active Medications - Current Medications Current Medications: Generic Name Dose Route Start Last Admin Trade Name Freq PRN Reason Stop Dose Admin Acetaminophen 650 mg 06/24/19 05:22 06/24/19 23:09 Tylenol PO 650 mg Q4H PRN Administration Pain MILD(1-3)/Fever >100.5/STERN Albuterol 2.5 mg 06/24/19 05:27 Proventil IH Q3HRT PRN Shortness Of Breath Amlodipine Besylate 10 mg 06/24/19 10:00 06/25/19 11:25 Amlodipine PO 10 mg DAILY JONATHAN Administration Atorvastatin Calcium 40 mg 06/24/19 10:00 06/25/19 11:25 Lipitor PO 40 mg DAILY JONATHAN Administration Benzonatate 100 mg 06/24/19 06:00 06/25/19 07:38 Tessalon Perles PO 06/27/19 05:59 Not Given Q8HR JONATHAN Carvedilol 25 mg 06/24/19 10:00 06/25/19 11:25 Coreg PO 25 mg DAILY JONATHAN Administration Dextrose 50 ml 06/24/19 05:27 D50w (25gm) Syringe IV Q30MIN PRN Hypoglycemia Protocol Docusate Sodium 100 mg 06/24/19 10:00 06/25/19 11:25 Colace PO 100 mg BID JONATHAN Administration Furosemide 40 mg 06/24/19 06:00 06/25/19 07:38 Lasix IV Not Given BID@0600,1800 [facility] Glipizide 10 mg 06/24/19 17:00 06/24/19 18:03 Glucotrol Xl PO 10 mg QPMDIAB JONATHAN Administration Heparin Sodium (Porcine) 5,000 unit 06/24/19 10:00 06/25/19 11:25 Heparin SUB-Q 5,000 unit Q12HR JONATHAN Administration Hydralazine HCl 100 mg 06/24/19 06:00 06/25/19 06:13 Apresoline PO 100 mg Q8HR JONATHAN Administration Levofloxacin/Dextrose 750 mg in 150 mls @ 100 mls/hr 06/24/19 10:00 06/24/19 10:10 Levaquin 750mg/150ml IV 100 mls/hr Q48HR JONATHAN Administration Protocol Insulin Human Lispro 0 unit 06/24/19 07:30 06/25/19 12:11 Humalog SUB-Q Not Given ACHS [facility] Protocol Isosorbide Dinitrate 20 mg 06/24/19 08:00 06/25/19 11:36 Isordil Titradose PO 20 mg TID JONATHAN Administration Nitroglycerin 0.4 mg 06/24/19 05:27 Nitrostat SL .Q5MIN PRN Chest Pain Ondansetron HCl 4 mg 06/24/19 05:22 Zofran IV Q8H PRN Nausea And Vomiting Sodium Chloride 10 ml 06/24/19 10:00 06/25/19 11:26 Sodium Chloride Flush Syringe 10 Ml IV 10 ml BID JONATHAN Administration Sodium Chloride 10 ml 06/24/19 05:22 Sodium Chloride Flush Syringe 10 Ml IV PRN PRN LINE FLUSH
--- NOTE | 2019-06-25 14:01 | Progress Note ---
Assessment and Plan Cardiac status is improved. Stress test negative; patient attributes CP to persistent strong cough. Will transition to home PO Lasix. The patient has been seen in conjunction with Dr. Cameron, who agrees with the assessment and plan. - Patient Problems (1) Acute on chronic diastolic HF (heart failure) Current Visit: Yes Status: Acute (2) Acute and chronic respiratory failure ([id number]) Current Visit: Yes Status: Acute (3) Elevated troponin Current Visit: Yes Status: Acute (4) Atypical chest pain Current Visit: No Status: Acute (5) Diabetes mellitus Current Visit: No Status: Chronic Qualifiers: Diabetes mellitus type: type 2 Diabetes mellitus complication status: without complication Qualified Code(s): E11.9 - Type 2 diabetes mellitus without complications (6) HTN (hypertension) Current Visit: No Status: Chronic Qualifiers: Hypertension type: essential hypertension Qualified Code(s): I10 - Essential (primary) hypertension (7) CKD (chronic kidney disease) Current Visit: Yes Status: Chronic Subjective Date of service: 06/25/19 Interval history: The patient is sitting up in bed in [facility]. He has a persistent, strong, nonproductive cough. Stress test negative. SR in 80s on telemetry. Objective Last Vital Signs Temp 98.4 F 06/25/19 03:24 Pulse 83 06/25/19 10:28 Resp 20 06/25/19 08:23 BP 156/79 06/25/19 10:08 Pulse Ox 94 06/25/19 03:24 - Physical Examination General: No Apparent Distress HEENT: Positive: PERRL Neck: Positive: neck supple Cardiac: Positive: Reg Rate and Rhythm Lungs: Positive: clear to auscultation, Other (cough) Neuro: Positive: Grossly Intact Abdomen: Positive: Unremarkable Skin: Positive: Clear Musculoskeletal: Normal Range of Motion Extremities: Present: normal - Labs and Meds CBC 06/25/19 Range/Units 05:13 WBC 6.9 (4.5-11.0) K/mm3 RBC 4.08 (3.65-5.03) M/mm3 Hgb 10.9 L (11.8-15.2) gm/dl Hct 33.1 L (35.5-45.6) % Plt Count 313 (140-440) K/mm3 Lymph # 0.5 L (1.2-5.4) K/mm3 [place] # 0.5 (0.0-0.8) K/mm3 Eos # 0.3 (0.0-0.4) K/mm3 Baso # 0.0 (0.0-0.1) K/mm3 Comprehensive Metabolic Panel 06/25/19 Range/Units 05:13 Sodium 141 (137-145) mmol/L Potassium 3.6 (3.6-5.0) mmol/L Chloride 102.7 (98-107) mmol/L Carbon Dioxide 24 (22-30) mmol/L BUN 30 H (9-20) mg/dL Creatinine 2.6 H (0.8-1.5) mg/dL Glucose 125 H (75-100) mg/dL Calcium 8.5 (8.4-10.2) mg/dL - Imaging and Cardiology Nuclear stress test: report reviewed (06/25/2019: Negative) Echo: report reviewed (05/2019: EF 58%, LVH, mildly dilated RA & RV) - EKG Sinus rhythms and dysrhythmias: sinus rhythm
[2019-06-25] MEDS: guaiFENesin/CODEINE 100-10MG ORAL LIQD 5 ML PO PRN (15:53)
[2019-06-25] MEDS: methylPREDNISolone Sod Succinate 125 MG/2 ML INJ IV SCH (21:21)
[2019-06-26] MEDS: methylPREDNISolone Sod Succinate 125 MG/2 ML INJ IV SCH ×3 (05:44→21:39)
[2019-06-26] MEDS: hydrALAZINE 100 MG TAB PO SCH ×3 (05:44→21:39)
[2019-06-26] MEDS: BENZONATATE 100 MG CAP PO SCH (05:44)
[2019-06-26] MEDS: INSULIN LISPRO 100 UNIT/ML SUB-Q SCH ×4 (08:18→23:12)
[2019-06-26] MEDS: FUROSEMIDE 40 MG TAB PO SCH (09:05)
[2019-06-26] MEDS: ISOSORBIDE DINITRATE 20 MG TAB PO SCH ×3 (09:05→21:39)
[2019-06-26] MEDS: amLODIPine 10 MG TAB PO SCH (09:05)
[2019-06-26] MEDS: carvediloL 25 MG TAB PO SCH (09:05)
[2019-06-26] MEDS: HEPARIN 5,000 UNIT/1 ML VIAL SUB-Q SCH ×2 (09:05→21:39)
[2019-06-26] MEDS: guaiFENesin/CODEINE 100-10MG ORAL LIQD 5 ML PO PRN (09:06)
--- NOTE | 2019-06-26 11:11 | Progress Note ---
Assessment and Plan Assessment and plan: Acute on chronic diastolic heart failure. Continue GDMT per cardiology recommendations. EF 40%. Acute on chronic hypoxic respiratory failure. Acute on CKD. Consult nephrology for further evaluation. Elevated troponin. Stress test revealed normal LV perfusion and no ECG changes consistent with ischemia. However, global left ventricular systolic function was moderately reduced with EF of 40%. Diabetes mellitus type 2. Continue Accu-Cheks and sliding scale insulin Hypertension. Resume antihypertensive medications. CKD. Follow-up BMP. History Interval history: No new issues overnight. Patient reports that his breathing is better. No reports of chest pain. Hospitalist Physical - Constitutional Vitals: Temp Pulse Resp BP Pulse Ox 98.5 F 81 22 173/99 98 06/26/19 07:26 06/26/19 10:00 06/26/19 07:26 06/26/19 07:26 06/26/19 07:26 General appearance: Present: mild distress - EENT Eyes: Present: PERRL, EOM intact ENT: hearing intact, clear oral mucosa, dentition normal - Neck Neck: Present: supple, normal ROM - Respiratory Respiratory effort: normal Respiratory: bilateral: CTA - Cardiovascular Rhythm: regular Heart Sounds: Present: S1 & S2. Absent: gallop, rub - Extremities Extremities: no ischemia, No edema, Full ROM - Abdominal General gastrointestinal: soft, non-tender, non-distended, normal bowel sounds - Integumentary Integumentary: Present: clear, warm, dry - Neurologic Neurologic: CNII-XII intact, moves all extremities Results - Labs CBC & Chem 7: 06/25/19 05:13 06/25/19 05:13 Labs: Laboratory Last Values WBC 6.9 K/mm3 (4.5-11.0) 06/25/19 05:13 RBC 4.08 M/mm3 (3.65-5.03) 06/25/19 05:13 Hgb 10.9 gm/dl (11.8-15.2) L 06/25/19 05:13 Hct 33.1 % (35.5-45.6) L 06/25/19 05:13 MCV 81 fl (84-94) L 06/25/19 05:13 MCH 27 pg (28-32) L 06/25/19 05:13 MCHC 33 % (32-34) 06/25/19 05:13 RDW 17.2 % (13.2-15.2) H 06/25/19 05:13 Plt Count 313 K/mm3 (140-440) 06/25/19 05:13 Lymph % (Auto) 6.6 % (13.4-35.0) L 06/25/19 05:13 [place] % (Auto) 7.6 % (0.0-7.3) H 06/25/19 05:13 Eos % (Auto) 4.3 % (0.0-4.3) 06/25/19 05:13 Baso % (Auto) 0.6 % (0.0-1.8) 06/25/19 05:13 Lymph # 0.5 K/mm3 (1.2-5.4) L 06/25/19 05:13 [place] # 0.5 K/mm3 (0.0-0.8) 06/25/19 05:13 Eos # 0.3 K/mm3 (0.0-0.4) 06/25/19 05:13 Baso # 0.0 K/mm3 (0.0-0.1) 06/25/19 05:13 Seg Neutrophils % 80.9 % (40.0-70.0) H 06/25/19 05:13 Seg Neutrophils # 5.6 K/mm3 (1.8-7.7) 06/25/19 05:13 PT 13.5 Sec. (12.2-14.9) 06/24/19 02:25 INR 1.02 (0.87-1.13) 06/24/19 02:25 APTT 34.7 Sec. (24.2-36.6) 06/24/19 02:25 POC ABG pH 7.456 (7.35-7.45) H 06/24/19 04:33 POC ABG pCO2 36.5 (35-45) 06/24/19 04:33 POC ABG pO2 81 (80-105) 06/24/19 04:33 POC ABG HCO3 25.8 (22-26 mml/L) 06/24/19 04:33 POC ABG Total CO2 27 (23-27mmol/L) 06/24/19 04:33 POC ABG O2 Sat 96 06/24/19 04:33 POC ABG Base Excess 2 ((-2) - (+3)mmol/L) 06/24/19 04:33 FiO2 36 % 06/24/19 04:33 Sodium 141 mmol/L (137-145) 06/25/19 05:13 Potassium 3.6 mmol/L (3.6-5.0) 06/25/19 05:13 Chloride 102.7 mmol/L (98-107) 06/25/19 05:13 Carbon Dioxide 24 mmol/L (22-30) 06/25/19 05:13 Anion Gap 18 mmol/L 06/25/19 05:13 BUN 30 mg/dL (9-20) H 06/25/19 05:13 Creatinine 2.6 mg/dL (0.8-1.5) H 06/25/19 05:13 Estimated GFR 31 ml/min 06/25/19 05:13 BUN/Creatinine Ratio 12 % 06/25/19 05:13 Glucose 125 mg/dL (75-100) H 06/25/19 05:13 POC Glucose 420 (70-105) H 06/26/19 07:35 Hemoglobin A1c 8.6 % (4-6) H 06/24/19 02:25 Lactic Acid 0.90 mmol/L (0.7-2.0) 06/24/19 02:25 Calcium 8.5 mg/dL (8.4-10.2) 06/25/19 05:13 Magnesium 2.30 mg/dL (1.7-2.3) 06/24/19 02:25 Total Creatine Kinase 773 units/L (55-170) H 06/24/19 05:53 CK-MB (CK-2) 3.0 ng/mL (0.0-4.0) 06/24/19 05:53 CK-MB (CK-2) Rel Index 0.3 (0-4) 06/24/19 05:53 Troponin T 0.041 ng/mL (0.00-0.029) H 06/24/19 05:53 NT-Pro-B Natriuret Pep 1860 pg/mL (0-900) H 06/24/19 02:25 Triglycerides 194 mg/dL (2-149) H 06/24/19 02:25 Cholesterol 165 mg/dL (50-199) 06/24/19 02:25 LDL Cholesterol Direct 95 mg/dL (50-130) 06/24/19 02:25 HDL Cholesterol 29 mg/dL (40-59) L 06/24/19 02:25 Cholesterol/HDL Ratio 5.68 % 06/24/19 02:25 Active Medications - Current Medications Current Medications: Generic Name Dose Route Start Last Admin Trade Name Freq PRN Reason Stop Dose Admin Acetaminophen 650 mg 06/24/19 05:22 06/24/19 23:09 Tylenol PO 650 mg Q4H PRN Administration Pain MILD(1-3)/Fever >100.5/STERN Albuterol 2.5 mg 06/24/19 05:27 06/25/19 16:10 Proventil IH 2.5 mg Q3HRT PRN Administration Shortness Of Breath Amlodipine Besylate 10 mg 06/24/19 10:00 06/26/19 09:05 Amlodipine PO 10 mg DAILY JONATHAN Administration Atorvastatin Calcium 40 mg 06/24/19 10:00 06/26/19 09:05 Lipitor PO 40 mg DAILY JONATHAN Administration Carvedilol 25 mg 06/24/19 10:00 06/26/19 09:05 Coreg PO 25 mg DAILY JONATHAN Administration Dextrose 50 ml 06/24/19 05:27 D50w (25gm) Syringe IV Q30MIN PRN Hypoglycemia Protocol Furosemide 40 mg 06/26/19 10:00 06/26/19 09:05 Lasix PO 40 mg QDAY JONATHAN Administration Glipizide 10 mg 06/24/19 17:00 06/25/19 17:13 Glucotrol Xl PO Not Given QPMDIAB [facility] Heparin Sodium (Porcine) 5,000 unit 06/24/19 10:00 06/26/19 09:05 Heparin SUB-Q 5,000 unit Q12HR JONATHAN Administration Hydralazine HCl 100 mg 06/24/19 06:00 06/26/19 05:44 Apresoline PO 100 mg Q8HR JONATHAN Administration Levofloxacin/Dextrose 750 mg in 150 mls @ 100 mls/hr 06/24/19 10:00 06/26/19 09:05 Levaquin 750mg/150ml IV 100 mls/hr Q48HR JONATHAN Administration Protocol Insulin Human Lispro 0 unit 06/24/19 07:30 06/26/19 08:18 Humalog SUB-Q 8 unit ACHS JONATHAN Administration Protocol Isosorbide Dinitrate 20 mg 06/24/19 08:00 06/26/19 09:05 Isordil Titradose PO 20 mg TID JONATHAN Administration Methylprednisolone Sodium Succinate 125 mg 06/25/19 22:00 06/26/19 05:44 Solu-Medrol IV 125 mg Q8HR JONATHAN Administration Nitroglycerin 0.4 mg 06/24/19 05:27 Nitrostat SL .Q5MIN PRN Chest Pain Ondansetron HCl 4 mg 06/24/19 05:22 Zofran IV Q8H PRN Nausea And Vomiting Pseudoephedrine/Acetam/Chlorphenir 10 ml 06/25/19 15:45 06/26/19 09:06 Robitussin Ac PO 10 ml Q8H PRN Administration Cough Sodium Chloride 10 ml 06/24/19 10:00 06/26/19 09:06 Sodium Chloride Flush Syringe 10 Ml IV 10 ml BID JONATHAN Administration Sodium Chloride 10 ml 06/24/19 05:22 06/26/19 05:48 Sodium Chloride Flush Syringe 10 Ml IV 10 ml PRN PRN Administration LINE FLUSH
--- NOTE | 2019-06-26 11:29 | Progress Note ---
Assessment and Plan Patient alert, awake and sitting up in chair. Patients cough much better than yesterday. Breathing also better than yesterday. Patient is on 4 litres O2. O2 saturation running 95%. Patient afebrile. No leukocytosis. - Patient Problems (1) Acute and chronic respiratory failure ([id number]) Current Visit: Yes Status: Acute Qualifiers: Respiratory failure complication: hypoxia Qualified Code(s): J96.21 - Acute and chronic respiratory failure with hypoxia Plan to address problem: O2 4 litres via nasal canula. Albuterol/atrovent aerosol treatments q 6 hours. Continue I/V Levaquin. Starting on I/V solumedrol 125 mg I/V q 8 hours. Robitussin AC 10 ml po q 8 hours prn for cough. Continue S/C Heparin. Recommend GI Prophylaxis. (2) Acute on chronic diastolic HF (heart failure) Current Visit: Yes Status: Acute Plan to address problem: Management as per cardiology. (3) Elevated troponin Current Visit: Yes Status: Acute Plan to address problem: Management as per cardiology. (4) SHAYY (acute kidney injury) Current Visit: No Status: Acute Plan to address problem: Management as per Nephrology. (5) COPD (chronic obstructive pulmonary disease) Current Visit: No Status: Acute Plan to address problem: O2 4 litres via nasal canula. Albuterol/atrovent aerosol treatments q 6 hours. Continue I/V Levaquin. Starting on I/V solumedrol 125 mg I/V q 8 hours. Robitussin AC 10 ml po q 8 hours prn for cough. Continue S/C Heparin. Recommend GI Prophylaxis. Recommend PFTs as out patient. (6) Diabetes Current Visit: No Status: Acute Plan to address problem: Management as per primary care. (7) HTN (hypertension) Current Visit: No Status: Chronic Qualifiers: Hypertension type: essential hypertension Qualified Code(s): I10 - Essential (primary) hypertension Plan to address problem: Management as per primary care. (8) Pneumonia Current Visit: Yes Status: Acute Plan to address problem: Patient is on Levaquin. Subjective Date of service: 06/26/19 Interval history: Patient alert, awake and sitting up in chair. Patients cough much better than yesterday. Breathing also better than yesterday. Patient is on 4 litres O2. O2 saturation running 95%. Patient afebrile. No leukocytosis. Objective Vital Signs - 12hr 06/25/19 06/26/19 06/26/19 23:52 03:44 04:50 Temperature 98.7 F 99.4 F Pulse Rate 85 89 85 Respiratory 20 22 Rate Blood Pressure 135/75 154/87 O2 Sat by Pulse 92 94 Oximetry 06/26/19 06/26/19 06/26/19 07:21 07:26 10:00 Temperature 98.5 F Pulse Rate 80 81 Respiratory 20 22 Rate Blood Pressure 173/99 O2 Sat by Pulse 98 Oximetry Constitutional: no acute distress, alert, other (Still has some cough) Eyes: non-icteric ENT: oropharynx moist Neck: supple, no lymphadenopathy Ascultation: Bilateral: diminished breath sounds, wheezes, rhonchi Cardiovascular: regular rate and rhythm Gastrointestinal: normoactive bowel sounds, soft, non-tender Integumentary: normal Extremities: no cyanosis, no edema Neurologic: normal mental status, non-focal exam, pupils equal and round, CN II- XII normal Psychiatric: mood appropriate CBC and BMP: 06/25/19 05:13 06/25/19 05:13 ABG, PT/INR, D-dimer: ABG POC ABG pH 7.456 (7.35-7.45) H 06/24/19 04:33 POC ABG pCO2 36.5 (35-45) 06/24/19 04:33 POC ABG pO2 81 (80-105) 06/24/19 04:33 POC ABG HCO3 25.8 (22-26 mml/L) 06/24/19 04:33 POC ABG Total CO2 27 (23-27mmol/L) 06/24/19 04:33 POC ABG O2 Sat 96 06/24/19 04:33 PT/INR, D-dimer PT 13.5 Sec. (12.2-14.9) 06/24/19 02:25 INR 1.02 (0.87-1.13) 06/24/19 02:25 Abnormal lab findings: Abnormal Labs 06/24/19 06/24/19 06/24/19 02:25 02:25 02:25 Hgb 9.9 L Hct 29.6 L MCV 81 L MCH 27 L RDW 17.6 H Lymph % (Auto) 9.9 L [place] % (Auto) 8.5 H Lymph # 0.9 L Seg Neutrophils % 78.1 H POC ABG pH BUN 26 H Creatinine 2.5 H Glucose 167 H POC Glucose Hemoglobin A1c Total Creatine Kinase Troponin T 0.051 H NT-Pro-B Natriuret Pep 1860 H Triglycerides 194 H HDL Cholesterol 29 L 06/24/19 06/24/19 06/24/19 02:25 04:33 05:53 Hgb Hct MCV MCH RDW Lymph % (Auto) [place] % (Auto) Lymph # Seg Neutrophils % POC ABG pH 7.456 H BUN Creatinine Glucose POC Glucose Hemoglobin A1c 8.6 H Total Creatine Kinase 773 H Troponin T 0.041 H NT-Pro-B Natriuret Pep Triglycerides HDL Cholesterol 06/24/19 06/24/19 06/24/19 09:36 13:16 16:24 Hgb Hct MCV MCH RDW Lymph % (Auto) [place] % (Auto) Lymph # Seg Neutrophils % POC ABG pH BUN Creatinine Glucose POC Glucose 151 H 144 H 140 H Hemoglobin A1c Total Creatine Kinase Troponin T NT-Pro-B Natriuret Pep Triglycerides HDL Cholesterol 06/24/19 06/25/19 06/25/19 20:52 05:13 05:13 Hgb 10.9 L Hct 33.1 L MCV 81 L MCH 27 L RDW 17.2 H Lymph % (Auto) 6.6 L [place] % (Auto) 7.6 H Lymph # 0.5 L Seg Neutrophils % 80.9 H POC ABG pH BUN 30 H Creatinine 2.6 H Glucose 125 H POC Glucose 162 H Hemoglobin A1c Total Creatine Kinase Troponin T NT-Pro-B Natriuret Pep Triglycerides HDL Cholesterol 06/25/19 06/25/19 06/26/19 12:05 22:36 07:35 Hgb Hct MCV MCH RDW Lymph % (Auto) [place] % (Auto) Lymph # Seg Neutrophils % POC ABG pH BUN Creatinine Glucose POC Glucose 238 H 158 H 420 H Hemoglobin A1c Total Creatine Kinase Troponin T NT-Pro-B Natriuret Pep Triglycerides HDL Cholesterol
--- NOTE | 2019-06-26 12:40 | Consultation ---
History of Present Illness - Reason for Consult Consult date: 06/26/19 acute renal failure, chronic renal failure - History of Present Illness The patient is 54 YO AAM with history significant for Morbid Obesity, DM type 2, HTN, HLD, chronic HFpEF, CKD stage 3 and chronic hypoxic respiratory failure on home oxygen who presented to [facility] ED with worsening chest pain and shortness of breath for about 3 weeks. He admits a persistent nonproductive cough which makes him difficult to sleep and prevented him from lying flat. The chest pain occurs mostly with coughing. He also reports LE edema. Since admission his symptoms are improving. Labs significant for Creat 2.6. Nephrology was consu lted for further evaluation. Past History Past Medical History: diabetes, heart failure, hypertension, hyperlipidemia, renal failure, other (Morbid Obesity) Past Surgical History: Other (Salivary gland removed) Social history: , lives with family Family history: no significant family history Medications and Allergies Allergies Allergy/AdvReac Type Severity Reaction Status Date / Time No Known Allergies Allergy Verified 02/13/15 18:50 Home Medications Medication Instructions Recorded Confirmed Last Taken Type ALBUTEROL Inhaler (OR & NICU) 2 puff IH QID PRN #1 inhalation 12/26/16 06/24/19 Unknown Rx [ProAir HFA Inhaler] amLODIPine 10 mg PO DAILY #30 tablet 05/07/17 06/24/19 Unknown Rx glipiZIDE [glipiZIDE XL] 10 mg PO QPM #30 tab.er.24 05/07/17 06/24/19 Unknown Rx hydrALAZINE [Apresoline TAB] 100 mg PO Q8HR #90 tablet 05/07/17 06/24/19 Unknown Rx AtorvaSTATin 40 mg PO DAILY 06/24/19 06/24/19 Unknown History Bumetanide 1 mg PO DAILY 06/24/19 06/24/19 Unknown History Coreg 25 mg PO DAILY 06/24/19 06/24/19 Unknown History Isosorbide Dinitrate 20 mg PO TID 06/24/19 06/24/19 Unknown History Januvia 100 mg PO DAILY 06/24/19 06/24/19 Unknown History Lasix TAB 40 mg PO DAILY 06/24/19 06/24/19 Unknown History Terazosin (Nf) 5 mg PO HS 06/24/19 06/24/19 Unknown History Active Meds: Active Medications Acetaminophen (Tylenol) 650 mg PO Q4H PRN PRN Reason: Pain MILD(1-3)/Fever >100.5/STERN Last Admin: 06/24/19 23:09 Dose: 650 mg Documented by: Albuterol (Proventil) 2.5 mg IH Q3HRT PRN PRN Reason: Shortness Of Breath Last Admin: 06/25/19 16:10 Dose: 2.5 mg Documented by: Amlodipine Besylate (Amlodipine) 10 mg PO DAILY [facility] Last Admin: 06/26/19 09:05 Dose: 10 mg Documented by: Atorvastatin Calcium (Lipitor) 40 mg PO DAILY [facility] Last Admin: 06/26/19 09:05 Dose: 40 mg Documented by: Carvedilol (Coreg) 25 mg PO DAILY [facility] Last Admin: 06/26/19 09:05 Dose: 25 mg Documented by: Dextrose (D50w (25gm) Syringe) 50 ml IV Q30MIN PRN; Protocol PRN Reason: Hypoglycemia Furosemide (Lasix) 40 mg PO QDAY [facility] Last Admin: 06/26/19 09:05 Dose: 40 mg Documented by: Glipizide (Glucotrol Xl) 10 mg PO QPMDIAB [facility] Last Admin: 06/25/19 17:13 Dose: Not Given Documented by: Heparin Sodium (Porcine) (Heparin) 5,000 unit SUB-Q Q12HR [facility] Last Admin: 06/26/19 09:05 Dose: 5,000 unit Documented by: Hydralazine HCl (Apresoline) 100 mg PO Q8HR [facility] Last Admin: 06/26/19 05:44 Dose: 100 mg Documented by: Levofloxacin/Dextrose (Levaquin 750mg/150ml) 750 mg in 150 mls @ 100 mls/hr IV Q48HR [facility]; Protocol Last Admin: 06/26/19 09:05 Dose: 100 mls/hr Documented by: Insulin Human Lispro (Humalog) 0 unit SUB-Q ACHS [facility]; Protocol Last Admin: 06/26/19 12:24 Dose: 8 unit Documented by: Isosorbide Dinitrate (Isordil Titradose) 20 mg PO TID [facility] Last Admin: 06/26/19 09:05 Dose: 20 mg Documented by: Methylprednisolone Sodium Succinate (Solu-Medrol) 125 mg IV Q8HR [facility] Last Admin: 06/26/19 05:44 Dose: 125 mg Documented by: Nitroglycerin (Nitrostat) 0.4 mg SL .Q5MIN PRN PRN Reason: Chest Pain Ondansetron HCl (Zofran) 4 mg IV Q8H PRN PRN Reason: Nausea And Vomiting Pseudoephedrine/Acetam/Chlorphenir (Robitussin Ac) 10 ml PO Q8H PRN PRN Reason: Cough Last Admin: 06/26/19 09:06 Dose: 10 ml Documented by: Sodium Chloride (Sodium Chloride Flush Syringe 10 Ml) 10 ml IV BID JONATHAN Last Admin: 06/26/19 09:06 Dose: 10 ml Documented by: Sodium Chloride (Sodium Chloride Flush Syringe 10 Ml) 10 ml IV PRN PRN PRN Reason: LINE FLUSH Last Admin: 06/26/19 05:48 Dose: 10 ml Documented by: Review of Systems Constitutional: no weight loss, no weight gain, no fever, no chills, no anorexia, no fatigue, no weakness, no poor appetite Cardiovascular: chest pain, orthopnea, shortness of breath, dyspnea on exertion, paroxysmal nocturnal dyspnea, high blood pressure, leg edema, no palpitations, no edema, no syncope, no lightheadedness Respiratory: cough, cough with sputum, shortness of breath, dyspnea on exertion, no hemoptysis Gastrointestinal: no abdominal pain, no nausea, no vomiting, no diarrhea, no BRBPR, no melena, no hematochezia Genitourinary Male: no dysuria, no hematuria, no kidney stones Rectal: no bleeding Musculoskeletal: no low back pain, no morning stiffness, no muscle weakness, no muscle cramps Integumentary: no rash, no sores, no wounds, no jaundice Neurological: no seizures, no syncope, no convulsions, no aphasia, no change in speech, no change in mentation, no confusion, no memory loss Exam - Vital Signs Vital signs: Vital Signs Temp Pulse Resp BP Pulse Ox 98 F 84 16 152/78 95 06/24/19 02:37 06/24/19 02:37 06/24/19 02:37 06/24/19 02:37 06/24/19 02:37 - General Appearance General appearance: well-developed, well-nourished, appears stated age, obese, other (not in distress) EENT: ATNC, PERRL, mucous membranes moist, hearing intact, vision intact Neck: Present: neck supple, trachea midline Respiratory: Rales Heart: regular, S1S2, no murmurs Gastrointestinal: Present: normoactive bowel sounds, obese. Absent: tenderness Integumentary: no rash, warm and dry Neurologic: no focal deficit, no asterixis, alert and oriented x3 Musculoskeletal: Present: other (Trace LE edema noted) Results - Lab Results 06/25/19 05:13 06/25/19 05:13 Most recent lab results Calcium 8.5 mg/dL (8.4-10.2) 06/25/19 05:13 Magnesium 2.30 mg/dL (1.7-2.3) 06/24/19 02:25 - Image Kidney/bladder ultrasound: pending Assessment and Plan 1. Acute kidney injury: Likely vasomotor SHAYY superimposed on CKD stage 3 in the decompensated CHF. ?progressive CKD. Urine studies and Renal US pending. Monitor renal function. Renal prognosis is guarded. Avoid nephrotoxic agents. Meds dosage based on GFR. 2. FEN: Volume overload, continue Lasix. Monitor lytes. 3. Acute on chronic hypoxic respiratory failure: Likely secondary to decompensated CHF. Continue supplemental O2 and Steroids. 4. Acute on chronic diastolic heart failure: Followed by Cards. 5. Elevated troponin. 6. DM type 2 with hyperglycemia. 7. Hypertension.
--- NOTE | 2019-06-26 14:40 | Progress Note ---
Assessment and Plan Cardiac status is improved. Stress test negative; patient attributes CP to persistent strong cough. Cardiac status is stable. Iexiscan MPI showed no evidence of ischemia with calculated EF 40%,these findings are more or less unchanged from 2016,continue medical therapy. Subjective Date of service: 06/26/19 Interval history: HAving cough,no chest pain. Objective Vital Signs Temp Pulse Resp BP Pulse Ox 06/26/19 11:36 98.9 F 73 22 159/93 95 06/26/19 10:00 81 06/26/19 07:26 98.5 F 80 22 173/99 98 06/26/19 07:21 20 06/26/19 04:50 99.4 F 85 22 154/87 94 06/26/19 03:44 89 06/25/19 23:52 98.7 F 85 20 135/75 92 06/25/19 21:20 107 H 144/72 06/25/19 20:28 99.5 F 84 18 144/72 96 06/25/19 19:53 85 06/25/19 16:37 98.0 F 82 20 149/80 94 - Physical Examination General: No Apparent Distress HEENT: Positive: PERRL Neck: Positive: neck supple, trachea midline Cardiac: Positive: Reg Rate and Rhythm Lungs: Positive: Decreased Breath Sounds Neuro: Positive: Grossly Intact Abdomen: Positive: Unremarkable Skin: Positive: Clear Musculoskeletal: Normal Range of Motion Extremities: Present: normal - Imaging and Cardiology Echo: report reviewed (05/2019: EF 58%, LVH, mildly dilated RA & RV) - EKG Sinus rhythms and dysrhythmias: sinus rhythm
--- NOTE | 2019-06-26 16:42 | Ultrasound Report ---
Renal ultrasound. HISTORY: Abnormal renal function. FINDINGS: Right kidney measures 10.4 cm. Cortex measures 1.4 cm. Left kidney measures 10.4 cm. Cortex measures 2 cm. Negative for mass or obstruction. Cortical echogenicity is mildly increased bilateral ly. A cyst at the upper pole of the left kidney measures 1.7 cm. The bladder contains moderate urine. IMPRESSION: 1. Mild increased cortical echogenicity compatible with chronic medical renal disease. 2. Benign-appearing left renal cyst. Signer Name: Joe Shea MD Signed: 06/26/2019 4:38 PM Workstation Name: [id number]
[2019-06-26 19:15] LABS: Bilirubin,Urine NEG (Negative); Blood,Urine NEG (Negative); Color,Urine Yellow (Yellow); Urobilinogen,Urine < 2.0 mg/dL (<2.0)
[2019-06-26 19:19] LABS: Creatinine,Urine 73.4 mg/dL (0.1-20.0); Protein,Urine >500 mg/dL (Negative)
[2019-06-26] MEDS: ACETAMINOPHEN 325 MG TAB PO PRN (20:01)
[2019-06-27] MEDS: hydrALAZINE 100 MG TAB PO SCH ×3 (06:31→22:07)
[2019-06-27] MEDS: methylPREDNISolone Sod Succinate 125 MG/2 ML INJ IV SCH ×3 (06:31→22:07)
[2019-06-27] MEDS: INSULIN LISPRO 100 UNIT/ML SUB-Q SCH ×4 (08:00→22:05)
[2019-06-27 08:24] LABS: Calcium 8.7 mg/dL (8.4-10.2)
[2019-06-27 09:26] LABS: Hematocrit 31.6 % (35.5-45.6); Hemoglobin 10.5 gm/dl (11.8-15.2); Mean Corpuscular HGB Conc 33 % (32-34); Mean Corpuscular Volume 81 fl (84-94); Platelet Count 307 K/mm3 (140-440); Red Cell Distribution Width 17.1 % (13.2-15.2)
[2019-06-27] MEDS: guaiFENesin/CODEINE 100-10MG ORAL LIQD 5 ML PO PRN ×2 (10:18→22:04)
[2019-06-27] MEDS: ISOSORBIDE DINITRATE 20 MG TAB PO SCH ×3 (10:20→22:07)
[2019-06-27] MEDS: FUROSEMIDE 40 MG TAB PO SCH (10:20)
[2019-06-27] MEDS: amLODIPine 10 MG TAB PO SCH (10:20)
[2019-06-27] MEDS: carvediloL 25 MG TAB PO SCH (10:21)
[2019-06-27] MEDS: HEPARIN 5,000 UNIT/1 ML VIAL SUB-Q SCH ×2 (10:21→22:03)
[2019-06-27 11:49] LABS: Band Neutrophils # (Manual) 0.1 K/mm3; Basophils % (Manual) 0 % (0.0-1.8); Eosinophils % (Manual) 0 % (0.0-4.3); Monocytes % (Manual) 0 % (0.0-7.3); Total Cells Counted 100
[2019-06-27 11:50] LABS: Anisocytosis 2+; Burr Cells Few; Hypochromasia Few; Ovalocytes 1+; Platelet Estimate Consistent w Auto
--- NOTE | 2019-06-27 11:53 | Progress Note ---
Assessment and Plan Patient alert, awake and sitting up in chair. Patient is still complaining of cough with productive sputum and hemoptysis. Patient is on 4 litres O2. O2 saturation running 96%. Patient afebrile with mild leukocytosis. Advised the patient to collect the sputum with hemoptysis in a cup. Patient is on levoquin. - Patient Problems (1) Acute and chronic respiratory failure ([id number]) Current Visit: Yes Status: Acute Qualifiers: Respiratory failure complication: hypoxia Qualified Code(s): J96.21 - Acute and chronic respiratory failure with hypoxia Plan to address problem: O2 4 litres via nasal canula. Albuterol/atrovent aerosol treatments q 6 hours. Continue I/V Levaquin. Starting on I/V solumedrol 125 mg I/V q 8 hours. Robitussin AC 10 ml po q 8 hours prn for cough. Continue S/C Heparin. Recommend GI Prophylaxis. (2) Acute on chronic diastolic HF (heart failure) Current Visit: Yes Status: Acute Plan to address problem: Management as per cardiology. (3) Elevated troponin Current Visit: Yes Status: Acute Plan to address problem: Management as per cardiology. (4) SHAYY (acute kidney injury) Current Visit: No Status: Acute Plan to address problem: Management as per Nephrology. (5) COPD (chronic obstructive pulmonary disease) Current Visit: No Status: Acute Plan to address problem: O2 4 litres via nasal canula. Albuterol/atrovent aerosol treatments q 6 hours. Continue I/V Levaquin. Starting on I/V solumedrol 125 mg I/V q 8 hours. Robitussin AC 10 ml po q 8 hours prn for cough. Continue S/C Heparin. Recommend GI Prophylaxis. Recommend PFTs as out patient. (6) Diabetes Current Visit: No Status: Acute Plan to address problem: Management as per primary care. (7) HTN (hypertension) Current Visit: No Status: Chronic Qualifiers: Hypertension type: essential hypertension Qualified Code(s): I10 - Essential (primary) hypertension Plan to address problem: Management as per primary care. (8) Pneumonia Current Visit: Yes Status: Acute Plan to address problem: Patient is on Levaquin. Subjective Date of service: 06/27/19 Interval history: Patient alert, awake and sitting up in chair. Patient is still complaining of cough with productive sputum and hemoptysis. Patient is on 4 litres O2. O2 saturation running 96%. Patient afebrile with mild leukocytosis. Advised the patient to collect the sputum with hemoptysis in a cup. Patient is on levoquin. Objective - Exam Narrative Exam: Physical exam General appearance: Present: moderate discomfort, alert and oriented 3, ple asant, well developed, adult male - EENT Eyes: Present: PERRL, EOM intact ENT: hearing intact, normal dentition - Neck Neck: Present: supple, normal ROM - Respiratory Respiratory effort: Non-labored, on supplemental oxygen, unprovoked cough elicited during exam Respiratory: crackles - Cardiovascular Heart rate: 80 (bpm) Rhythm: Sinus rhythm Heart Sounds: Present: S1 & S2. Absent: rub, click - Extremities Extremities: no ischemia, pulses intact, lateral lower extremity pitting edema - Peripheral Assessment Peripheral Pulses: within normal limits - Abdominal General gastrointestinal: soft, non-tender, normal bowel sounds - Integumentary Integumentary: Present: warm, dry - Musculoskeletal Musculoskeletal: Able to move all extremities -Neurological Neurological: CN II-XII intact - Psychiatric Psychiatric: Appropriate for situation ,cooperative Vital Signs - 12hr 06/27/19 06/27/19 06/27/19 00:20 06:03 08:22 Temperature 98.7 F 97.9 F 98.2 F Pulse Rate 84 79 85 Respiratory 22 18 18 Rate Respiratory Rate [Chest] Respiratory Rate [Right Leg ] Blood Pressure 156/79 168/95 159/90 O2 Sat by Pulse 95 97 88 Oximetry 06/27/19 06/27/19 06/27/19 10:00 10:20 10:21 Temperature Pulse Rate 82 80 80 Respiratory Rate Respiratory 20 Rate [Chest] Respiratory 20 Rate [Right Leg ] Blood Pressure 168/94 168/94 O2 Sat by Pulse Oximetry 06/27/19 11:35 Temperature 98.1 F Pulse Rate 90 Respiratory 18 Rate Respiratory Rate [Chest] Respiratory Rate [Right Leg ] Blood Pressure 164/88 O2 Sat by Pulse 96 Oximetry Constitutional: no acute distress, alert, other (Still has some cough) Eyes: non-icteric ENT: oropharynx moist Neck: supple, no lymphadenopathy Ascultation: Bilateral: diminished breath sounds, wheezes, rhonchi Cardiovascular: regular rate and rhythm Gastrointestinal: normoactive bowel sounds, soft, non-tender Integumentary: normal Extremities: no cyanosis, no edema Neurologic: normal mental status, non-focal exam, pupils equal and round, CN II- XII normal Psychiatric: mood appropriate CBC and BMP: 06/27/19 07:24 06/27/19 07:24 ABG, PT/INR, D-dimer: ABG POC ABG pH 7.456 (7.35-7.45) H 06/24/19 04:33 POC ABG pCO2 36.5 (35-45) 06/24/19 04:33 POC ABG pO2 81 (80-105) 06/24/19 04:33 POC ABG HCO3 25.8 (22-26 mml/L) 06/24/19 04:33 POC ABG Total CO2 27 (23-27mmol/L) 06/24/19 04:33 POC ABG O2 Sat 96 06/24/19 04:33 PT/INR, D-dimer PT 13.5 Sec. (12.2-14.9) 06/24/19 02:25 INR 1.02 (0.87-1.13) 06/24/19 02:25 Abnormal lab findings: Abnormal Labs 06/24/19 06/24/19 06/24/19 02:25 02:25 02:25 WBC Hgb 9.9 L Hct 29.6 L MCV 81 L MCH 27 L RDW 17.6 H Lymph % (Auto) 9.9 L Scurry % (Auto) 8.5 H Lymph # 0.9 L Seg Neutrophils % 78.1 H Seg Neuts % (Manual) Lymphocytes % (Manual) Seg Neutrophils # Man Lymphocytes # (Manual) POC ABG pH Sodium Chloride Carbon Dioxide BUN 26 H Creatinine 2.5 H Glucose 167 H POC Glucose Hemoglobin A1c Total Creatine Kinase Troponin T 0.051 H NT-Pro-B Natriuret Pep 1860 H Triglycerides 194 H HDL Cholesterol 29 L Urine Creatinine 06/24/19 06/24/19 06/24/19 02:25 04:33 05:53 WBC Hgb Hct MCV MCH RDW Lymph % (Auto) Scurry % (Auto) Lymph # Seg Neutrophils % Seg Neuts % (Manual) Lymphocytes % (Manual) Seg Neutrophils # Man Lymphocytes # (Manual) POC ABG pH 7.456 H Sodium Chloride Carbon Dioxide BUN Creatinine Glucose POC Glucose Hemoglobin A1c 8.6 H Total Creatine Kinase 773 H Troponin T 0.041 H NT-Pro-B Natriuret Pep Triglycerides HDL Cholesterol Urine Creatinine 06/24/19 06/24/19 06/24/19 09:36 13:16 16:24 WBC Hgb Hct MCV MCH RDW Lymph % (Auto) Scurry % (Auto) Lymph # Seg Neutrophils % Seg Neuts % (Manual) Lymphocytes % (Manual) Seg Neutrophils # Man Lymphocytes # (Manual) POC ABG pH Sodium Chloride Carbon Dioxide BUN Creatinine Glucose POC Glucose 151 H 144 H 140 H Hemoglobin A1c Total Creatine Kinase Troponin T NT-Pro-B Natriuret Pep Triglycerides HDL Cholesterol Urine Creatinine 06/24/19 06/25/19 06/25/19 20:52 05:13 05:13 WBC Hgb 10.9 L Hct 33.1 L MCV 81 L MCH 27 L RDW 17.2 H Lymph % (Auto) 6.6 L Scurry % (Auto) 7.6 H Lymph # 0.5 L Seg Neutrophils % 80.9 H Seg Neuts % (Manual) Lymphocytes % (Manual) Seg Neutrophils # Man Lymphocytes # (Manual) POC ABG pH Sodium Chloride Carbon Dioxide BUN 30 H Creatinine 2.6 H Glucose 125 H POC Glucose 162 H Hemoglobin A1c Total Creatine Kinase Troponin T NT-Pro-B Natriuret Pep Triglycerides HDL Cholesterol Urine Creatinine 06/25/19 06/25/19 06/26/19 12:05 22:36 07:35 WBC Hgb Hct MCV MCH RDW Lymph % (Auto) Scurry % (Auto) Lymph # Seg Neutrophils % Seg Neuts % (Manual) Lymphocytes % (Manual) Seg Neutrophils # Man Lymphocytes # (Manual) POC ABG pH Sodium Chloride Carbon Dioxide BUN Creatinine Glucose POC Glucose 238 H 158 H 420 H Hemoglobin A1c Total Creatine Kinase Troponin T NT-Pro-B Natriuret Pep Triglycerides HDL Cholesterol Urine Creatinine 06/26/19 06/26/19 06/26/19 11:54 15:54 19:00 WBC Hgb Hct MCV MCH RDW Lymph % (Auto) Scurry % (Auto) Lymph # Seg Neutrophils % Seg Neuts % (Manual) Lymphocytes % (Manual) Seg Neutrophils # Man Lymphocytes # (Manual) POC ABG pH Sodium Chloride Carbon Dioxide BUN Creatinine Glucose POC Glucose 336 H 263 H Hemoglobin A1c Total Creatine Kinase Troponin T NT-Pro-B Natriuret Pep Triglycerides HDL Cholesterol Urine Creatinine 73.4 H 06/26/19 06/27/19 06/27/19 21:59 07:24 07:24 WBC 11.3 H Hgb 10.5 L Hct 31.6 L MCV 81 L MCH 27 L RDW 17.1 H Lymph % (Auto) Scurry % (Auto) Lymph # Seg Neutrophils % Seg Neuts % (Manual) 98.0 H Lymphocytes % (Manual) 1.0 L Seg Neutrophils # Man 11.1 H Lymphocytes # (Manual) 0.1 L POC ABG pH Sodium 134 L Chloride 97.8 L Carbon Dioxide 20 L BUN 47 H Creatinine 2.7 H Glucose 401 H POC Glucose 404 H Hemoglobin A1c Total Creatine Kinase Troponin T NT-Pro-B Natriuret Pep Triglycerides HDL Cholesterol Urine Creatinine 06/27/19 06/27/19 08:16 11:42 WBC Hgb Hct MCV MCH RDW Lymph % (Auto) Scurry % (Auto) Lymph # Seg Neutrophils % Seg Neuts % (Manual) Lymphocytes % (Manual) Seg Neutrophils # Man Lymphocytes # (Manual) POC ABG pH Sodium Chloride Carbon Dioxide BUN Creatinine Glucose POC Glucose 330 H > 500 H Hemoglobin A1c Total Creatine Kinase Troponin T NT-Pro-B Natriuret Pep Triglycerides HDL Cholesterol Urine Creatinine
--- NOTE | 2019-06-27 13:18 | Progress Note ---
Assessment and Plan 1. Acute kidney injury vs worsening CKD: Likely progressive CKD. New baseline. Renal US negative for hydronephrosis. Monitor renal function. Renal prognosis is guarded. Avoid nephrotoxic agents. Meds dosage based on GFR. 2. FEN: Volume overload, continue Lasix. Monitor lytes. 3. Acute on chronic hypoxic respiratory failure: Likely secondary to decompensated CHF. Continue supplemental O2 and Steroids. 4. Acute on chronic diastolic heart failure: Followed by Cards. 5. Elevated troponin. 6. DM type 2 with hyperglycemia. 7. Hypertension. Examination: General appearance: well-developed, well-nourished, appears stated age, obese, not in distress hEENT: ATNC, ATILIO, mucous membranes moist, hearing intact, vision intact Neck: neck supple, trachea midline Respiratory: Rales Heart: regular, S1S2, no murmur Gastrointestinal: soft, normoactive bowel sounds, obese, not tender Integumentary: no rash, warm and dry Neurologic: no focal deficit, no asterixis, alert and oriented x3 Ext: Trace LE edema noted Subjective Date of service: 06/27/19 Interval history: Patient was seen and examined at the bedside. Objective - Vital Signs Vital signs: Vital Signs - 12hr 06/27/19 06/27/19 06/27/19 06:03 08:22 10:00 Temperature 97.9 F 98.2 F Pulse Rate 79 85 82 Respiratory 18 18 Rate Respiratory 20 Rate [Chest] Respiratory 20 Rate [Right Leg ] Blood Pressure 168/95 159/90 O2 Sat by Pulse 97 88 Oximetry 06/27/19 06/27/19 06/27/19 10:20 10:21 11:35 Temperature 98.1 F Pulse Rate 80 80 90 Respiratory 18 Rate Respiratory Rate [Chest] Respiratory Rate [Right Leg ] Blood Pressure 168/94 168/94 164/88 O2 Sat by Pulse 96 Oximetry - Lab 06/27/19 07:24 06/27/19 16:34 Most recent lab results Calcium 8.7 mg/dL (8.4-10.2) 06/27/19 07:24 Magnesium 2.30 mg/dL (1.7-2.3) 06/24/19 02:25 Urine Creatinine 73.4 mg/dL (0.1-20.0) H 06/26/19 19:00 Urine Sodium 21 mmol/L 06/26/19 19:00 Medications & Allergies - Medications Allergies/Adverse Reactions: Allergies No Known Allergies Allergy (Verified 02/13/15 18:50) Home Medications: Home Medications Medication Instructions Recorded Confirmed Last Taken Type ALBUTEROL Inhaler (OR & NICU) 2 puff IH QID PRN #1 inhalation 12/26/16 06/24/19 Unknown Rx [ProAir HFA Inhaler] amLODIPine 10 mg PO DAILY #30 tablet 05/07/17 06/24/19 Unknown Rx glipiZIDE [glipiZIDE XL] 10 mg PO QPM #30 tab.er.24 05/07/17 06/24/19 Unknown Rx hydrALAZINE [Apresoline TAB] 100 mg PO Q8HR #90 tablet 05/07/17 06/24/19 Unknown Rx AtorvaSTATin 40 mg PO DAILY 06/24/19 06/24/19 Unknown History Bumetanide 1 mg PO DAILY 06/24/19 06/24/19 Unknown History Coreg 25 mg PO DAILY 06/24/19 06/24/19 Unknown History Isosorbide Dinitrate 20 mg PO TID 06/24/19 06/24/19 Unknown History Januvia 100 mg PO DAILY 06/24/19 06/24/19 Unknown History Lasix TAB 40 mg PO DAILY 06/24/19 06/24/19 Unknown History Terazosin (Nf) 5 mg PO HS 06/24/19 06/24/19 Unknown History Active Medications: Generic Name Dose Route Start Last Admin Trade Name Freq PRN Reason Stop Dose Admin Acetaminophen 650 mg 06/24/19 05:22 06/26/19 20:01 Tylenol PO 650 mg Q4H PRN Administration Pain MILD(1-3)/Fever >100.5/STERN Albuterol 2.5 mg 06/24/19 05:27 06/25/19 16:10 Proventil IH 2.5 mg Q3HRT PRN Administration Shortness Of Breath Amlodipine Besylate 10 mg 06/24/19 10:00 06/27/19 10:20 Amlodipine PO 10 mg DAILY JONATHAN Administration Atorvastatin Calcium 40 mg 06/24/19 10:00 06/27/19 10:20 Lipitor PO 40 mg DAILY JONATHAN Administration Carvedilol 25 mg 06/24/19 10:00 06/27/19 10:21 Coreg PO 25 mg DAILY JONATHAN Administration Dextrose 50 ml 06/24/19 05:27 D50w (25gm) Syringe IV Q30MIN PRN Hypoglycemia Protocol Furosemide 40 mg 06/26/19 10:00 06/27/19 10:20 Lasix PO 40 mg QDAY JONATHAN Administration Glipizide 10 mg 06/24/19 17:00 06/26/19 16:07 Glucotrol Xl PO 10 mg QPMDIAB JONATHAN Administration Heparin Sodium (Porcine) 5,000 unit 06/24/19 10:00 06/27/19 10:21 Heparin SUB-Q 5,000 unit Q12HR JONATHAN Administration Hydralazine HCl 100 mg 06/24/19 06:00 06/27/19 06:31 Apresoline PO 100 mg Q8HR JONATHAN Administration Levofloxacin/Dextrose 750 mg in 150 mls @ 100 mls/hr 06/24/19 10:00 06/26/19 09:05 Levaquin 750mg/150ml IV 100 mls/hr Q48HR JONATHAN Administration Protocol Insulin Human Lispro 0 unit 06/24/19 07:30 06/27/19 12:48 Humalog SUB-Q 8 unit ACHS JONATHAN Administration Protocol Isosorbide Dinitrate 20 mg 06/24/19 08:00 06/27/19 10:20 Isordil Titradose PO 20 mg TID JONATHAN Administration Methylprednisolone Sodium Succinate 125 mg 06/25/19 22:00 06/27/19 06:31 Solu-Medrol IV 125 mg Q8HR JONATHAN Administration Nitroglycerin 0.4 mg 06/24/19 05:27 Nitrostat SL .Q5MIN PRN Chest Pain Ondansetron HCl 4 mg 06/24/19 05:22 Zofran IV Q8H PRN Nausea And Vomiting Pseudoephedrine/Acetam/Chlorphenir 10 ml 06/25/19 15:45 06/27/19 10:18 Robitussin Ac PO 10 ml Q8H PRN Administration Cough Sodium Chloride 10 ml 06/24/19 10:00 06/27/19 10:22 Sodium Chloride Flush Syringe 10 Ml IV 10 ml BID JONATHAN Administration Sodium Chloride 10 ml 06/24/19 05:22 06/27/19 06:34 Sodium Chloride Flush Syringe 10 Ml IV 10 ml PRN PRN Administration LINE FLUSH
--- NOTE | 2019-06-27 15:02 | Progress Note ---
Assessment and Plan Acute on chronic respiratory failuire Pulmonary following. COPD exacerbation Pulmonary following. Pneumonia Pulmonary following. Chest pain Chest pain appears pleuritic in nature. S/p lexiscan MPI stress test 06/25/2019 which was negative for ischemia, EF 40%. These findings are more or less unchanged from 2016. F/u echo. Minimally elevated troponin Currently nonspecific in setting of renal insufficiency. S/p lexiscan MPI stress test 06/25/2019 which was negative for ischemia, EF 40%. These findings are more or less unchanged from 2016. F/u echo. Acute on CKD Nephrology following HTN DM with hyperglycemia Management per primary. The patient has been seen in conjunction with Dr. Alford who agrees with the assessment and plan of care. Subjective Date of service: 06/27/19 Principal diagnosis: COPD exac; PNA; cp Interval history: pt resting in bed, still coughing and c/o pleuritic chest pain with coughing. in SR on tele. Objective Last Vital Signs Temp 98.1 F 06/27/19 11:35 Pulse 90 06/27/19 14:39 Resp 18 06/27/19 11:35 BP 160/86 06/27/19 14:39 Pulse Ox 96 06/27/19 11:35 - Physical Examination General: No Apparent Distress HEENT: Positive: PERRL Neck: Positive: neck supple, trachea midline Cardiac: Positive: Reg Rate and Rhythm, S1/S2 Lungs: Positive: Decreased Breath Sounds Neuro: Positive: Grossly Intact Abdomen: Positive: Unremarkable Skin: Positive: Clear Musculoskeletal: Normal Range of Motion Extremities: Present: normal - Labs and Meds CBC 06/27/19 Range/Units 07:24 WBC 11.3 H (4.5-11.0) K/mm3 RBC 3.90 (3.65-5.03) M/mm3 Hgb 10.5 L (11.8-15.2) gm/dl Hct 31.6 L (35.5-45.6) % Plt Count 307 (140-440) K/mm3 Comprehensive Metabolic Panel 06/27/19 Range/Units 07:24 Sodium 134 L (137-145) mmol/L Potassium 4.4 D (3.6-5.0) mmol/L Chloride 97.8 L (98-107) mmol/L Carbon Dioxide 20 L (22-30) mmol/L BUN 47 H (9-20) mg/dL Creatinine 2.7 H (0.8-1.5) mg/dL Glucose 401 H (75-100) mg/dL Calcium 8.7 (8.4-10.2) mg/dL - Imaging and Cardiology Echo: report reviewed (05/2019: EF 58%, LVH, mildly dilated RA & RV) - EKG Sinus rhythms and dysrhythmias: sinus rhythm
[2019-06-28] MEDS: methylPREDNISolone Sod Succinate 125 MG/2 ML INJ IV SCH ×3 (06:11→21:22)
[2019-06-28] MEDS: hydrALAZINE 100 MG TAB PO SCH ×3 (06:11→21:21)
[2019-06-28] MEDS: guaiFENesin/CODEINE 100-10MG ORAL LIQD 5 ML PO PRN ×2 (06:14→21:22)
[2019-06-28 07:14] LABS: Calcium 8.2 mg/dL (8.4-10.2)
[2019-06-28] MEDS: INSULIN LISPRO 100 UNIT/ML SUB-Q SCH ×4 (09:08→21:28)
--- NOTE | 2019-06-28 10:01 | Progress Note ---
Subjective Date of service: 06/28/19 Principal diagnosis: COPD exac; PNA; cp Objective Vital Signs - 12hr 06/27/19 06/28/19 23:39 04:21 Temperature 98.3 F 97.7 F Pulse Rate 76 65 Respiratory 18 22 Rate Blood Pressure 147/70 168/91 O2 Sat by Pulse 92 97 Oximetry Constitutional: no acute distress, alert, other (Still has some cough) Eyes: non-icteric ENT: oropharynx moist Neck: supple, no lymphadenopathy Ascultation: Bilateral: diminished breath sounds, wheezes, rhonchi Cardiovascular: regular rate and rhythm Gastrointestinal: normoactive bowel sounds, soft, non-tender Integumentary: normal Extremities: no cyanosis, no edema Neurologic: normal mental status, non-focal exam, pupils equal and round, CN II- XII normal Psychiatric: mood appropriate CBC and BMP: 06/27/19 07:24 06/28/19 05:22 ABG, PT/INR, D-dimer: ABG POC ABG pH 7.456 (7.35-7.45) H 06/24/19 04:33 POC ABG pCO2 36.5 (35-45) 06/24/19 04:33 POC ABG pO2 81 (80-105) 06/24/19 04:33 POC ABG HCO3 25.8 (22-26 mml/L) 06/24/19 04:33 POC ABG Total CO2 27 (23-27mmol/L) 06/24/19 04:33 POC ABG O2 Sat 96 06/24/19 04:33 PT/INR, D-dimer PT 13.5 Sec. (12.2-14.9) 06/24/19 02:25 INR 1.02 (0.87-1.13) 06/24/19 02:25 Abnormal lab findings: Abnormal Labs 06/24/19 06/24/19 06/24/19 02:25 02:25 02:25 WBC Hgb 9.9 L Hct 29.6 L MCV 81 L MCH 27 L RDW 17.6 H Lymph % (Auto) 9.9 L [place] % (Auto) 8.5 H Lymph # 0.9 L Seg Neutrophils % 78.1 H Seg Neuts % (Manual) Lymphocytes % (Manual) Seg Neutrophils # Man Lymphocytes # (Manual) POC ABG pH Sodium Chloride Carbon Dioxide BUN 26 H Creatinine 2.5 H Glucose 167 H POC Glucose Hemoglobin A1c Calcium Total Creatine Kinase Troponin T 0.051 H NT-Pro-B Natriuret Pep 1860 H Triglycerides 194 H HDL Cholesterol 29 L Urine Creatinine 06/24/19 06/24/19 06/24/19 02:25 04:33 05:53 WBC Hgb Hct MCV MCH RDW Lymph % (Auto) [place] % (Auto) Lymph # Seg Neutrophils % Seg Neuts % (Manual) Lymphocytes % (Manual) Seg Neutrophils # Man Lymphocytes # (Manual) POC ABG pH 7.456 H Sodium Chloride Carbon Dioxide BUN Creatinine Glucose POC Glucose Hemoglobin A1c 8.6 H Calcium Total Creatine Kinase 773 H Troponin T 0.041 H NT-Pro-B Natriuret Pep Triglycerides HDL Cholesterol Urine Creatinine 06/24/19 06/24/19 06/24/19 09:36 13:16 16:24 WBC Hgb Hct MCV MCH RDW Lymph % (Auto) [place] % (Auto) Lymph # Seg Neutrophils % Seg Neuts % (Manual) Lymphocytes % (Manual) Seg Neutrophils # Man Lymphocytes # (Manual) POC ABG pH Sodium Chloride Carbon Dioxide BUN Creatinine Glucose POC Glucose 151 H 144 H 140 H Hemoglobin A1c Calcium Total Creatine Kinase Troponin T NT-Pro-B Natriuret Pep Triglycerides HDL Cholesterol Urine Creatinine 06/24/19 06/25/19 06/25/19 20:52 05:13 05:13 WBC Hgb 10.9 L Hct 33.1 L MCV 81 L MCH 27 L RDW 17.2 H Lymph % (Auto) 6.6 L [place] % (Auto) 7.6 H Lymph # 0.5 L Seg Neutrophils % 80.9 H Seg Neuts % (Manual) Lymphocytes % (Manual) Seg Neutrophils # Man Lymphocytes # (Manual) POC ABG pH Sodium Chloride Carbon Dioxide BUN 30 H Creatinine 2.6 H Glucose 125 H POC Glucose 162 H Hemoglobin A1c Calcium Total Creatine Kinase Troponin T NT-Pro-B Natriuret Pep Triglycerides HDL Cholesterol Urine Creatinine 06/25/19 06/25/19 06/26/19 12:05 22:36 07:35 WBC Hgb Hct MCV MCH RDW Lymph % (Auto) [place] % (Auto) Lymph # Seg Neutrophils % Seg Neuts % (Manual) Lymphocytes % (Manual) Seg Neutrophils # Man Lymphocytes # (Manual) POC ABG pH Sodium Chloride Carbon Dioxide BUN Creatinine Glucose POC Glucose 238 H 158 H 420 H Hemoglobin A1c Calcium Total Creatine Kinase Troponin T NT-Pro-B Natriuret Pep Triglycerides HDL Cholesterol Urine Creatinine 06/26/19 06/26/19 06/26/19 11:54 15:54 19:00 WBC Hgb Hct MCV MCH RDW Lymph % (Auto) [place] % (Auto) Lymph # Seg Neutrophils % Seg Neuts % (Manual) Lymphocytes % (Manual) Seg Neutrophils # Man Lymphocytes # (Manual) POC ABG pH Sodium Chloride Carbon Dioxide BUN Creatinine Glucose POC Glucose 336 H 263 H Hemoglobin A1c Calcium Total Creatine Kinase Troponin T NT-Pro-B Natriuret Pep Triglycerides HDL Cholesterol Urine Creatinine 73.4 H 06/26/19 06/27/19 06/27/19 21:59 07:24 07:24 WBC 11.3 H Hgb 10.5 L Hct 31.6 L MCV 81 L MCH 27 L RDW 17.1 H Lymph % (Auto) [place] % (Auto) Lymph # Seg Neutrophils % Seg Neuts % (Manual) 98.0 H Lymphocytes % (Manual) 1.0 L Seg Neutrophils # Man 11.1 H Lymphocytes # (Manual) 0.1 L POC ABG pH Sodium 134 L Chloride 97.8 L Carbon Dioxide 20 L BUN 47 H Creatinine 2.7 H Glucose 401 H POC Glucose 404 H Hemoglobin A1c Calcium Total Creatine Kinase Troponin T NT-Pro-B Natriuret Pep Triglycerides HDL Cholesterol Urine Creatinine 06/27/19 06/27/19 06/27/19 08:16 11:42 16:34 WBC Hgb Hct MCV MCH RDW Lymph % (Auto) [place] % (Auto) Lymph # Seg Neutrophils % Seg Neuts % (Manual) Lymphocytes % (Manual) Seg Neutrophils # Man Lymphocytes # (Manual) POC ABG pH Sodium Chloride Carbon Dioxide BUN Creatinine Glucose 528 H* POC Glucose 330 H > 500 H Hemoglobin A1c Calcium Total Creatine Kinase Troponin T NT-Pro-B Natriuret Pep Triglycerides HDL Cholesterol Urine Creatinine 06/27/19 06/27/19 06/28/19 16:58 20:40 05:22 WBC Hgb Hct MCV MCH RDW Lymph % (Auto) [place] % (Auto) Lymph # Seg Neutrophils % Seg Neuts % (Manual) Lymphocytes % (Manual) Seg Neutrophils # Man Lymphocytes # (Manual) POC ABG pH Sodium 130 L Chloride 96.8 L Carbon Dioxide 19 L BUN 59 H Creatinine 3.0 H Glucose 572 H* POC Glucose 469 H 423 H Hemoglobin A1c Calcium 8.2 L Total Creatine Kinase Troponin T NT-Pro-B Natriuret Pep Triglycerides HDL Cholesterol Urine Creatinine 06/28/19 08:51 WBC Hgb Hct MCV MCH RDW Lymph % (Auto) [place] % (Auto) Lymph # Seg Neutrophils % Seg Neuts % (Manual) Lymphocytes % (Manual) Seg Neutrophils # Man Lymphocytes # (Manual) POC ABG pH Sodium Chloride Carbon Dioxide BUN Creatinine Glucose POC Glucose 464 H Hemoglobin A1c Calcium Total Creatine Kinase Troponin T NT-Pro-B Natriuret Pep Triglycerides HDL Cholesterol Urine Creatinine
[2019-06-28] MEDS: FUROSEMIDE 40 MG TAB PO SCH (10:08)
[2019-06-28] MEDS: carvediloL 25 MG TAB PO SCH (10:09)
[2019-06-28] MEDS: amLODIPine 10 MG TAB PO SCH (10:09)
[2019-06-28] MEDS: ISOSORBIDE DINITRATE 20 MG TAB PO SCH ×3 (10:09→21:21)
[2019-06-28] MEDS: HEPARIN 5,000 UNIT/1 ML VIAL SUB-Q SCH ×2 (10:10→21:22)
--- NOTE | 2019-06-28 12:26 | Progress Note ---
Assessment and Plan Assessment and plan: Acute on chronic diastolic heart failure. Continue GDMT per cardiology recommendations. EF 40%. Acute on chronic hypoxic respiratory failure. Acute on CKD. Likely progressive CKD. New baseline. Renal US negative for hydronephrosis. Monitor renal function. Renal prognosis is guarded. Elevated troponin. Stress test revealed normal LV perfusion and no ECG changes consistent with ischemia. However, global left ventricular systolic function was moderately reduced with EF of 40%. Diabetes mellitus type 2. Patient has exhibited medical noncompliance with ordering outside food and not adherent to consistent carbohydrate diet. Continue Accu-Cheks and sliding scale insulin Hypertension. Resume antihypertensive medications. Disposition. Anticipate discharge in a.m. History Interval history: No new issues overnight. Patient reports that his breathing is better. No reports of chest pain. Hospitalist Physical - Constitutional Vitals: Temp Pulse Resp BP Pulse Ox 97.7 F 64 20 168/90 97 06/28/19 04:21 06/28/19 10:09 06/28/19 10:00 06/28/19 10:09 06/28/19 10:00 General appearance: Present: no acute distress - EENT Eyes: Present: PERRL, EOM intact ENT: hearing intact, clear oral mucosa, dentition normal - Neck Neck: Present: supple, normal ROM - Respiratory Respiratory effort: normal Respiratory: bilateral: CTA - Cardiovascular Rhythm: regular Heart Sounds: Present: S1 & S2. Absent: gallop, rub - Extremities Extremities: no ischemia, No edema, Full ROM - Abdominal General gastrointestinal: soft, non-tender, non-distended, normal bowel sounds - Integumentary Integumentary: Present: clear, warm, dry - Neurologic Neurologic: CNII-XII intact, moves all extremities Results - Labs CBC & Chem 7: 06/27/19 07:24 06/28/19 05:22 Labs: Laboratory Last Values WBC 11.3 K/mm3 (4.5-11.0) H 06/27/19 07:24 RBC 3.90 M/mm3 (3.65-5.03) 06/27/19 07:24 Hgb 10.5 gm/dl (11.8-15.2) L 06/27/19 07:24 Hct 31.6 % (35.5-45.6) L 06/27/19 07:24 MCV 81 fl (84-94) L 06/27/19 07:24 MCH 27 pg (28-32) L 06/27/19 07:24 MCHC 33 % (32-34) 06/27/19 07:24 RDW 17.1 % (13.2-15.2) H 06/27/19 07:24 Plt Count 307 K/mm3 (140-440) 06/27/19 07:24 Lymph % (Auto) 6.6 % (13.4-35.0) L 06/25/19 05:13 [place] % (Auto) Flooring Installer 06/27/19 07:24 Eos % (Auto) 4.3 % (0.0-4.3) 06/25/19 05:13 Baso % (Auto) 0.6 % (0.0-1.8) 06/25/19 05:13 Lymph # 0.5 K/mm3 (1.2-5.4) L 06/25/19 05:13 [place] # 0.5 K/mm3 (0.0-0.8) 06/25/19 05:13 Eos # 0.3 K/mm3 (0.0-0.4) 06/25/19 05:13 Baso # 0.0 K/mm3 (0.0-0.1) 06/25/19 05:13 Add Manual Diff Complete 06/27/19 07:24 Total Counted 100 06/27/19 07:24 Seg Neutrophils % Flooring Installer 06/27/19 07:24 Seg Neuts % (Manual) 98.0 % (40.0-70.0) H 06/27/19 07:24 Band Neutrophils % 1.0 % 06/27/19 07:24 Lymphocytes % (Manual) 1.0 % (13.4-35.0) L 06/27/19 07:24 Reactive Lymphs % (Man) 0 % 06/27/19 07:24 Monocytes % (Manual) 0 % (0.0-7.3) 06/27/19 07:24 Eosinophils % (Manual) 0 % (0.0-4.3) 06/27/19 07:24 Basophils % (Manual) 0 % (0.0-1.8) 06/27/19 07:24 Metamyelocytes % 0 % 06/27/19 07:24 Myelocytes % 0 % 06/27/19 07:24 Promyelocytes % 0 % 06/27/19 07:24 Blast Cells % 0 % 06/27/19 07:24 Nucleated RBC % Not Reportable 06/27/19 07:24 Seg Neutrophils # Flooring Installer 06/27/19 07:24 Seg Neutrophils # Man 11.1 K/mm3 (1.8-7.7) H 06/27/19 07:24 Band Neutrophils # 0.1 K/mm3 06/27/19 07:24 Lymphocytes # (Manual) 0.1 K/mm3 (1.2-5.4) L 06/27/19 07:24 Abs React Lymphs (Man) 0.0 K/mm3 06/27/19 07:24 Monocytes # (Manual) 0.0 K/mm3 (0.0-0.8) 06/27/19 07:24 Eosinophils # (Manual) 0.0 K/mm3 (0.0-0.4) 06/27/19 07:24 Basophils # (Manual) 0.0 K/mm3 (0.0-0.1) 06/27/19 07:24 Metamyelocytes # 0.0 K/mm3 06/27/19 07:24 Myelocytes # 0.0 K/mm3 06/27/19 07:24 Promyelocytes # 0.0 K/mm3 06/27/19 07:24 Blast Cells # 0.0 K/mm3 06/27/19 07:24 WBC Morphology Not Reportable 06/27/19 07:24 Hypersegmented Neuts Not Reportable 06/27/19 07:24 Hyposegmented Neuts Not Reportable 06/27/19 07:24 Hypogranular Neuts Not Reportable 06/27/19 07:24 Smudge Cells Not Reportable 06/27/19 07:24 Toxic Granulation Not Reportable 06/27/19 07:24 Toxic Vacuolation Not Reportable 06/27/19 07:24 Dohle Bodies Not Reportable 06/27/19 07:24 Pelger-Huet Anomaly Not Reportable 06/27/19 07:24 Sandy Rods Not Reportable 06/27/19 07:24 Platelet Estimate Consistent w auto 06/27/19 07:24 Clumped Platelets Not Reportable 06/27/19 07:24 Plt Clumps, EDTA Not Reportable 06/27/19 07:24 Large Platelets Not Reportable 06/27/19 07:24 Giant Platelets Not Reportable 06/27/19 07:24 Platelet Satelliting Not Reportable 06/27/19 07:24 Plt Morphology Comment Not Reportable 06/27/19 07:24 RBC Morphology Not Reportable 06/27/19 07:24 Dimorphic RBCs Not Reportable 06/27/19 07:24 Polychromasia Not Reportable 06/27/19 07:24 Hypochromasia Few 06/27/19 07:24 Poikilocytosis Not Reportable 06/27/19 07:24 Anisocytosis 2+ 06/27/19 07:24 Microcytosis Not Reportable 06/27/19 07:24 Macrocytosis Not Reportable 06/27/19 07:24 Spherocytes Not Reportable 06/27/19 07:24 Pappenheimer Bodies Not Reportable 06/27/19 07:24 Sickle Cells Not Reportable 06/27/19 07:24 Target Cells Not Reportable 06/27/19 07:24 Tear Drop Cells Not Reportable 06/27/19 07:24 Ovalocytes 1+ 06/27/19 07:24 Helmet Cells Not Reportable 06/27/19 07:24 Guido-Ozone Bodies Not Reportable 06/27/19 07:24 [place] Rings Not Reportable 06/27/19 07:24 Alysha Cells Few 06/27/19 07:24 Bite Cells Not Reportable 06/27/19 07:24 Crenated Cell Not Reportable 06/27/19 07:24 Elliptocytes Few 06/27/19 07:24 Acanthocytes (Spur) Not Reportable 06/27/19 07:24 Rouleaux Not Reportable 06/27/19 07:24 Hemoglobin C Crystals Not Reportable 06/27/19 07:24 Schistocytes Not Reportable 06/27/19 07:24 Malaria parasites Not Reportable 06/27/19 07:24 Lane Bodies Not Reportable 06/27/19 07:24 Hem Pathologist Commnt No 06/27/19 07:24 PT 13.5 Sec. (12.2-14.9) 06/24/19 02:25 INR 1.02 (0.87-1.13) 06/24/19 02:25 APTT 34.7 Sec. (24.2-36.6) 06/24/19 02:25 POC ABG pH 7.456 (7.35-7.45) H 06/24/19 04:33 POC ABG pCO2 36.5 (35-45) 06/24/19 04:33 POC ABG pO2 81 (80-105) 06/24/19 04:33 POC ABG HCO3 25.8 (22-26 mml/L) 06/24/19 04:33 POC ABG Total CO2 27 (23-27mmol/L) 06/24/19 04:33 POC ABG O2 Sat 96 06/24/19 04:33 POC ABG Base Excess 2 ((-2) - (+3)mmol/L) 06/24/19 04:33 FiO2 36 % 06/24/19 04:33 Sodium 130 mmol/L (137-145) L 06/28/19 05:22 Potassium 4.3 mmol/L (3.6-5.0) 06/28/19 05:22 Chloride 96.8 mmol/L (98-107) L 06/28/19 05:22 Carbon Dioxide 19 mmol/L (22-30) L 06/28/19 05:22 Anion Gap 19 mmol/L 06/28/19 05:22 BUN 59 mg/dL (9-20) H 06/28/19 05:22 Creatinine 3.0 mg/dL (0.8-1.5) H 06/28/19 05:22 Estimated GFR 27 ml/min 06/28/19 05:22 BUN/Creatinine Ratio 20 % 06/28/19 05:22 Glucose 572 mg/dL (75-100) H* 06/28/19 05:22 POC Glucose 464 (70-105) H 06/28/19 08:51 Hemoglobin A1c 8.6 % (4-6) H 06/24/19 02:25 Lactic Acid 0.90 mmol/L (0.7-2.0) 06/24/19 02:25 Calcium 8.2 mg/dL (8.4-10.2) L 06/28/19 05:22 Magnesium 2.30 mg/dL (1.7-2.3) 06/24/19 02:25 Total Creatine Kinase 773 units/L (55-170) H 06/24/19 05:53 CK-MB (CK-2) 3.0 ng/mL (0.0-4.0) 06/24/19 05:53 CK-MB (CK-2) Rel Index 0.3 (0-4) 06/24/19 05:53 Troponin T 0.041 ng/mL (0.00-0.029) H 06/24/19 05:53 NT-Pro-B Natriuret Pep 1860 pg/mL (0-900) H 06/24/19 02:25 Triglycerides 194 mg/dL (2-149) H 06/24/19 02:25 Cholesterol 165 mg/dL (50-199) 06/24/19 02:25 LDL Cholesterol Direct 95 mg/dL (50-130) 06/24/19 02:25 HDL Cholesterol 29 mg/dL (40-59) L 06/24/19 02:25 Cholesterol/HDL Ratio 5.68 % 06/24/19 02:25 Urine Color Yellow (Yellow) 06/26/19 19:00 Urine Turbidity Clear (Clear) 06/26/19 19:00 Urine pH 6.0 (5.0-7.0) 06/26/19 19:00 Ur Specific [place] 1.012 (1.003-1.030) 06/26/19 19:00 Urine Protein >500 mg/dL (Negative) 06/26/19 19:00 Urine Glucose (UA) >=500 mg/dL (Negative) 06/26/19 19:00 Urine Ketones Neg mg/dL (Negative) 06/26/19 19:00 Urine Blood Neg (Negative) 06/26/19 19:00 Urine Nitrite Neg (Negative) 06/26/19 19:00 Urine Bilirubin Neg (Negative) 06/26/19 19:00 Urine Urobilinogen < 2.0 mg/dL (<2.0) 06/26/19 19:00 Ur Leukocyte Esterase Neg (Negative) 06/26/19 19:00 Urine WBC (Auto) 2.0 /HPF (0.0-6.0) 06/26/19 19:00 Urine RBC (Auto) 3.0 /HPF (0.0-6.0) 06/26/19 19:00 Urine Creatinine 73.4 mg/dL (0.1-20.0) H 06/26/19 19:00 Urine Sodium 21 mmol/L 06/26/19 19:00 Active Medications - Current Medications Current Medications: Generic Name Dose Route Start Last Admin Trade Name Freq PRN Reason Stop Dose Admin Acetaminophen 650 mg 06/24/19 05:22 06/26/19 20:01 Tylenol PO 650 mg Q4H PRN Administration Pain MILD(1-3)/Fever >100.5/STERN Albuterol 2.5 mg 06/24/19 05:27 06/25/19 16:10 Proventil IH 2.5 mg Q3HRT PRN Administration Shortness Of Breath Amlodipine Besylate 10 mg 06/24/19 10:00 06/28/19 10:09 Amlodipine PO 10 mg DAILY JONATHAN Administration Atorvastatin Calcium 40 mg 06/24/19 10:00 06/28/19 10:08 Lipitor PO 40 mg DAILY JONATHAN Administration Carvedilol 25 mg 06/24/19 10:00 06/28/19 10:09 Coreg PO 25 mg DAILY JONATHAN Administration Dextrose 50 ml 06/24/19 05:27 D50w (25gm) Syringe IV Q30MIN PRN Hypoglycemia Protocol Furosemide 40 mg 06/26/19 10:00 06/28/19 10:08 Lasix PO 40 mg QDAY JONATHAN Administration Glipizide 10 mg 06/24/19 17:00 06/27/19 17:17 Glucotrol Xl PO 10 mg QPMDIAB JONATHAN Administration Heparin Sodium (Porcine) 5,000 unit 06/24/19 10:00 06/28/19 10:10 Heparin SUB-Q 5,000 unit Q12HR JONATHAN Administration Hydralazine HCl 100 mg 06/24/19 06:00 06/28/19 06:11 Apresoline PO 100 mg Q8HR JONATHAN Administration Levofloxacin/Dextrose 750 mg in 150 mls @ 100 mls/hr 06/24/19 10:00 06/28/19 10:08 Levaquin 750mg/150ml IV 100 mls/hr Q48HR JONATHAN Administration Protocol Insulin Human Lispro 0 unit 06/24/19 07:30 06/28/19 09:08 Humalog SUB-Q 8 unit ACHS JONATHAN Administration Protocol Isosorbide Dinitrate 20 mg 06/24/19 08:00 06/28/19 10:09 Isordil Titradose PO 20 mg TID JONATHAN Administration Methylprednisolone Sodium Succinate 125 mg 06/25/19 22:00 06/28/19 06:11 Solu-Medrol IV 125 mg Q8HR JONATHAN Administration Nitroglycerin 0.4 mg 06/24/19 05:27 Nitrostat SL .Q5MIN PRN Chest Pain Ondansetron HCl 4 mg 06/24/19 05:22 Zofran IV Q8H PRN Nausea And Vomiting Pseudoephedrine/Acetam/Chlorphenir 10 ml 06/25/19 15:45 06/28/19 06:14 Robitussin Ac PO 10 ml Q8H PRN Administration Cough Sodium Chloride 10 ml 06/24/19 10:00 06/28/19 10:11 Sodium Chloride Flush Syringe 10 Ml IV 10 ml BID JONATHAN Administration Sodium Chloride 10 ml 06/24/19 05:22 06/27/19 06:34 Sodium Chloride Flush Syringe 10 Ml IV 10 ml PRN PRN Administration LINE FLUSH
--- NOTE | 2019-06-28 13:22 | XRay Report ---
CHEST 2 VIEWS INDICATION: pna. COMPARISON: 06/24/2019 FINDINGS: Support devices: None. Heart: Within normal limits. Pulmonary vasculature: Normal. Lungs/pleura: Patchy right lower lobe airspace disease with significant clearing since the last exam and complete or near complete clearing of left lower lobe airspace disease. No pleural effusion. No p neumothorax. Additional findings: None. IMPRESSION: 1. Interval improvement with mild residual right lower lobe lobe pneumonia and minimal left lower lob e pneumonia. Signer Name: Xavier Emerson MD Signed: 06/28/2019 1:18 PM Workstation Name: [id number]
--- NOTE | 2019-06-28 14:19 | Progress Note ---
Assessment and Plan Acute on chronic respiratory failure Pulmonary following. COPD exacerbation Pulmonary following. Pneumonia Pulmonary following. Chest pain Chest pain appears pleuritic in nature. S/p lexiscan MPI stress test 06/25/2019 which was negative for ischemia, EF 40%. These findings are more or less unchanged from 2016. Echo reviewed - EF 50-55%, mild LVH,LA severely dilated, RA mod to severely dilated. Minimally elevated troponin Currently nonspecific in setting of renal insufficiency. S/p lexiscan MPI stress test 06/25/2019 which was negative for ischemia, EF 40%. These findings are more or less unchanged from 2016. Echo reviewed - EF 50-55%, mild LVH,LA severely dilated, RA mod to severely dilated. Acute on CKD Nephrology following HTN DM with hyperglycemia Management per primary. Currently stable cardiac status. Nothing further to add from cardiac perspective at this time. Will sign off. Recommend pt follow up in our office with Dr. Cameron within 1-2 weeks of discharge ([phone]). The patient has been seen in conjunction with Dr. Alford who agrees with the assessment and plan of care. Subjective Date of service: 06/28/19 Principal diagnosis: COPD exac; PNA; cp Interval history: pt resting in bed, still coughing and c/o pleuritic chest pain with coughing. in SR on tele. Objective Last Vital Signs Temp 97.7 F 06/28/19 04:21 Pulse 66 06/28/19 13:40 Resp 20 06/28/19 10:00 BP 150/70 06/28/19 13:40 Pulse Ox 97 06/28/19 10:00 - Physical Examination General: No Apparent Distress HEENT: Positive: PERRL Neck: Positive: neck supple, trachea midline Cardiac: Positive: Reg Rate and Rhythm, S1/S2 Lungs: Positive: Decreased Breath Sounds Neuro: Positive: Grossly Intact Abdomen: Positive: Unremarkable Skin: Positive: Clear Musculoskeletal: Normal Range of Motion Extremities: Present: normal - Labs and Meds Comprehensive Metabolic Panel 06/27/19 06/28/19 Range/Units 16:34 05:22 Sodium 130 L (137-145) mmol/L Potassium 4.3 (3.6-5.0) mmol/L Chloride 96.8 L (98-107) mmol/L Carbon Dioxide 19 L (22-30) mmol/L BUN 59 H (9-20) mg/dL Creatinine 3.0 H (0.8-1.5) mg/dL Glucose 528 H* 572 H* (75-100) mg/dL Calcium 8.2 L (8.4-10.2) mg/dL - Imaging and Cardiology Echo: report reviewed (05/2019: EF 58%, LVH, mildly dilated RA & RV) - EKG Sinus rhythms and dysrhythmias: sinus rhythm
[2019-06-28] MEDS: ACETAMINOPHEN 325 MG TAB PO PRN (21:21)
--- NOTE | 2019-06-28 23:22 | Progress Note ---
Assessment and Plan 1. Acute kidney injury vs worsening CKD: Likely progressive CKD. New baseline. Renal US negative for hydronephrosis. Increase in the creatinine level today associated with high blood sugar. Monitor renal function. Renal prognosis is guarded. Avoid nephrotoxic agents. Meds dosage based on GFR. 2. FEN: Volume overload, continue Lasix. Monitor lytes. 3. Acute on chronic hypoxic respiratory failure: Likely secondary to decompensated CHF. Continue supplemental O2 and Steroids. 4. Acute on chronic diastolic heart failure: Followed by Cards. 5. Elevated troponin. 6. DM type 2 with hyperglycemia. 7. Hypertension. Examination: General appearance: well-developed, well-nourished, appears stated age, obese, not in distress hEENT: ATNC, ATILIO, mucous membranes moist, hearing intact, vision intact Neck: neck supple, trachea midline Respiratory: Rales Heart: regular, S1S2, no murmur Gastrointestinal: soft, normoactive bowel sounds, obese, not tender Integumentary: no rash, warm and dry Neurologic: no focal deficit, no asterixis, alert and oriented x3 Ext: Trace LE edema noted Subjective Date of service: 06/28/19 Principal diagnosis: COPD exac; PNA; cp Interval history: Patient was seen and examined at the bedside. Still has some dry cough. Objective - Vital Signs Vital signs: Vital Signs - 12hr 06/28/19 06/28/19 06/28/19 13:40 17:05 19:52 Temperature 98.1 F 97.4 F L Pulse Rate 66 81 79 Respiratory 18 16 Rate Blood Pressure 150/70 150/81 181/101 O2 Sat by Pulse 96 93 Oximetry - Lab 06/27/19 07:24 06/28/19 05:22 Most recent lab results Calcium 8.2 mg/dL (8.4-10.2) L 06/28/19 05:22 Magnesium 2.30 mg/dL (1.7-2.3) 06/24/19 02:25 Urine Creatinine 73.4 mg/dL (0.1-20.0) H 06/26/19 19:00 Urine Sodium 21 mmol/L 06/26/19 19:00 Medications & Allergies - Medications Allergies/Adverse Reactions: Allergies No Known Allergies Allergy (Verified 02/13/15 18:50) Home Medications: Home Medications Medication Instructions Recorded Confirmed Last Taken Type ALBUTEROL Inhaler (OR & NICU) 2 puff IH QID PRN #1 inhalation 12/26/16 06/24/19 Unknown Rx [ProAir HFA Inhaler] amLODIPine 10 mg PO DAILY #30 tablet 05/07/17 06/24/19 Unknown Rx glipiZIDE [glipiZIDE XL] 10 mg PO QPM #30 tab.er.24 05/07/17 06/24/19 Unknown Rx hydrALAZINE [Apresoline TAB] 100 mg PO Q8HR #90 tablet 05/07/17 06/24/19 Unknown Rx AtorvaSTATin 40 mg PO DAILY 06/24/19 06/24/19 Unknown History Bumetanide 1 mg PO DAILY 06/24/19 06/24/19 Unknown History Coreg 25 mg PO DAILY 06/24/19 06/24/19 Unknown History Isosorbide Dinitrate 20 mg PO TID 06/24/19 06/24/19 Unknown History Januvia 100 mg PO DAILY 06/24/19 06/24/19 Unknown History Lasix TAB 40 mg PO DAILY 06/24/19 06/24/19 Unknown History Terazosin (Nf) 5 mg PO HS 06/24/19 06/24/19 Unknown History Active Medications: Generic Name Dose Route Start Last Admin Trade Name Freq PRN Reason Stop Dose Admin Acetaminophen 650 mg 06/24/19 05:22 06/28/19 21:21 Tylenol PO 650 mg Q4H PRN Administration Pain MILD(1-3)/Fever >100.5/STERN Albuterol 2.5 mg 06/24/19 05:27 06/25/19 16:10 Proventil IH 2.5 mg Q3HRT PRN Administration Shortness Of Breath Amlodipine Besylate 10 mg 06/24/19 10:00 06/28/19 10:09 Amlodipine PO 10 mg DAILY JONATHAN Administration Atorvastatin Calcium 40 mg 06/24/19 10:00 06/28/19 10:08 Lipitor PO 40 mg DAILY JONATHAN Administration Carvedilol 25 mg 06/24/19 10:00 06/28/19 10:09 Coreg PO 25 mg DAILY JONATHAN Administration Dextrose 50 ml 06/24/19 05:27 D50w (25gm) Syringe IV Q30MIN PRN Hypoglycemia Protocol Furosemide 40 mg 06/26/19 10:00 06/28/19 10:08 Lasix PO 40 mg QDAY JONATHAN Administration Glipizide 10 mg 06/24/19 17:00 06/28/19 17:24 Glucotrol Xl PO 10 mg QPMDIAB JONATHAN Administration Heparin Sodium (Porcine) 5,000 unit 06/24/19 10:00 06/28/19 21:22 Heparin SUB-Q 5,000 unit Q12HR JONATHAN Administration Hydralazine HCl 100 mg 06/24/19 06:00 06/28/19 21:21 Apresoline PO 100 mg Q8HR JONATHAN Administration Levofloxacin/Dextrose 750 mg in 150 mls @ 100 mls/hr 06/24/19 10:00 06/28/19 10:08 Levaquin 750mg/150ml IV 100 mls/hr Q48HR JONATHAN Administration Protocol Insulin Human Lispro 0 unit 06/24/19 07:30 06/28/19 21:28 Humalog SUB-Q 8 unit ACHS JONATHAN Administration Protocol Isosorbide Dinitrate 20 mg 06/24/19 08:00 06/28/19 21:21 Isordil Titradose PO 20 mg TID JONATHAN Administration Methylprednisolone Sodium Succinate 125 mg 06/25/19 22:00 06/28/19 21:22 Solu-Medrol IV 125 mg Q8HR JONATHAN Administration Nitroglycerin 0.4 mg 06/24/19 05:27 Nitrostat SL .Q5MIN PRN Chest Pain Ondansetron HCl 4 mg 06/24/19 05:22 Zofran IV Q8H PRN Nausea And Vomiting Pseudoephedrine/Acetam/Chlorphenir 10 ml 06/25/19 15:45 06/28/19 21:22 Robitussin Ac PO 10 ml Q8H PRN Administration Cough Sodium Chloride 10 ml 06/24/19 10:00 06/28/19 21:27 Sodium Chloride Flush Syringe 10 Ml IV 10 ml BID JONATHAN Administration Sodium Chloride 10 ml 06/24/19 05:22 06/27/19 06:34 Sodium Chloride Flush Syringe 10 Ml IV 10 ml PRN PRN Administration LINE FLUSH
[2019-06-29] MEDS: methylPREDNISolone Sod Succinate 125 MG/2 ML INJ IV SCH (05:16)
[2019-06-29] MEDS: guaiFENesin/CODEINE 100-10MG ORAL LIQD 5 ML PO PRN (05:16)
[2019-06-29] MEDS: hydrALAZINE 100 MG TAB PO SCH (05:16)
--- NOTE | 2019-06-29 07:41 | XRay Report ---
CHEST 1 VIEW INDICATION: dyspnea COMPARISON: One day prior. FINDINGS: Support devices: None Heart: Mildly enlarged but stable Lungs/Pleura: No acute pulmonary or pleural findings. IMPRESSION: 1. No significant change. Signer Name: Michele Razo MD Signed: 06/29/2019 7:37 AM Workstation Name: [id number]
[2019-06-29 08:11] VITALS: BP 172/104
--- NOTE | 2019-06-29 08:39 | Discharge Summary ---
Providers - Providers Date of Admission: 06/24/19 04:47 Date of discharge: 06/29/19 Attending physician: MOE RODRIGUEZ 06/24/19 05:47 Consult to Physician [CONS] Routine Comment: Consulting Provider: JOHN ASHTON Physician Instructions: Reason For Exam: AE CHF 06/24/19 22:57 Consult to Physician [CONS] Routine Comment: Consulting Provider: JANA NIXON Physician Instructions: Reason For Exam: SOB, hx HF 06/26/19 11:10 Consult to Physician [CONS] Routine Comment: Consulting Provider: HEIDI CABELLO Physician Instructions: Reason For Exam: acute on ckd [facility] Condition: Stable Hospital course: Mr. Carter is a 54 y/o male with a medical history significant for chronic HFpEF, CKD, diabetes hypertension and chronic respiratory failure on home oxygen who presented to [facility] with worsening chest pain and shortness of breath. The patient was admitted with diagnosis of acute on chronic hypoxic respiratory failure, right lower lobe pneumonia, acute on chronic diastolic heart failure, acute on CKD, elevated troponin and chest pain. The patient was seen by cardiology, pulmonology and nephrology. Cardiology felt that the chest pain was pleuritic in nature. Patient had Lexiscan MPI stress test on 06/25 which was negative for ischemia and revealed an EF of 40%. Echocardiogram was also completed which revealed EF of 50 to 55%, mild LVH,LA severely dilated, RA mod to severely dilated. Also, cardiology felt that the elevated troponin was nonspecific in the setting of renal insufficiency. With regards to the respiratory failure and pneumonia, the patient was treated with breathing treatments, IV steroids and IV antibiotics of Levaquin. Patient had a follow-up chest x-ray which showed improvement of the right lower lobe pneumonia. Other complications during hospital stay included uncontrolled diabetes mellitus type 2. Etiology was secondary to medical noncompliance with ordering outside food and not adherent to consistent carbohydrate diet. Nephrology evaluated the patient for the CKD and felt that it was likely progressive. Patient's new baseline creatinine likely 2.5-3. Renal ultrasound was negative for hydronephrosis. Patient was felt to have received maximal hospital benefit and will be discharged home. Dedicated discharge time 35 minutes. Disposition: TO HOME OR SELFCARE Time spent for discharge: 35 - Discharge Diagnoses (1) RLL pneumonia Status: Acute (2) Acute and chronic respiratory failure ([id number]) Status: Acute Qualifiers: Respiratory failure complication: hypoxia Qualified Code(s): J96.21 - Acute and chronic respiratory failure with hypoxia (3) Acute on chronic diastolic HF (heart failure) Status: Acute (4) CHF exacerbation Status: Acute Qualifiers: Heart failure type: unspecified Qualified Code(s): I50.9 - Heart failure, unspecified (5) Elevated troponin Status: Acute (6) Pneumonia Status: Acute (7) CKD (chronic kidney disease) Status: Chronic (8) Hyperglycemia due to type 2 diabetes mellitus Status: Acute Qualifiers: Diabetes mellitus correction insulin use: with moth exterminator use Qualified Code(s): E11.65 - Type 2 diabetes mellitus with hyperglycemia; Z79.4 - vermin exterminator (current) use of insulin; Z79.4 - vermin exterminator (current) use of insulin; Z79.4 - vermin exterminator (current) use of insulin; Z79.4 - [facility] (current) use of insulin (9) Noncompliance with medication regimen Status: Acute (10) Hyperlipidemia Status: Chronic (11) Noncompliance Status: Chronic Core Measure Documentation - Palliative Care Palliative Care/ Comfort Measures: Not Applicable - Core Measures Any of the following diagnoses?: none Exam - Constitutional Vitals: Temp Pulse Resp BP Pulse Ox 98.6 F 74 18 172/104 93 06/29/19 08:10 06/29/19 08:10 06/29/19 08:10 06/29/19 08:10 06/29/19 08:10 General appearance: Present: no acute distress, well-nourished - EENT Eyes: Present: PERRL ENT: hearing intact, clear oral mucosa - Neck Neck: Present: supple, normal ROM - Respiratory Respiratory effort: normal Respiratory: bilateral: CTA - Cardiovascular Heart Sounds: Present: S1 & S2. Absent: rub, click - Extremities Extremities: pulses symmetrical, No edema Peripheral Pulses: within normal limits - Abdominal General gastrointestinal: Present: soft, non-tender, non-distended, normal bowel sounds Male genitourinary: Present: normal - Integumentary Integumentary: Present: clear, warm, dry - Musculoskeletal Musculoskeletal: gait normal, strength equal bilaterally - Psychiatric Psychiatric: appropriate mood/affect, intact judgment & insight - Neurologic Neurologic: CNII-XII intact, moves all extremities Plan Activity: advance as tolerated Weight Bearing Status: Weight Bear as Tolerated Diet: diabetic [facility] [Primary Care Provider] - 3-5 Days ROSETTE SWANSON MD [Staff Physician] - 7 Days LEXA CALLOWAY MD [Staff Physician] - 7 Days HEIDI CABELLO MD [Staff Physician] - 7 Days Prescriptions: amLODIPine 10 mg PO DAILY #30 tablet hydrALAZINE [Apresoline TAB] 100 mg PO Q8HR #90 tablet AtorvaSTATin 40 mg PO DAILY #30 Coreg 25 mg PO DAILY #30 Isosorbide Dinitrate 20 mg PO TID #90 tab Furosemide [Lasix TAB] 40 mg PO QDAY #30 tablet levoFLOXacin [Levaquin] 750 mg PO QDAY #10 tablet methylPREDNISolone [Medrol 4MG DOSEPAK (21 tabs)] 4 mg PO QAM #1 tab.ds.pk ALBUTEROL Inhaler (OR & NICU) [ProAir HFA Inhaler] 2 puff IH QID PRN #1 inhalation PRN Reason: Shortness Of Breath Benzonatate [Tessalon Perles] 100 mg PO Q8HR #30 capsule
[2019-06-29 08:52] LABS: Calcium 8.1 mg/dL (8.4-10.2)
[2019-06-29] MEDS: amLODIPine 10 MG TAB PO SCH (10:14)
[2019-06-29] MEDS: FUROSEMIDE 40 MG TAB PO SCH (10:15)
[2019-06-29] MEDS: carvediloL 25 MG TAB PO SCH (10:16)
[2019-06-29] MEDS: ISOSORBIDE DINITRATE 20 MG TAB PO SCH (10:22)
[2019-06-29] MEDS: INSULIN LISPRO 100 UNIT/ML SUB-Q SCH ×2 (10:41→10:42)
--- NOTE | 2019-06-29 11:51 | Progress Note ---
Assessment and Plan Patient alert, awake and sitting up in chair. Patient is still complaining of cough with productive sputum and hemoptysis. Patient is on 4 litres O2. O2 saturation running 96%. Patient afebrile with mild leukocytosis. Advised the patient to collect the sputum with hemoptysis in a cup. Patient is on levoquin. - Patient Problems (1) Acute and chronic respiratory failure ([id number]) Current Visit: Yes Status: Acute Qualifiers: Respiratory failure complication: hypoxia Qualified Code(s): J96.21 - Acute and chronic respiratory failure with hypoxia Plan to address problem: O2 4 litres via nasal canula. Albuterol/atrovent aerosol treatments q 6 hours. Continue I/V Levaquin. Starting on I/V solumedrol 125 mg I/V q 8 hours. Robitussin AC 10 ml po q 8 hours prn for cough. Continue S/C Heparin. Recommend GI Prophylaxis. (2) Acute on chronic diastolic HF (heart failure) Current Visit: Yes Status: Acute Plan to address problem: Management as per cardiology. (3) Elevated troponin Current Visit: Yes Status: Acute Plan to address problem: Management as per cardiology. (4) SHAYY (acute kidney injury) Current Visit: No Status: Acute Plan to address problem: Management as per Nephrology. (5) COPD (chronic obstructive pulmonary disease) Current Visit: No Status: Acute Plan to address problem: O2 4 litres via nasal canula. Albuterol/atrovent aerosol treatments q 6 hours. Continue I/V Levaquin. Starting on I/V solumedrol 125 mg I/V q 8 hours. Robitussin AC 10 ml po q 8 hours prn for cough. Continue S/C Heparin. Recommend GI Prophylaxis. Recommend PFTs as out patient. (6) Diabetes Current Visit: No Status: Acute Plan to address problem: Management as per primary care. (7) HTN (hypertension) Current Visit: No Status: Chronic Qualifiers: Hypertension type: essential hypertension Qualified Code(s): I10 - Essential (primary) hypertension Plan to address problem: Management as per primary care. (8) Pneumonia Current Visit: Yes Status: Acute Plan to address problem: Patient is on Levaquin. Subjective Date of service: 06/29/19 Principal diagnosis: COPD exac; PNA; cp Interval history: Patient alert, awake and sitting up in chair. Patient is still complaining of cough with productive sputum and hemoptysis. Patient is on 4 litres O2. O2 saturation running 96%. Patient afebrile with mild leukocytosis. Advised the patient to collect the sputum with hemoptysis in a cup. Patient is on levoquin. Objective Vital Signs - 12hr 06/29/19 06/29/19 06/29/19 04:59 08:10 08:28 Temperature 98.8 F 98.6 F Pulse Rate 70 74 74 Respiratory 18 18 Rate Blood Pressure 166/90 172/104 O2 Sat by Pulse 94 93 Oximetry 06/29/19 06/29/19 06/29/19 10:14 10:16 10:22 Temperature Pulse Rate 80 80 80 Respiratory Rate Blood Pressure 172/104 172/104 172/104 O2 Sat by Pulse Oximetry Constitutional: no acute distress, alert, other (Still has some cough) Eyes: non-icteric ENT: oropharynx moist Neck: supple, no lymphadenopathy Ascultation: Bilateral: diminished breath sounds, wheezes, rhonchi Cardiovascular: regular rate and rhythm Gastrointestinal: normoactive bowel sounds, soft, non-tender Integumentary: normal Extremities: no cyanosis, no edema Neurologic: normal mental status, non-focal exam, pupils equal and round, CN II- XII normal Psychiatric: mood appropriate CBC and BMP: 06/27/19 07:24 06/29/19 07:41 ABG, PT/INR, D-dimer: ABG POC ABG pH 7.456 (7.35-7.45) H 06/24/19 04:33 POC ABG pCO2 36.5 (35-45) 06/24/19 04:33 POC ABG pO2 81 (80-105) 06/24/19 04:33 POC ABG HCO3 25.8 (22-26 mml/L) 06/24/19 04:33 POC ABG Total CO2 27 (23-27mmol/L) 06/24/19 04:33 POC ABG O2 Sat 96 06/24/19 04:33 PT/INR, D-dimer PT 13.5 Sec. (12.2-14.9) 06/24/19 02:25 INR 1.02 (0.87-1.13) 06/24/19 02:25 Abnormal lab findings: Abnormal Labs 06/24/19 06/24/19 06/24/19 02:25 02:25 02:25 WBC Hgb 9.9 L Hct 29.6 L MCV 81 L MCH 27 L RDW 17.6 H Lymph % (Auto) 9.9 L [place] % (Auto) 8.5 H Lymph # 0.9 L Seg Neutrophils % 78.1 H Seg Neuts % (Manual) Lymphocytes % (Manual) Seg Neutrophils # Man Lymphocytes # (Manual) POC ABG pH Sodium Chloride Carbon Dioxide BUN 26 H Creatinine 2.5 H Glucose 167 H POC Glucose Hemoglobin A1c Calcium Total Creatine Kinase Troponin T 0.051 H NT-Pro-B Natriuret Pep 1860 H Triglycerides 194 H HDL Cholesterol 29 L Urine Creatinine 06/24/19 06/24/19 06/24/19 02:25 04:33 05:53 WBC Hgb Hct MCV MCH RDW Lymph % (Auto) [place] % (Auto) Lymph # Seg Neutrophils % Seg Neuts % (Manual) Lymphocytes % (Manual) Seg Neutrophils # Man Lymphocytes # (Manual) POC ABG pH 7.456 H Sodium Chloride Carbon Dioxide BUN Creatinine Glucose POC Glucose Hemoglobin A1c 8.6 H Calcium Total Creatine Kinase 773 H Troponin T 0.041 H NT-Pro-B Natriuret Pep Triglycerides HDL Cholesterol Urine Creatinine 06/24/19 06/24/19 06/24/19 09:36 13:16 16:24 WBC Hgb Hct MCV MCH RDW Lymph % (Auto) [place] % (Auto) Lymph # Seg Neutrophils % Seg Neuts % (Manual) Lymphocytes % (Manual) Seg Neutrophils # Man Lymphocytes # (Manual) POC ABG pH Sodium Chloride Carbon Dioxide BUN Creatinine Glucose POC Glucose 151 H 144 H 140 H Hemoglobin A1c Calcium Total Creatine Kinase Troponin T NT-Pro-B Natriuret Pep Triglycerides HDL Cholesterol Urine Creatinine 06/24/19 06/25/19 06/25/19 20:52 05:13 05:13 WBC Hgb 10.9 L Hct 33.1 L MCV 81 L MCH 27 L RDW 17.2 H Lymph % (Auto) 6.6 L [place] % (Auto) 7.6 H Lymph # 0.5 L Seg Neutrophils % 80.9 H Seg Neuts % (Manual) Lymphocytes % (Manual) Seg Neutrophils # Man Lymphocytes # (Manual) POC ABG pH Sodium Chloride Carbon Dioxide BUN 30 H Creatinine 2.6 H Glucose 125 H POC Glucose 162 H Hemoglobin A1c Calcium Total Creatine Kinase Troponin T NT-Pro-B Natriuret Pep Triglycerides HDL Cholesterol Urine Creatinine 06/25/19 06/25/19 06/26/19 12:05 22:36 07:35 WBC Hgb Hct MCV MCH RDW Lymph % (Auto) [place] % (Auto) Lymph # Seg Neutrophils % Seg Neuts % (Manual) Lymphocytes % (Manual) Seg Neutrophils # Man Lymphocytes # (Manual) POC ABG pH Sodium Chloride Carbon Dioxide BUN Creatinine Glucose POC Glucose 238 H 158 H 420 H Hemoglobin A1c Calcium Total Creatine Kinase Troponin T NT-Pro-B Natriuret Pep Triglycerides HDL Cholesterol Urine Creatinine 06/26/19 06/26/19 06/26/19 11:54 15:54 19:00 WBC Hgb Hct MCV MCH RDW Lymph % (Auto) [place] % (Auto) Lymph # Seg Neutrophils % Seg Neuts % (Manual) Lymphocytes % (Manual) Seg Neutrophils # Man Lymphocytes # (Manual) POC ABG pH Sodium Chloride Carbon Dioxide BUN Creatinine Glucose POC Glucose 336 H 263 H Hemoglobin A1c Calcium Total Creatine Kinase Troponin T NT-Pro-B Natriuret Pep Triglycerides HDL Cholesterol Urine Creatinine 73.4 H 06/26/19 06/27/19 06/27/19 21:59 07:24 07:24 WBC 11.3 H Hgb 10.5 L Hct 31.6 L MCV 81 L MCH 27 L RDW 17.1 H Lymph % (Auto) [place] % (Auto) Lymph # Seg Neutrophils % Seg Neuts % (Manual) 98.0 H Lymphocytes % (Manual) 1.0 L Seg Neutrophils # Man 11.1 H Lymphocytes # (Manual) 0.1 L POC ABG pH Sodium 134 L Chloride 97.8 L Carbon Dioxide 20 L BUN 47 H Creatinine 2.7 H Glucose 401 H POC Glucose 404 H Hemoglobin A1c Calcium Total Creatine Kinase Troponin T NT-Pro-B Natriuret Pep Triglycerides HDL Cholesterol Urine Creatinine 06/27/19 06/27/19 06/27/19 08:16 11:42 16:34 WBC Hgb Hct MCV MCH RDW Lymph % (Auto) [place] % (Auto) Lymph # Seg Neutrophils % Seg Neuts % (Manual) Lymphocytes % (Manual) Seg Neutrophils # Man Lymphocytes # (Manual) POC ABG pH Sodium Chloride Carbon Dioxide BUN Creatinine Glucose 528 H* POC Glucose 330 H > 500 H Hemoglobin A1c Calcium Total Creatine Kinase Troponin T NT-Pro-B Natriuret Pep Triglycerides HDL Cholesterol Urine Creatinine 06/27/19 06/27/19 06/28/19 16:58 20:40 05:22 WBC Hgb Hct MCV MCH RDW Lymph % (Auto) [place] % (Auto) Lymph # Seg Neutrophils % Seg Neuts % (Manual) Lymphocytes % (Manual) Seg Neutrophils # Man Lymphocytes # (Manual) POC ABG pH Sodium 130 L Chloride 96.8 L Carbon Dioxide 19 L BUN 59 H Creatinine 3.0 H Glucose 572 H* POC Glucose 469 H 423 H Hemoglobin A1c Calcium 8.2 L Total Creatine Kinase Troponin T NT-Pro-B Natriuret Pep Triglycerides HDL Cholesterol Urine Creatinine 06/28/19 06/28/19 06/28/19 08:51 13:03 17:08 WBC Hgb Hct MCV MCH RDW Lymph % (Auto) [place] % (Auto) Lymph # Seg Neutrophils % Seg Neuts % (Manual) Lymphocytes % (Manual) Seg Neutrophils # Man Lymphocytes # (Manual) POC ABG pH Sodium Chloride Carbon Dioxide BUN Creatinine Glucose POC Glucose 464 H 448 H 495 H Hemoglobin A1c Calcium Total Creatine Kinase Troponin T NT-Pro-B Natriuret Pep Triglycerides HDL Cholesterol Urine Creatinine 06/28/19 06/29/19 06/29/19 20:59 07:41 08:35 WBC Hgb Hct MCV MCH RDW Lymph % (Auto) [place] % (Auto) Lymph # Seg Neutrophils % Seg Neuts % (Manual) Lymphocytes % (Manual) Seg Neutrophils # Man Lymphocytes # (Manual) POC ABG pH Sodium 135 L Chloride Carbon Dioxide 20 L BUN 60 H Creatinine 2.9 H Glucose 407 H POC Glucose 422 H 386 H Hemoglobin A1c Calcium 8.1 L Total Creatine Kinase Troponin T NT-Pro-B Natriuret Pep Triglycerides HDL Cholesterol Urine Creatinine
== END 2019-06-29 12:30 | disposition home or self-care (01) | DRG 189 ==
LOC: ED 02:12 → EEVIPCON 04:47 → 4A 04:47
PROVIDERS: ADMIT Internal Medicine; ATTEND Hospitalist
PROC: 4A033R1 Measurement of Arterial Saturation, Peripheral, Percutaneous Approach (ICD-10-PCS; principal; 2019-06-24)
DX: J96.21 Acute and chronic respiratory failure with hypoxia (principal); N17.9 Acute kidney failure, unspecified; I50.33 Acute on chronic diastolic (congestive) heart failure; J18.9 Pneumonia, unspecified organism; I13.0 Hypertensive heart and chronic kidney disease with heart failure and stage 1 through stage 4 chronic kidney disease, or unspecified chronic kidney disease; E66.9 Obesity, unspecified; Z68.41 Body mass index [BMI] 40.0-44.9, adult; E11.22 Type 2 diabetes mellitus with diabetic chronic kidney disease; D64.9 Anemia, unspecified; N18.3 Chronic kidney disease, stage 3 (moderate); E66.01 Morbid (severe) obesity due to excess calories; E11.65 Type 2 diabetes mellitus with hyperglycemia; J44.1 Chronic obstructive pulmonary disease with (acute) exacerbation; Z91.14 Patient's other noncompliance with medication regimen; Z79.84 Long term (current) use of oral hypoglycemic drugs; J44.0 Chronic obstructive pulmonary disease with (acute) lower respiratory infection
CPT/HCPCS: 36415; 71045; 71046; 71250; 76770; 78452; 80048; 80061; 81001; 82140; 82550; 82553; 82570; 82803; 82947; 82962; 83036; 83735; 83880; 84300; 84484; 85007; 85025; 85610; 85730; 87040; 87116; 90686; 93005; 93010; 93017; 93306; 94640; G0378; A9270-GY; A9502; J1644; J1815; J1940; J1956; J2785; J2930

== ENCOUNTER 2020-08-31 00:50 | Observation (INO) | payer MEDICARE ==
[2020-08-31] MEDS ORDERED: LORazepam 2 MG/ML VIAL IV ONE (01:14)
[2020-08-31] MEDS ORDERED: MORPHINE 4 MG/1 ML INJ IV ONE (01:15)
[2020-08-31] MEDS ORDERED: hydrALAZINE 20 MG/1 ML INJ IV ONE (01:15)
[2020-08-31] MEDS ORDERED: ONDANSETRON 4 MG/2 ML INJ IV ONE (01:15)
--- NOTE | 2020-08-31 01:17 | Emergency Department Report ---
ED General Adult HPI - General Chief complaint: Dyspnea/Respdistress Stated complaint: weak PUI?: Yes Time Seen by Provider: 08/31/20 00:59 Source: patient, EMS ( EMS documentation not available at time of chart dictation ), RN notes reviewed, old records reviewed Mode of arrival: Stretcher Limitations: Physical Limitation - History of Present Illness Initial comments: The patient was evaluated in the emergency department for symptoms described in the history of present illness. He/she was evaluated in the context of the [facility] COVID-19 pandemic, which necessitated consideration that the patient might be at risk for infection with the virus that causes COVID-19. Institutional protocols and algorithms that pertain to the evaluation of patients at risk for COVID-19 are in a state of rapid change based on information released by regulatory bodies including the CDC and federal and state organizations. These policies and algorithms were followed during the patient's care in the emergency department. Please note that these policies, procedures and recommendations changed on a rapid basis. During the entire history and physical examination, I had on complete personal protective equipment. Recent objective diagnostic testing at this facility: Left heart catheterization, 2015, negative for significant coronary artery disease. Nuclear medicine stress test, 2019, negative for ischemic heart disease. Echocardiogram/nuclear medicine study have suggested ejection fraction of 40%. Nuclear medicine study for pulmonary embolism, 2015, low probability for pulmonary embolism Past medical history: High ejection fraction congestive heart failure, COPD, obesity, chronic respiratory failure on home oxygen, diabetes, hypertension, obesity, question obstructive sleep apnea, has not had sleep study and is not currently on CPAP/BiPAP. Nephrology: Patient does not recall the name of his outside industrial sales representative, but in the p ast, has seen Dr. Olmedo This patient is a 55-year-old gentleman who was brought to the hospital by emergency medical services with a complaint of weakness, chills, cough, shortness of breath, dizziness, fatigue, abdominal cramping, chest tightness, malaise and fatigue. Patient's last known well time is apparently Monday evening. He reports that he woke up Monday morning feeling weak. Denies headache and neck pain. Reports nausea but no vomiting. Positive diffuse chest tightness. Positive diffuse abdominal cramping. Positive shortness of breath. Thinks that he is up on his volume. He typically gets hemodialysis Monday, Monday, Monday. No surgery, oral contraceptive use, immobilization. No loss of taste or smell. Patient reports that he feels dizzy, lightheaded and weak, but reports that he is not actually lost consciousness. -: Gradual, days(s) Location: head, chest, abdomen Severity scale (0 -10): 10 Quality: aching Consistency: constant Improves with: rest Worsens with: movement - Related Data Home Medications Medication Instructions Recorded Confirmed Last Taken Bumetanide 1 mg PO DAILY 06/24/19 06/24/19 Unknown Januvia 100 mg PO DAILY 06/24/19 06/24/19 Unknown Terazosin (Nf) 5 mg PO HS 06/24/19 06/24/19 Unknown Previous Rx's Medication Instructions Recorded Last Taken Type glipiZIDE [glipiZIDE XL] 10 mg PO QPM #30 tab.er.24 05/07/17 Unknown Rx Albuterol Mdi (or & Nicu Only) 2 puff IH QID PRN #1 inhalation 06/29/19 Unknown Rx [ProAir HFA Inhaler] AtorvaSTATin 40 mg PO DAILY #30 06/29/19 Unknown Rx Coreg 25 mg PO DAILY #30 06/29/19 Unknown Rx Isosorbide Dinitrate 20 mg PO TID #90 tab 06/29/19 Unknown Rx Lispro Insulin [HumaLOG] 0 unit SUB-Q ACHS units 06/29/19 Unknown Rx amLODIPine 10 mg PO DAILY #30 tablet 06/29/19 Unknown Rx hydrALAZINE [Apresoline TAB] 100 mg PO Q8HR #90 tablet 06/29/19 Unknown Rx Aspirin EC [Halfprin EC] 81 mg PO QDAY #30 tablet. 01/09/20 Unknown Rx Allergies Allergy/AdvReac Type Severity Reaction Status Date / Time gabapentin Allergy Unknown Verified 08/31/20 01:01 ED Review of Systems ROS: Stated complaint: SYNCOPE Other details as noted in HPI Constitutional: chills, malaise, weakness Eyes: denies: eye discharge Respiratory: cough, shortness of breath Cardiovascular: chest pain Gastrointestinal: abdominal pain, nausea Genitourinary: denies: dysuria Musculoskeletal: myalgia Neurological: weakness Psychiatric: anxiety Hematological/Lymphatic: denies: easy bleeding ED Past Medical Hx - Past Medical History Previous Medical History?: Yes Hx Hypertension: Yes Hx Heart Attack/AMI: No Hx Congestive Heart Failure: Yes Hx Diabetes: Yes Hx Deep Vein Thrombosis: No Hx Pulmonary Embolism: No Hx Liver Disease: No Hx Asthma: No Hx COPD: No Hx Tuberculosis: No Hx HIV: No Additional medical history: possible sciatica. bronchitis. Obesity - Surgical History Past Surgical History?: Yes Hx Coronary Stent: No Hx Pacemaker: No Hx Internal Defibrillator: No Additional Surgical History: Salivary gland removed. fistula to right arm - Social History Smoking Status: Never Smoker Substance Use Type: Marijuana - Medications Home Medications: Home Medications Medication Instructions Recorded Confirmed Last Taken Type glipiZIDE [glipiZIDE XL] 10 mg PO QPM #30 tab.er.24 05/07/17 06/24/19 Unknown Rx Bumetanide 1 mg PO DAILY 06/24/19 06/24/19 Unknown History Januvia 100 mg PO DAILY 06/24/19 06/24/19 Unknown History Terazosin (Nf) 5 mg PO HS 06/24/19 06/24/19 Unknown History Albuterol Mdi (or & Nicu Only) 2 puff IH QID PRN #1 inhalation 06/29/19 Unknown Rx [ProAir HFA Inhaler] AtorvaSTATin 40 mg PO DAILY #30 06/29/19 Unknown Rx Coreg 25 mg PO DAILY #30 06/29/19 Unknown Rx Isosorbide Dinitrate 20 mg PO TID #90 tab 06/29/19 Unknown Rx Lispro Insulin [HumaLOG] 0 unit SUB-Q ACHS units 06/29/19 Unknown Rx amLODIPine 10 mg PO DAILY #30 tablet 06/29/19 Unknown Rx hydrALAZINE [Apresoline TAB] 100 mg PO Q8HR #90 tablet 06/29/19 Unknown Rx Aspirin EC [Halfprin EC] 81 mg PO QDAY #30 tablet. 01/09/20 Unknown Rx ED Physical Exam - General Limitations: Physical Limitation General appearance: alert, anxious, in distress, obese - Head Head exam: Present: atraumatic, normocephalic - Eye Eye exam: Present: normal appearance, EOMI. Absent: nystagmus - ENT ENT exam: Present: normal exam, normal orophraynx, mucous membranes moist, normal external ear exam - Neck Neck exam: Present: normal inspection, full ROM. Absent: tenderness, meningismus - Respiratory Respiratory exam: Present: rhonchi, accessory muscle use. Absent: respiratory distress, wheezes, stridor - Cardiovascular Cardiovascular Exam: Present: regular rate, normal rhythm, normal heart sounds, JVD. Absent: bradycardia, tachycardia, irregular rhythm, systolic murmur, diastolic murmur, rubs, gallop - GI/Abdominal GI/Abdominal exam: Present: soft, tenderness. Absent: distended, guarding, rebound, rigid, pulsatile mass - Rectal Rectal exam: Present: deferred - Extremities Exam Extremities exam: Present: normal inspection (Right upper extremity fistula, without redness, pus or streaking), full ROM, pedal edema (2+ edema in the bilateral lower extremities), other (2+ pulses noted in the bilateral upper and lower extremities. There is no palpable cord. negative Homans sign. Muscular compartments are soft. The pelvis is stable.) - Back Exam Back exam: Present: normal inspection. Absent: tenderness, CVA tenderness (R), CVA tenderness (L), paraspinal tenderness, vertebral tenderness - Neurological Exam Neurological exam: Present: alert, other (No facial droop. Tongue midline. Extraocular movements intact bilaterally. Facial sensation intact to light touch in V1, V2, V3 distribution bilaterally. 5 and a 5 strength in 4 extremities. Sensation intact to light touch in 4 extremities.) - Psychiatric Psychiatric exam: Present: anxious - Skin Skin exam: Present: warm, dry, intact, normal color. Absent: rash ED Course Vital Signs 08/31/20 08/31/20 08/31/20 01:00 01:02 01:14 Temperature 98.3 F Pulse Rate 79 76 Respiratory 25 H 24 Rate Blood Pressure Blood Pressure 174/86 [Left] O2 Sat by Pulse 100 100 Oximetry 08/31/20 08/31/20 08/31/20 01:16 01:30 01:46 Temperature Pulse Rate 74 88 76 Respiratory 22 15 Rate Blood Pressure 174/86 174/86 141/65 Blood Pressure [Left] O2 Sat by Pulse 100 100 100 Oximetry - Reevaluation(s) Reevaluation #1: 08/31/20 01:23 Differential diagnosis, including but not limited to: Viral syndrome, pneumonia, COVID-19, congestive heart failure, colitis, diverticulitis, perforated viscus, subacute stroke, intracranial hemorrhage, end-stage renal disease on hemodialysis, electrolyte derangement Assessment and plan: 55-year-old gentleman with multiple complaints, including chills, shortness of breath, myalgias, abdominal cramping, chest tightness, malaise, weakness and nonspecific dizziness. It is currently 130 on Monday. Patient's last known well time is Monday evening, he reports that he woke up with symptoms Monday. Symptoms present for greater than 24 hours, therefore, no indication for emergent large vessel imaging. In addition, his current neurologic examination is not suggestive of large vessel occlusion. Patient reports that he woke up with symptoms, symptoms present for greater than 4.5 hours, therefore he is not a TPA candidate. Suspect CHF/viral syndrome/fluid overload/obstructive sleep apnea, pulmonary hypertension. We will treat the patient's symptoms. Placed on isolation precautions. Obtain noncontrast CT scan of the brain, and CT scan of the abdomen pelvis. Obtain x- ray of the chest, laboratory studies to risk stratify for Covid storm, placed courtesy consultation for his outside industrial sales representative, obtain EKG, and reassess after initial data points. Anticipate admission for supportive care. Have discussed this plan of care with the patient, who verbalized understanding, who is amenable to this plan of care. Reevaluation #2: 08/31/20 02:30 Troponin chronically elevated, this is likely a type II troponin leak. CT scan abdomen pelvis, brain pending interpretation at this time. May be a component of symptomatic uremia/azotemia. Reevaluation #3: 08/31/20 03:04 CT scan abdomen pelvis, CT scan of the brain reviewed and appreciated. Aspirin and Lasix will be ordered. Courtesy consultation to infectious disease will be ordered. Hospital physician, Dr. Wili Rocha to admit 08/31/20 03:07 5 points [place] Syncope Risk Score High risk 19.7% risk of 30-day serious adverse event (, arrhythmia, AR) ED Medical Decision Making - Lab Data Result diagrams: 08/31/20 01:36 08/31/20 01:36 Vital Signs 08/31/20 08/31/20 01:00 01:02 Pulse Rate 79 76 Respiratory 25 H 24 Rate Blood Pressure 174/86 [Left] O2 Sat by Pulse 100 100 Oximetry Lab Results 08/31/20 08/31/20 08/31/20 Range/Units 01:36 01:36 01:36 WBC 8.2 (4.5-11.0) K/mm3 RBC 3.79 (3.65-5.03) M/mm3 Hgb 11.6 L (11.8-15.2) gm/dl Hct 34.8 L (35.5-45.6) % MCV 92 (84-94) fl MCH 31 (28-32) pg MCHC 33 (32-34) % RDW 15.6 H (13.2-15.2) % Plt Count 216 (140-440) K/mm3 Lymph % (Auto) 11.9 L (13.4-35.0) % [place] % (Auto) 7.0 (0.0-7.3) % Eos % (Auto) 1.9 (0.0-4.3) % Baso % (Auto) 0.5 (0.0-1.8) % Lymph # (Auto) 1.0 L (1.2-5.4) K/mm3 [place] # (Auto) 0.6 (0.0-0.8) K/mm3 Eos # (Auto) 0.2 (0.0-0.4) K/mm3 Baso # (Auto) 0.0 (0.0-0.1) K/mm3 Seg Neutrophils % 78.7 H (40.0-70.0) % Seg Neutrophils # 6.5 (1.8-7.7) K/mm3 PT 12.7 (12.2-14.9) Sec. INR 0.96 (0.87-1.13) Sodium 141 (137-145) mmol/L Potassium 3.8 (3.6-5.0) mmol/L Chloride 102.3 (98-107) mmol/L Carbon Dioxide 26 (22-30) mmol/L Anion Gap 17 mmol/L BUN 37 H (9-20) mg/dL Creatinine 4.6 H (0.8-1.3) mg/dL Estimated GFR 16 ml/min BUN/Creatinine Ratio 8 % Glucose 195 H (75-100) mg/dL Lactic Acid (0.7-2.0) mmol/L Calcium 9.6 (8.4-10.2) mg/dL Magnesium 2.40 H (1.7-2.3) mg/dL Total Bilirubin 0.40 (0.1-1.2) mg/dL AST 12 (5-40) units/L ALT 12 (7-56) units/L Alkaline Phosphatase 66 (35-129) units/L Lactate Dehydrogenase 187 H (91-180) units/L Total Creatine Kinase 215 H (55-170) units/L Troponin T 0.077 H (0.00-0.029) ng/mL C-Reactive Protein 0.20 (0.00-1.30) mg/dL NT-Pro-B Natriuret Pep 2462 H (0-900) pg/mL Total Protein 6.5 (6.3-8.2) g/dL Albumin 4.1 (3.9-5) g/dL Albumin/Globulin Ratio 1.7 % 08/31/20 Range/Units 01:36 WBC (4.5-11.0) K/mm3 RBC (3.65-5.03) M/mm3 Hgb (11.8-15.2) gm/dl Hct (35.5-45.6) % MCV (84-94) fl MCH (28-32) pg MCHC (32-34) % RDW (13.2-15.2) % Plt Count (140-440) K/mm3 Lymph % (Auto) (13.4-35.0) % [place] % (Auto) (0.0-7.3) % Eos % (Auto) (0.0-4.3) % Baso % (Auto) (0.0-1.8) % Lymph # (Auto) (1.2-5.4) K/mm3 [place] # (Auto) (0.0-0.8) K/mm3 Eos # (Auto) (0.0-0.4) K/mm3 Baso # (Auto) (0.0-0.1) K/mm3 Seg Neutrophils % (40.0-70.0) % Seg Neutrophils # (1.8-7.7) K/mm3 PT (12.2-14.9) Sec. INR (0.87-1.13) Sodium (137-145) mmol/L Potassium (3.6-5.0) mmol/L Chloride (98-107) mmol/L Carbon Dioxide (22-30) mmol/L Anion Gap mmol/L BUN (9-20) mg/dL Creatinine (0.8-1.3) mg/dL Estimated GFR ml/min BUN/Creatinine Ratio % Glucose (75-100) mg/dL Lactic Acid 1.40 (0.7-2.0) mmol/L Calcium (8.4-10.2) mg/dL Magnesium (1.7-2.3) mg/dL Total Bilirubin (0.1-1.2) mg/dL AST (5-40) units/L ALT (7-56) units/L Alkaline Phosphatase (35-129) units/L Lactate Dehydrogenase (91-180) units/L Total Creatine Kinase (55-170) units/L Troponin T (0.00-0.029) ng/mL C-Reactive Protein (0.00-1.30) mg/dL NT-Pro-B Natriuret Pep (0-900) pg/mL Total Protein (6.3-8.2) g/dL Albumin (3.9-5) g/dL Albumin/Globulin Ratio % - EKG Data -: EKG Interpreted by In EKG shows normal: sinus rhythm Rate: normal - EKG Data 08/31/20 02:28 Sinus rhythm, 77 bpm. Left axis deviation, left anterior fascicular block. QTC is prolonged. There is minimal motion artifact. This EKG is abnormal. This EKG is not a STEMI when compared to prior EKG from January 2020, left axis deviation is more prominent. Otherwise, appears to be unchanged. - Radiology Data Radiology results: pending, report reviewed, image reviewed X-ray of the chest negative for acute findings. CT ABDOMEN AND PELVIS WITHOUT CONTRAST HISTORY: Acute abdominal pain COMPARISON: 01/07/2020 TECHNIQUE: Routine abdominal and pelvic CT exam performed without contrast. Lack of intravenous contrast limits evaluation of the vascular and solid organs.. All CT scans at this location are performed using CT dose reduction for ALARA by means of automated exposure control. FINDINGS: CT ABDOMEN: Lung Bases: There are scattered mild patchy groundglass opacities in lung bases. Liver: No significant abnormality. Biliary: No significant abnormality. Spleen: No significant abnormality. Unenlarged. Pancreas: No significant abnormality. Adrenals: No significant abnormality. Kidneys: No acute findings. Stable simple cyst in the lateral left kidney. Lymphatics: No lymphadenopathy. Vasculature: No significant abnormality. Bowel/Peritoneum: No acute abnormality. No free air. No free fluid. Normal appendix. Tiny fat- containing umbilical hernia again noted. CT PELVIC: : No significant abnormality. Lymphatics: No lymphadenopathy. Osseous Structures: No aggressive appearing osseous lesions. Additional Findings: None IMPRESSION: 1. No acute findings in the abdomen or pelvis themselves. 2. Mild patchy ground glass opacities in the lung bases could reflect infectious or inflammatory process. Viral pneumonia would be a possibility. Signer Name: Migel Boogie MD Signed: 08/31/2020 1:53 AM Workstation Name: [employer] CT head/brain wo con INDICATION: Dizziness and weakness. TECHNIQUE: Routine CT head without contrast. All CT scans at this location are performed using CT dose reduction for ALARA by means of automated exposure control. COMPARISON: 05/04/2017 FINDINGS: BRAIN / INTRACRANIAL CONTENTS: No acute hemorrhage, mass effect, midline shift, or hydrocephalus. No appreciable acute large territorial or lacunar infarct. No chronic infarct or focal atrophy. Normal brain volume and ventricular/sulcal size for age. ORBITS: No significant abnormality of visualized orbits. SINUSES / MASTOIDS: No significant abnormality of visualized sinuses and mastoid air cells. ADDITIONAL FINDINGS: None. IMPRESSION: 1. No acute intracranial abnormality. Signer Name: Migel Boogie MD Signed: 08/31/2020 1:51 AM Workstation Name: [employer] Critical care attestation.: If time is entered above; I have spent that time in minutes in the direct care of this critically ill patient, excluding procedure time. ED Disposition Clinical Impression: Acute abdominal pain, Dizziness, Suspected 2019 novel coronavirus infection, Shortness of breath, Obesity, End stage renal disease, HTN (hypertension) Disposition: OP ADMIT IP TO THIS HOSP Is pt being admited?: Yes Condition: Fair Instructions: Hypertension (ED) Referrals: PRIMARY CARE, [Primary Care Provider] - 3-5 Days HEART Score - HEART Score History: Moderately suspicious EKG: Non-specific Age: 45-65 Risk factors: > 3 risk factors or hx of atherosclerotic disease Troponin: Troponin T 0.077 ng/mL (0.00-0.029) H 08/31/20 01:36 Troponin: 1-3x normal limit HEART Score: 6 - Critical Actions Critical Actions: 4-6 pts:12-16.6% risk of adverse cardiac event. Should be admitted - Assessment Assessment Interval: Baseline - Level of Consciousness 1a. Level of Consciousness: alert/keenly responsive - LOC Questions 1b. LOC Questions: answers both correctly - LOC Command 1c. LOC Commands: performs tasks correctly - Best Gaze 2. Best Gaze: normal - Visual 3. Visual: no visual loss - Facial Palsy 4. Facial Palsy: normal symmetrical movement - Motor Arm 5a. Motor Arm Left: no drift 5b. Motor Arm Right: no drift - Motor Leg 6a. Motor Leg Left: no drift 6b. Motor Leg Right: no drift - Limb Ataxia 7. Limb Ataxia: absent - Sensory 8. Sensory: normal - Best Language 9. Best Language: no aphasia - Dysarthria 10. Dysarthria: normal - Extinction and Inattention 11. Extinction/Inattention: no abnormality - Scoring Total Score: 0 Stroke Severity: No Stroke Symptoms
[2020-08-31 01:56] LABS: Basophils % (Auto) 0.5 % (0.0-1.8); Eosinophils # (Auto) 0.2 K/mm3 (0.0-0.4); Eosinophils % (Auto) 1.9 % (0.0-4.3); Hematocrit 34.8 % (35.5-45.6); Hemoglobin 11.6 gm/dl (11.8-15.2); Lymphocytes % (Auto) 11.9 % (13.4-35.0); Mean Corpuscular HGB Conc 33 % (32-34); Mean Corpuscular Volume 92 fl (84-94); Monocytes # (Auto) 0.6 K/mm3 (0.0-0.8); Platelet Count 216 K/mm3 (140-440); Red Blood Count 3.79 M/mm3 (3.65-5.03); Red Cell Distribution Width 15.6 % (13.2-15.2)
--- NOTE | 2020-08-31 01:57 | XRay Report ---
CHEST 1 VIEW 08/31/2020 1:32 AM INDICATION / CLINICAL INFORMATION: Dyspnea. COMPARISON: 01/06/2020 FINDINGS: SUPPORT DEVICES: None. HEART / MEDIASTINUM: No significant abnormality. LUNGS / PLEURA: No significant pulmonary or pleural abnormality. No pneumothorax. ADDITIONAL FINDINGS: No significant additional findings. IMPRESSION: 1. No acute findings. Signer Name: Migel Boogie MD Signed: 08/31/2020 1:53 AM Workstation Name: [id number]
[2020-08-31 02:21] LABS: Albumin 4.1 g/dL (3.9-5); Calcium 9.6 mg/dL (8.4-10.2)
[2020-08-31 02:23] LABS: INR 0.96 (0.87-1.13)
[2020-08-31 02:25] LABS: C-Reactive Protein 0.2 mg/dL (0.00-1.30)
[2020-08-31 02:30] LABS: Bilirubin,Urine NEG (Negative); Blood,Urine NEG (Negative); Color,Urine Yellow (Yellow); Urobilinogen,Urine < 2.0 mg/dL (<2.0); WBC,Urine < 1.0 /HPF (0.0-6.0)
[2020-08-31 02:35] LABS: Chol/HDL Ratio 5.97 %
--- NOTE | 2020-08-31 02:56 | Cat Scan Report ---
CT head/brain wo con INDICATION: Dizziness and weakness. TECHNIQUE: Routine CT head without contrast. All CT scans at this location are performed using CT dos e reduction for ALARA by means of automated exposure control. COMPARISON: 05/04/2017 FINDINGS: BRAIN / INTRACRANIAL CONTENTS: No acute hemorrhage, mass effect, midline shift, or hydrocephalus. No appreciable acute large territorial or lacunar infarct. No chronic infarct or focal atrophy. Normal b rain volume and ventricular/sulcal size for age. ORBITS: No significant abnormality of visualized orbits. SINUSES / MASTOIDS: No significant abnormality of visualized sinuses and mastoid air cells. ADDITIONAL FINDINGS: None. IMPRESSION: 1. No acute intracranial abnormality. Signer Name: Migel Boogie MD Signed: 08/31/2020 2:51 AM Workstation Name: [id number]
--- NOTE | 2020-08-31 02:57 | Cat Scan Report ---
CT ABDOMEN AND PELVIS WITHOUT CONTRAST HISTORY: Acute abdominal pain COMPARISON: 01/07/2020 TECHNIQUE: Routine abdominal and pelvic CT exam performed without contrast. Lack of intravenous cont rast limits evaluation of the vascular and solid organs.. All CT scans at this location are performed using CT dose reduction for ALARA by means of automated exposure control. FINDINGS: CT ABDOMEN: Lung Bases: There are scattered mild patchy groundglass opacities in lung bases. Liver: No significant abnormality. Biliary: No significant abnormality. Spleen: No significant abnormality. Unenlarged. Pancreas: No significant abnormality. Adrenals: No significant abnormality. Kidneys: No acute findings. Stable simple cyst in the lateral left kidney. Lymphatics: No lymphadenopathy. Vasculature: No significant abnormality. Bowel/Peritoneum: No acute abnormality. No free air. No free fluid. Normal appendix. Tiny fat-contain ing umbilical hernia again noted. CT PELVIC: : No significant abnormality. Lymphatics: No lymphadenopathy. Osseous Structures: No aggressive appearing osseous lesions. Additional Findings: None IMPRESSION: 1. No acute findings in the abdomen or pelvis themselves. 2. Mild patchy ground glass opacities in the lung bases could reflect infectious or inflammatory proc ess. Viral pneumonia would be a possibility. Signer Name: Migel Boogie MD Signed: 08/31/2020 2:53 AM Workstation Name: [email or web address]
[2020-08-31] MEDS ORDERED: dexAMETHasone 4 MG/ML VIAL IV ONE (02:59)
[2020-08-31] MEDS ORDERED: FUROSEMIDE 40 MG/4 ML INJ IV ONE (03:02)
[2020-08-31] MEDS ORDERED: ASPIRIN 81 MG TAB CHEW PO ONE (03:07)
[2020-08-31] MEDS ORDERED: ACETAMINOPHEN 325 MG TAB PO PRN (04:08)
[2020-08-31] MEDS ORDERED: ONDANSETRON 4 MG/2 ML INJ IV PRN (04:10)
[2020-08-31] MEDS ORDERED: DEXTROSE 50% IN WATER (25GM) 50 ML SYRINGE IV PRN (04:21)
--- NOTE | 2020-08-31 05:55 | History and Physical Report ---
History of Present Illness Date of examination: 08/31/20 Date of admission: 08/31/20 03:08 Chief complaint: Chief complaint is chest tightness, other complaint include weakness, shortness of breath and cough History of present illness: History of presenting illness, patient is a 55-year-old male who said he was okay up to Monday night and then woke up on Monday morning with chest tightness, weakness and persistent dry cough, there is also history of abdominal cramping, malaise and dizziness. Patient denied history of fever, nausea or vomiting and said that he does not feel too good, patient said he has had about 3 - Covid test within the last 2 months. Past History Past Medical History: COPD, diabetes, hypertension, renal failure, other (RESPIRATORY FAILURE, OBESITY, SLEEP APNEA) Past Surgical History: Other (SALIVERY GLAND EXCISION, RIGHT ARM FISTULA) Social history: other (MARIJUANA) Medications and Allergies Allergies Allergy/AdvReac Type Severity Reaction Status Date / Time gabapentin Allergy Unknown Verified 08/31/20 01:01 Home Medications Medication Instructions Recorded Confirmed Last Taken Type glipiZIDE [glipiZIDE XL] 10 mg PO QPM #30 tab.er.24 05/07/17 08/31/20 Unknown Rx Bumetanide 1 mg PO DAILY 06/24/19 08/31/20 Unknown History Januvia 100 mg PO DAILY 06/24/19 08/31/20 Unknown History Terazosin (Nf) 5 mg PO HS 06/24/19 08/31/20 Unknown History Albuterol Mdi (or & Nicu Only) 2 puff IH QID PRN #1 inhalation 06/29/19 08/31/20 Unknown Rx [ProAir HFA Inhaler] AtorvaSTATin 40 mg PO DAILY #30 06/29/19 08/31/20 Unknown Rx Coreg 25 mg PO DAILY #30 06/29/19 08/31/20 Unknown Rx Isosorbide Dinitrate 20 mg PO TID #90 tab 06/29/19 08/31/20 Unknown Rx Lispro Insulin [HumaLOG] 0 unit SUB-Q ACHS units 06/29/19 08/31/20 Unknown Rx amLODIPine 10 mg PO DAILY #30 tablet 06/29/19 08/31/20 Unknown Rx hydrALAZINE [Apresoline TAB] 100 mg PO Q8HR #90 tablet 06/29/19 08/31/20 Unknown Rx Aspirin EC [Halfprin EC] 81 mg PO QDAY #30 tablet. 01/09/20 08/31/20 Unknown Rx Furosemide [Lasix TAB] 80 mg PO QDAY 08/31/20 08/31/20 Unknown History Active Meds: Active Medications Acetaminophen (Acetaminophen 325 Mg Tab) 650 mg PO Q4H PRN PRN Reason: Fever >101 Aspirin (Aspirin 325 Mg Tab) 325 mg PO QDAY [facility] Dextrose (Dextrose 50% In Water (25gm) 50 Ml Syringe) 50 ml IV Q30MIN PRN; Protocol PRN Reason: Hypoglycemia Azithromycin (Zithromax/Ns) 500 mg in 250 mls @ 250 mls/hr IV Q24H [facility] Ceftriaxone Sodium (Rocephin/Ns 2 Gm/100 Ml) 2 gm in 100 mls @ 200 mls/hr IV Q24H [facility]; Protocol Insulin Human Regular (Insulin Regular, Human 100 Units/1 Ml) 0 units SUB-Q AC [facility]; Protocol Insulin Human Regular (Insulin Regular, Human 100 Units/1 Ml) 0 units SUB-Q QHS [facility]; Protocol Nitroglycerin (Nitroglycerin 2% Oint 1 Gm) 0.5 inch TP QIDNTG [facility]; Protocol Ondansetron HCl (Ondansetron 4 Mg/2 Ml Inj) 4 mg IV Q8H PRN PRN Reason: Nausea And Vomiting Review of Systems Constitutional: fatigue, weakness, malaise, no fever, no chills, no sweats Eyes: bilateral: other (NO BILATERAL EYE SYMPTOMS) Ears, nose, mouth and throat: no ear pain Cardiovascular: chest pain, shortness of breath, no palpitations, no rapid/irregular heart beat, no syncope, no lightheadedness Respiratory: cough, shortness of breath, no cough with sputum, no excessive sputum, no hemoptysis, no wheezing, no pleurisy Gastrointestinal: abdominal pain, no nausea, no vomiting, no diarrhea, no constipation Genitourinary Male: no dysuria, no hematuria, no flank pain Rectal: no pain Musculoskeletal: no neck pain Integumentary: no rash, no pruritis, no redness, no sores, no wounds, no jaundice Neurological: weakness, no paralysis, no parathesias, no numbness, no tingling, no seizures, no syncope, no vertigo, no headaches, no convulsions, no change in speech, no change in mentation, no confusion Psychiatric: no anxiety, no depression Endocrine: no polyphagia, no polydipsia, no polyuria, no nocturia, no palpatations Hematologic/Lymphatic: no easy bruising, no easy bleeding Exam - Constitutional Vitals: Temp Pulse Resp BP Pulse Ox 98.3 F 81 16 164/83 95 08/31/20 01:14 08/31/20 04:00 08/31/20 04:00 08/31/20 04:00 08/31/20 04:00 General appearance: Present: mild distress - EENT Eyes: Present: PERRL, EOM intact ENT: hearing intact, clear oral mucosa, dentition normal - Neck Neck: Present: supple, normal ROM - Respiratory Respiratory effort: normal - Cardiovascular Rhythm: regular Heart Sounds: Present: S1 & S2. Absent: gallop, systolic murmur, diastolic murmur, click - Extremities Extremities: no ischemia, No edema Peripheral Pulses: within normal limits - Abdominal General gastrointestinal: Present: soft, non-tender, non-distended. Absent: tender, distended, rigid, hepatomegaly, splenomegaly Male genitourinary: Present: deferred - Rectal Rectal Exam: deferred - Integumentary Integumentary: Present: clear, warm, dry - Musculoskeletal Musculoskeletal: generalized weakness - Psychiatric Psychiatric: appropriate mood/affect HEART Score - HEART Score EKG: Non-specific Age: 45-65 Risk factors: > 3 risk factors or hx of atherosclerotic disease Troponin: Troponin T 0.077 ng/mL (0.00-0.029) H 08/31/20 01:36 Troponin: 1-3x normal limit - Critical Actions Critical Actions: 4-6 pts:12-16.6% risk of adverse cardiac event. Should be admitted Results - Labs CBC & Chem 7: 08/31/20 01:36 08/31/20 01:36 Labs: Laboratory Last Values WBC 8.2 K/mm3 (4.5-11.0) 08/31/20 01:36 RBC 3.79 M/mm3 (3.65-5.03) 08/31/20 01:36 Hgb 11.6 gm/dl (11.8-15.2) L 08/31/20 01:36 Hct 34.8 % (35.5-45.6) L 08/31/20 01:36 MCV 92 fl (84-94) 08/31/20 01:36 MCH 31 pg (28-32) 08/31/20 01:36 MCHC 33 % (32-34) 08/31/20 01:36 RDW 15.6 % (13.2-15.2) H 08/31/20 01:36 Plt Count 216 K/mm3 (140-440) 08/31/20 01:36 Lymph % (Auto) 11.9 % (13.4-35.0) L 08/31/20 01:36 [place] % (Auto) 7.0 % (0.0-7.3) 08/31/20 01:36 Eos % (Auto) 1.9 % (0.0-4.3) 08/31/20 01:36 Baso % (Auto) 0.5 % (0.0-1.8) 08/31/20 01:36 Lymph # (Auto) 1.0 K/mm3 (1.2-5.4) L 08/31/20 01:36 [place] # (Auto) 0.6 K/mm3 (0.0-0.8) 08/31/20 01:36 Eos # (Auto) 0.2 K/mm3 (0.0-0.4) 08/31/20 01:36 Baso # (Auto) 0.0 K/mm3 (0.0-0.1) 08/31/20 01:36 Seg Neutrophils % 78.7 % (40.0-70.0) H 08/31/20 01:36 Seg Neutrophils # 6.5 K/mm3 (1.8-7.7) 08/31/20 01:36 PT 12.7 Sec. (12.2-14.9) 08/31/20 01:36 INR 0.96 (0.87-1.13) 08/31/20 01:36 D-Dimer 933.44 ng/mlDDU (0-234) H 08/31/20 01:36 Sodium 141 mmol/L (137-145) 08/31/20 01:36 Potassium 3.8 mmol/L (3.6-5.0) 08/31/20 01:36 Chloride 102.3 mmol/L (98-107) 08/31/20 01:36 Carbon Dioxide 26 mmol/L (22-30) 08/31/20 01:36 Anion Gap 17 mmol/L 08/31/20 01:36 BUN 37 mg/dL (9-20) H 08/31/20 01:36 Creatinine 4.6 mg/dL (0.8-1.3) H 08/31/20 01:36 Estimated GFR 16 ml/min 08/31/20 01:36 BUN/Creatinine Ratio 8 % 08/31/20 01:36 Glucose 195 mg/dL (75-100) H 08/31/20 01:36 Lactic Acid 1.40 mmol/L (0.7-2.0) 08/31/20 01:36 Calcium 9.6 mg/dL (8.4-10.2) 08/31/20 01:36 Magnesium 2.40 mg/dL (1.7-2.3) H 08/31/20 01:36 Ferritin 128.9 ng/mL (30.0-300.0) 08/31/20 01:36 Total Bilirubin 0.40 mg/dL (0.1-1.2) 08/31/20 01:36 AST 12 units/L (5-40) 08/31/20 01:36 ALT 12 units/L (7-56) 08/31/20 01:36 Alkaline Phosphatase 66 units/L (35-129) 08/31/20 01:36 Lactate Dehydrogenase 187 units/L (91-180) H 08/31/20 01:36 Total Creatine Kinase 215 units/L (55-170) H 08/31/20 01:36 Troponin T 0.077 ng/mL (0.00-0.029) H 08/31/20 01:36 C-Reactive Protein 0.20 mg/dL (0.00-1.30) 08/31/20 01:36 NT-Pro-B Natriuret Pep 2462 pg/mL (0-900) H 08/31/20 01:36 Total Protein 6.5 g/dL (6.3-8.2) 08/31/20 01:36 Albumin 4.1 g/dL (3.9-5) 08/31/20 01:36 Albumin/Globulin Ratio 1.7 % 08/31/20 01:36 Triglycerides 337 mg/dL (2-149) H 08/31/20 01:36 Cholesterol 221 mg/dL (50-199) H 08/31/20 01:36 LDL Cholesterol Direct 146 mg/dL (50-130) H 08/31/20 01:36 HDL Cholesterol 37 mg/dL (40-59) L 08/31/20 01:36 Cholesterol/HDL Ratio 5.97 % 08/31/20 01:36 Urine Color Yellow (Yellow) 08/31/20 02:08 Urine Turbidity Clear (Clear) 08/31/20 02:08 Urine pH 8.0 (5.0-7.0) H 08/31/20 02:08 Ur Specific [place] 1.009 (1.003-1.030) 08/31/20 02:08 Urine Protein 100 mg/dl mg/dL (Negative) 08/31/20 02:08 Urine Glucose (UA) 150 mg/dL (Negative) 08/31/20 02:08 Urine Ketones Neg mg/dL (Negative) 08/31/20 02:08 Urine Blood Neg (Negative) 08/31/20 02:08 Urine Nitrite Neg (Negative) 08/31/20 02:08 Urine Bilirubin Neg (Negative) 08/31/20 02:08 Urine Urobilinogen < 2.0 mg/dL (<2.0) 08/31/20 02:08 Ur Leukocyte Esterase Neg (Negative) 08/31/20 02:08 Urine WBC (Auto) < 1.0 /HPF (0.0-6.0) 08/31/20 02:08 Urine RBC (Auto) 2.0 /HPF (0.0-6.0) 08/31/20 02:08 Microbiology: Microbiology 08/31/20 01:31 Peripheral/Venous Blood Culture - Preliminary Culture in Progress 08/31/20 01:36 Peripheral/Venous Blood Culture - Preliminary Culture in Progress Assessment and Plan - Patient Problems (1) End stage renal disease Current Visit: Yes Status: Acute Plan to address problem: NEPHROLOGY CONSULT (2) Suspected 2019 novel coronavirus infection Current Visit: Yes Status: Acute Plan to address problem: 1. COVID-19 PCR TEST 2. DROPLET/CONTACT ISOLATION 3. INFECTIOUS DISEASE CONSULT 4. I.V ZITHROMAX ANTIBIOTIC 5. I.V ROCEPHIN ANTIBIOTIC 6. I.V DEXAMETHASONE (3) Elevated troponin Current Visit: No Status: Acute Plan to address problem: 1. SERIAL CARDIAC ENZYMES LEVEL 2. CARDIOLOGY CONSULT
[2020-08-31 06:46] LABS: Creatine Kinase MB 3.4 ng/mL (0.0-4.0)
[2020-08-31] MEDS: AZITHROMYCIN/NS 500 MG/250 ML 500 MG/250 ML BAG IV SCH (06:51)
[2020-08-31] MEDS: INSULIN REGULAR, HUMAN 100 UNITS/1 ML SUB-Q SCH ×3 (07:30→16:30)
[2020-08-31] MEDS: cefTRIAXone/NS 2 GM/100 ML 2 GM/100 ML BAG IV SCH ×2 (07:56→17:01)
[2020-08-31] MEDS: NITROGLYCERIN 2% OINT 1 GM TP SCH ×4 (07:56→17:16)
[2020-08-31] MEDS ORDERED: hydrALAZINE 25 MG TAB PO SCH (09:00)
--- NOTE | 2020-08-31 09:20 | Event Note ---
Date: 08/31/20 Patient seen and examined, reports improvement in symptoms. He reports that he had a syncopal episode at home after a few days of not feeling well, generalized weakness and queasiness in the stomach. He reportedly takes lasix on non dialysis days. Will add PT/OT to the care plan.
--- NOTE | 2020-08-31 09:42 | Consultation ---
History of Present Illness - Reason for Consult Consult date: 08/31/20 end stage renal disease - History of Present Illness patient is a 55 year old male with ESRD on HDwas admitted for worsening chest pain with abdominal cramping, malaise and dizziness, he was found to have elevated tropnin and was admitted for work up. he is currently on isolation for COVID-19 rule out Past History Past Medical History: COPD, diabetes, hypertension, renal failure, other (RESPIRATORY FAILURE, OBESITY, SLEEP APNEA) Past Surgical History: Other (SALIVERY GLAND EXCISION, RIGHT ARM FISTULA) Social history: other (MARIJUANA) Medications and Allergies Allergies Allergy/AdvReac Type Severity Reaction Status Date / Time gabapentin Allergy Unknown Verified 08/31/20 01:01 Home Medications Medication Instructions Recorded Confirmed Last Taken Type glipiZIDE [glipiZIDE XL] 10 mg PO QPM #30 tab.er.24 05/07/17 08/31/20 Unknown Rx Bumetanide 1 mg PO DAILY 06/24/19 08/31/20 Unknown History Januvia 100 mg PO DAILY 06/24/19 08/31/20 Unknown History Terazosin (Nf) 5 mg PO HS 06/24/19 08/31/20 Unknown History Albuterol Mdi (or & Nicu Only) 2 puff IH QID PRN #1 inhalation 06/29/19 08/31/20 Unknown Rx [ProAir HFA Inhaler] AtorvaSTATin 40 mg PO DAILY #30 06/29/19 08/31/20 Unknown Rx Coreg 25 mg PO DAILY #30 06/29/19 08/31/20 Unknown Rx Isosorbide Dinitrate 20 mg PO TID #90 tab 06/29/19 08/31/20 Unknown Rx Lispro Insulin [HumaLOG] 0 unit SUB-Q ACHS units 06/29/19 08/31/20 Unknown Rx amLODIPine 10 mg PO DAILY #30 tablet 06/29/19 08/31/20 Unknown Rx hydrALAZINE [Apresoline TAB] 100 mg PO Q8HR #90 tablet 06/29/19 08/31/20 Unknown Rx Aspirin EC [Halfprin EC] 81 mg PO QDAY #30 tablet. 01/09/20 08/31/20 Unknown Rx Furosemide [Lasix TAB] 80 mg PO QDAY 08/31/20 08/31/20 Unknown History Active Meds: Active Medications Acetaminophen (Acetaminophen 325 Mg Tab) 650 mg PO Q4H PRN PRN Reason: Fever >101 Amlodipine Besylate (Amlodipine 10 Mg Tab) 10 mg PO DAILY [facility] Aspirin (Aspirin 325 Mg Tab) 325 mg PO QDAY [facility] Dextrose (Dextrose 50% In Water (25gm) 50 Ml Syringe) 50 ml IV Q30MIN PRN; Protocol PRN Reason: Hypoglycemia Hydralazine HCl (Hydralazine 100 Mg Tab) 100 mg PO Q8H [facility] Azithromycin (Zithromax/Ns) 500 mg in 250 mls @ 250 mls/hr IV Q24H [facility] Stop: 09/04/20 05:59 Last Admin: 08/31/20 06:51 Dose: 250 mls/hr Documented by: Ceftriaxone Sodium (Rocephin/Ns 2 Gm/100 Ml) 2 gm in 100 mls @ 200 mls/hr IV Q24H [facility]; Protocol Last Admin: 08/31/20 07:56 Dose: Not Given Documented by: Insulin Human Regular (Insulin Regular, Human 100 Units/1 Ml) 0 units SUB-Q AC [facility]; Protocol Last Admin: 08/31/20 07:30 Dose: 2 units Documented by: Insulin Human Regular (Insulin Regular, Human 100 Units/1 Ml) 0 units SUB-Q QHS [facility]; Protocol Isosorbide Dinitrate (Isosorbide Dinitrate 20 Mg Tab) 20 mg PO TID [facility] Nitroglycerin (Nitroglycerin 2% Oint 1 Gm) 0.5 inch TP QIDNTG [facility]; Protocol Last Admin: 08/31/20 07:56 Dose: Not Given Documented by: Ondansetron HCl (Ondansetron 4 Mg/2 Ml Inj) 4 mg IV Q8H PRN PRN Reason: Nausea And Vomiting Prazosin HCl (Prazosin 1 Mg Cap) 2 mg PO Q12HR [facility] Review of Systems All systems: negative (chest pain) Exam - Vital Signs Vital signs: Vital Signs Pulse Resp Pulse Ox 79 25 H 100 08/31/20 01:00 08/31/20 01:00 08/31/20 01:00 Results - Lab Results 08/31/20 01:36 08/31/20 01:36 Most recent lab results Calcium 9.6 mg/dL (8.4-10.2) 08/31/20 01:36 Magnesium 2.40 mg/dL (1.7-2.3) H 08/31/20 01:36 Assessment and Plan Chest pain elevated troponin ESRD on HD Suspected 2018 novel coronavirus infection Type II diabetes Anemia in CKD HTN No indication for HD today will assess dialysis needs daily renally dose meds strict I&O Daily weight
--- NOTE | 2020-08-31 12:05 | Nuclear Medicine Report ---
NUCLEAR MEDICINE PERFUSION SCAN INDICATION: hypoxia CORRELATION: AP chest performed earlier today RADIOPHARMACEUTICAL: Perfusion: 5.5 mCi Tc-99m MAA given IV FINDINGS: Perfusion images show symmetric and uniform radiotracer distribution throughout bilateral lung zones. Normal cardiac silhouette. IMPRESSION: Very low probability perfusion scan for pulmonary embolism. Signer Name: Umesh Brizuela Jr, MD Signed: 08/31/2020 12:01 PM Workstation Name: [id number]
[2020-08-31] MEDS: hydrALAZINE 100 MG TAB PO SCH ×2 (12:35→17:00)
[2020-08-31] MEDS: PRAZOSIN 1 MG CAP PO SCH ×2 (12:35→21:27)
[2020-08-31] MEDS: amLODIPine 10 MG TAB PO SCH (12:36)
[2020-08-31] MEDS: ASPIRIN 325 MG TAB PO SCH (12:36)
[2020-08-31] MEDS: FUROSEMIDE 40 MG TAB PO SCH (12:37)
--- NOTE | 2020-08-31 12:44 | Consultation ---
History of Present Illness - Reason for Consult Consult date: 08/31/20 COVID PUI Requesting physician: FRANTZ CHIRINOS - History of Present Illness The patient is a 55-year-old male with diabetes, hypertension, ESRD on HD was admitted to the hospital with chest pain, abdominal cramping, weakness. Also having some vomiting, chills. Admitted to the hospital as a COVID-19 PUI. Infectious diseases was consulted for additional evaluation. No fever here. Currently on supplemental oxygen by nasal cannula at 3 L/min. COVID-19 PCR is pending. Labs showed normal WBC, D-dimer 933, creatinine 4.6, CRP 0.20, procalcitonin 0.05. VQ scan with very low probability for PE. Chest x-ray did not show any pneumonia Review of Systems: reviewed in the chart, unable to obtain, minimize risk of transmission Past History Past Medical History: COPD, diabetes, hypertension, renal failure, other (RESPIRATORY FAILURE, OBESITY, SLEEP APNEA) Past Surgical History: Other (SALIVERY GLAND EXCISION, RIGHT ARM FISTULA) Social history: other (MARIJUANA) Medications and Allergies Allergies Allergy/AdvReac Type Severity Reaction Status Date / Time gabapentin Allergy Unknown Verified 08/31/20 01:01 Home Medications Medication Instructions Recorded Confirmed Last Taken Type glipiZIDE [glipiZIDE XL] 10 mg PO QPM #30 tab.er.24 05/07/17 08/31/20 Unknown Rx Bumetanide 1 mg PO DAILY 06/24/19 08/31/20 Unknown History Januvia 100 mg PO DAILY 06/24/19 08/31/20 Unknown History Terazosin (Nf) 5 mg PO HS 06/24/19 08/31/20 Unknown History Albuterol Mdi (or & Nicu Only) 2 puff IH QID PRN #1 inhalation 06/29/19 08/31/20 Unknown Rx [ProAir HFA Inhaler] AtorvaSTATin 40 mg PO DAILY #30 06/29/19 08/31/20 Unknown Rx Coreg 25 mg PO DAILY #30 06/29/19 08/31/20 Unknown Rx Isosorbide Dinitrate 20 mg PO TID #90 tab 06/29/19 08/31/20 Unknown Rx Lispro Insulin [HumaLOG] 0 unit SUB-Q ACHS units 06/29/19 08/31/20 Unknown Rx amLODIPine 10 mg PO DAILY #30 tablet 06/29/19 08/31/20 Unknown Rx hydrALAZINE [Apresoline TAB] 100 mg PO Q8HR #90 tablet 06/29/19 08/31/20 Unknown Rx Aspirin EC [Halfprin EC] 81 mg PO QDAY #30 tablet. 01/09/20 08/31/20 Unknown Rx Furosemide [Lasix TAB] 80 mg PO QDAY 08/31/20 08/31/20 Unknown History Active Meds: Active Medications Acetaminophen (Acetaminophen 325 Mg Tab) 650 mg PO Q4H PRN PRN Reason: Fever >101 Amlodipine Besylate (Amlodipine 10 Mg Tab) 10 mg PO DAILY [facility] Last Admin: 08/31/20 12:36 Dose: 10 mg Documented by: Aspirin (Aspirin 325 Mg Tab) 325 mg PO QDAY [facility] Last Admin: 08/31/20 12:36 Dose: 325 mg Documented by: Dextrose (Dextrose 50% In Water (25gm) 50 Ml Syringe) 50 ml IV Q30MIN PRN; Protocol PRN Reason: Hypoglycemia Furosemide (Furosemide 40 Mg Tab) 80 mg PO QDAY [facility] Last Admin: 08/31/20 12:37 Dose: 80 mg Documented by: Hydralazine HCl (Hydralazine 100 Mg Tab) 100 mg PO Q8H [facility] Last Admin: 08/31/20 12:35 Dose: 100 mg Documented by: Azithromycin (Zithromax/Ns) 500 mg in 250 mls @ 250 mls/hr IV Q24H [facility] Stop: 09/04/20 05:59 Last Admin: 08/31/20 06:51 Dose: 250 mls/hr Documented by: Ceftriaxone Sodium (Rocephin/Ns 2 Gm/100 Ml) 2 gm in 100 mls @ 200 mls/hr IV Q24H [facility]; Protocol Last Admin: 08/31/20 07:56 Dose: Not Given Documented by: Insulin Human Regular (Insulin Regular, Human 100 Units/1 Ml) 0 units SUB-Q [facility]; Protocol Last Admin: 08/31/20 07:30 Dose: 2 units Documented by: Insulin Human Regular (Insulin Regular, Human 100 Units/1 Ml) 0 units SUB-Q QHS [facility]; Protocol Isosorbide Dinitrate (Isosorbide Dinitrate 20 Mg Tab) 20 mg PO TID [facility] Nitroglycerin (Nitroglycerin 2% Oint 1 Gm) 0.5 inch TP QIDNTG [facility]; Protocol Last Admin: 08/31/20 12:37 Dose: 0.5 inch Documented by: Ondansetron HCl (Ondansetron 4 Mg/2 Ml Inj) 4 mg IV Q8H PRN PRN Reason: Nausea And Vomiting Prazosin HCl (Prazosin 1 Mg Cap) 2 mg PO Q12HR [facility] Last Admin: 08/31/20 12:35 Dose: 2 mg Documented by: Physical Examination - Physical Exam Narrative exam: Physical Exam (reviewed in chart to minimize risk of transmission) Constitutional: deferred Head, Ears, Nose: deferred Eyes: deferred Neck: deferred Oral: deferred Cardiovascular: deferred Respiratory: deferred GI: deferred Musculoskeletal: deferred Skin: deferred Hem/Lymphatic: deferred Psych: deferred Neurological: deferred - Constitutional Vitals: Vital Signs Temp Pulse Resp BP Pulse Ox 98.8 F 77 20 183/97 95 08/31/20 11:36 08/31/20 12:35 08/31/20 11:36 08/31/20 12:35 08/31/20 11:36 Temperature -Last 24 Hours Temperature 98.8 F Temperature 97.4 F Temperature 98.3 F Results - Labs CBC & Chem 7: 08/31/20 01:36 08/31/20 01:36 Labs: Abnormal lab results 08/31/20 08/31/20 08/31/20 Range/Units 01:36 01:36 01:36 Hgb 11.6 L (11.8-15.2) gm/dl Hct 34.8 L (35.5-45.6) % RDW 15.6 H (13.2-15.2) % Lymph % (Auto) 11.9 L (13.4-35.0) % Lymph # (Auto) 1.0 L (1.2-5.4) K/mm3 Seg Neutrophils % 78.7 H (40.0-70.0) % D-Dimer 933.44 H (0-234) ng/mlDDU BUN 37 H (9-20) mg/dL Creatinine 4.6 H (0.8-1.3) mg/dL Glucose 195 H (75-100) mg/dL POC Glucose (70-105) mg/dL Magnesium 2.40 H (1.7-2.3) mg/dL Lactate Dehydrogenase 187 H (91-180) units/L Total Creatine Kinase 215 H (55-170) units/L Troponin T 0.077 H (0.00-0.029) ng/mL NT-Pro-B Natriuret Pep 2462 H (0-900) pg/mL Triglycerides 337 H (2-149) mg/dL Cholesterol 221 H (50-199) mg/dL LDL Cholesterol Direct 146 H (50-130) mg/dL HDL Cholesterol 37 L (40-59) mg/dL Urine pH (5.0-7.0) 08/31/20 08/31/20 08/31/20 Range/Units 02:08 06:02 08:14 Hgb (11.8-15.2) gm/dl Hct (35.5-45.6) % RDW (13.2-15.2) % Lymph % (Auto) (13.4-35.0) % Lymph # (Auto) (1.2-5.4) K/mm3 Seg Neutrophils % (40.0-70.0) % D-Dimer (0-234) ng/mlDDU BUN (9-20) mg/dL Creatinine (0.8-1.3) mg/dL Glucose (75-100) mg/dL POC Glucose 232 H (70-105) mg/dL Magnesium (1.7-2.3) mg/dL Lactate Dehydrogenase (91-180) units/L Total Creatine Kinase 202 H (55-170) units/L Troponin T 0.077 H (0.00-0.029) ng/mL NT-Pro-B Natriuret Pep (0-900) pg/mL Triglycerides (2-149) mg/dL Cholesterol (50-199) mg/dL LDL Cholesterol Direct (50-130) mg/dL HDL Cholesterol (40-59) mg/dL Urine pH 8.0 H (5.0-7.0) - Imaging and Cardiology Chest x-ray: report reviewed, image reviewed (no pneumonia) Assessment and Plan Cultures: SARS CoV2 PCR: Pending 08/31/2020 blood culture: In process A/P: 55-year-old male with diabetes, hypertension, ESRD on HD admitted with chest pain, multiple symptoms: #Bilateral pneumonia: CT showed mild patchy groundglass opacities. COVID-19 PCR is pending. Labs showed normal WBC, D-dimer 933, creatinine 4.6, CRP 0.20, procalcitonin 0.05. VQ scan with very low probability for PE. Chest x-ray did not show any pneumonia #Acute hypoxic respiratory failure: on oxygen. #ESRD on HD Recs: -Follow-up COVID-19 PCR, if positive, due to hypoxia, start p.o. steroids. Due to ESRD, not a candidate for remdesivir per hospital criteria -plan to stop abx soon, procal is low Carmen Baptiste MD, FACP [facility] ([facility] O: [phone] F: [phone]
[2020-08-31] MEDS ORDERED: NON-FORMULARY EACH (Isosorbide Dinitrate 20 MG) PO SCH (14:00)
[2020-08-31] MEDS ORDERED: ISOSORBIDE DINITRATE 10 MG TAB PO SCH (14:00)
--- NOTE | 2020-08-31 14:00 | Consultation ---
HISTORY OF PRESENT ILLNESS: The patient is a 55-year-old gentleman with multiple medical problems who was brought to the hospital with multiple complaints that included weakness, chills, cough, shortness of breath, dizziness, fatigue, abdominal cramping and chest tightness. They also included malaise and fatigue. A Cardiology consult was requested because of an abnormal troponin level and chest pain. He has had negative cardiac workups in the past including negative coronary angiogram a few years ago as well as a negative stress test a few years ago. D-dimer was positive and a workup for pulmonary embolus is in progress. Blood tests for COVID is pending. PAST MEDICAL HISTORY: The chart lists end-stage renal disease, diabetes, hypertension, obesity, COPD and congestive heart failure. His ejection fraction was noted to be about 40% in the past. ALLERGIES: GABAPENTIN. MEDICATIONS: See the nurse's list. SOCIAL HISTORY: Smoking: None. Alcohol: No heavy use described in the medical record. There is a history of marijuana use. OPERATIONS: Salivary gland removal and fistula to the right arm. FAMILY HISTORY: Not available. REVIEW OF SYSTEMS: The chart also describes syncope. There are no details included. PHYSICAL EXAMINATION: GENERAL: Deferred due to COVID status pending. In the Emergency Room, he was noted to be anxious, in distress, obese. LUNGS: Rhonchi were noted on the lung exam in addition to accessory muscle use. IMPRESSION: 1. Chest pain; the troponin elevation is insignificant and likely secondary to chronic kidney disease. The D-dimer was positive and V/Q scan is pending. The patient had negative coronary angiogram and stress test in recent years. A repeat stress test can be considered. 2. History of congestive heart failure with ejection fraction of approximately 40%. 3. End-stage renal disease, on hemodialysis. 4. Uncontrolled hyperlipidemia with an LDL of 146, consider high-dose statin. 5. Possible pneumonia with shortness of breath and pulmonary infiltrates noted on chest x-ray. 6. Chronic obstructive pulmonary disease. 7. Obesity. 8. Diabetes. 9. Uncontrolled hypertension. PLAN: Pulmonary workup in progress and under therapy. Correct hypertension and hyperlipidemia. Consider repeat stress test during the hospital stay. JOB# [id number] KarinaDS/NTS
[2020-08-31] MEDS: ISOSORBIDE DINITRATE 20 MG TAB PO SCH ×2 (14:34→21:26)
[2020-08-31] MEDS ORDERED: cefTRIAXone/NS 2 GM/100 ML 2 GM/100 ML BAG IV SCH (17:00)
[2020-08-31] MEDS ORDERED: INSULIN REGULAR, HUMAN 100 UNITS/1 ML SUB-Q SCH (22:00)
[2020-08-31] MEDS ORDERED: NON-FORMULARY EACH (Terazosin (Nf) 5 MG) PO SCH (22:00)
[2020-09-01] MEDS: hydrALAZINE 100 MG TAB PO SCH ×3 (00:38→17:10)
[2020-09-01] MEDS: NITROGLYCERIN 2% OINT 1 GM TP SCH ×3 (05:01→17:09)
[2020-09-01] MEDS: AZITHROMYCIN/NS 500 MG/250 ML 500 MG/250 ML BAG IV SCH (05:14)
--- NOTE | 2020-09-01 08:30 | Progress Note ---
Assessment and Plan Chest pain elevated troponin ESRD on HD Suspected 2019 novel coronavirus infection Type II diabetes Anemia in CKD HTN HD today for clearance and volume removal will assess dialysis needs daily renally dose meds strict I&O Daily weight Babar Aguilar MD [phone] Subjective Date of service: 09/01/20 Principal diagnosis: ESRD Interval history: denies acute issues, no SOB Objective - Vital Signs Vital signs: Vital Signs - 12hr 08/31/20 23:58 Temperature 98.5 F Pulse Rate 74 Respiratory 20 Rate Blood Pressure 146/78 O2 Sat by Pulse 93 Oximetry - General Appearance General appearance: well-developed, well-nourished, appears stated age EENT: ATNC, PERRL, mucous membranes moist Neck: no JVD, no carotid bruit Respiratory: Present: Clear to Ascultation. Absent: Rales, Ronchi Cardiology: regular, S1S2 Gastrointestinal: normoactive bowel sounds, no tenderness, no distended Integumentary: no rash, warm and dry Neurologic: no focal deficit, no asterixis, alert and oriented x3 Musculoskeletal: other (no edema in BLE) Psychiatric: mood/affect appropriate, cooperative - Lab 08/31/20 01:36 08/31/20 01:36 Most recent lab results Calcium 9.6 mg/dL (8.4-10.2) 08/31/20 01:36 Magnesium 2.40 mg/dL (1.7-2.3) H 08/31/20 01:36 Medications & Allergies - Medications Allergies/Adverse Reactions: Allergies gabapentin Allergy (Verified 08/31/20 01:01) Unknown Home Medications: Home Medications Medication Instructions Recorded Confirmed Last Taken Type glipiZIDE [glipiZIDE XL] 10 mg PO QPM #30 tab.er.24 05/07/17 08/31/20 Unknown Rx Bumetanide 1 mg PO DAILY 06/24/19 08/31/20 Unknown History Januvia 100 mg PO DAILY 06/24/19 08/31/20 Unknown History Terazosin (Nf) 5 mg PO HS 06/24/19 08/31/20 Unknown History Albuterol Mdi (or & Nicu Only) 2 puff IH QID PRN #1 inhalation 06/29/19 08/31/20 Unknown Rx [ProAir HFA Inhaler] AtorvaSTATin 40 mg PO DAILY #30 06/29/19 08/31/20 Unknown Rx Coreg 25 mg PO DAILY #30 06/29/19 08/31/20 Unknown Rx Isosorbide Dinitrate 20 mg PO TID #90 tab 06/29/19 08/31/20 Unknown Rx Lispro Insulin [HumaLOG] 0 unit SUB-Q ACHS units 06/29/19 08/31/20 Unknown Rx amLODIPine 10 mg PO DAILY #30 tablet 06/29/19 08/31/20 Unknown Rx hydrALAZINE [Apresoline TAB] 100 mg PO Q8HR #90 tablet 06/29/19 08/31/20 Unknown Rx Aspirin EC [Halfprin EC] 81 mg PO QDAY #30 tablet. 01/09/20 08/31/20 Unknown Rx Furosemide [Lasix TAB] 80 mg PO QDAY 08/31/20 08/31/20 Unknown History Active Medications: Generic Name Dose Route Start Last Admin Trade Name Freq PRN Reason Stop Dose Admin Acetaminophen 650 mg 08/31/20 04:08 Acetaminophen 325 Mg Tab PO Q4H PRN Fever >101 Amlodipine Besylate 10 mg 08/31/20 10:00 08/31/20 12:36 Amlodipine 10 Mg Tab PO 10 mg DAILY JONATHAN Administration Aspirin 325 mg 08/31/20 10:00 08/31/20 12:36 Aspirin 325 Mg Tab PO 325 mg QDAY JONATHAN Administration Dextrose 50 ml 08/31/20 04:21 Dextrose 50% In Water (25gm) 50 Ml Syringe IV Q30MIN PRN Hypoglycemia Protocol Furosemide 80 mg 08/31/20 10:00 08/31/20 12:37 Furosemide 40 Mg Tab PO 80 mg QDAY JONATHAN Administration Hydralazine HCl 100 mg 08/31/20 08:00 09/01/20 00:38 Hydralazine 100 Mg Tab PO 100 mg Q8H JONATHAN Administration Azithromycin 500 mg in 250 mls @ 250 mls/hr 08/31/20 05:00 09/01/20 05:14 Zithromax/Ns IV 09/04/20 05:59 250 mls/hr Q24H JONATHAN Administration Ceftriaxone Sodium 2 gm in 100 mls @ 200 mls/hr 08/31/20 17:00 08/31/20 17:15 Rocephin/Ns 2 Gm/100 Ml IV 200 mls/hr 1700 JONATHAN Administration Protocol Insulin Human Regular 0 units 08/31/20 07:30 08/31/20 16:30 Insulin Regular, Human 100 Units/1 Ml SUB-Q 2 units AC [facility] Administration Protocol Insulin Human Regular 0 units 08/31/20 22:00 08/31/20 22:25 Insulin Regular, Human 100 Units/1 Ml SUB-Q 1 units QHS [facility] Administration Protocol Isosorbide Dinitrate 20 mg 08/31/20 14:00 08/31/20 21:26 Isosorbide Dinitrate 20 Mg Tab PO 20 mg TID [facility] Administration Nitroglycerin 0.5 inch 08/31/20 06:00 09/01/20 05:01 Nitroglycerin 2% Oint 1 Gm TP 0.5 inch QIDNTG [facility] Administration Protocol Ondansetron HCl 4 mg 08/31/20 04:10 Ondansetron 4 Mg/2 Ml Inj IV Q8H PRN Nausea And Vomiting Prazosin HCl 2 mg 08/31/20 10:00 08/31/20 21:27 Prazosin 1 Mg Cap PO 2 mg Q12HR [facility] Administration
[2020-09-01] MEDS: INSULIN REGULAR, HUMAN 100 UNITS/1 ML SUB-Q SCH ×2 (08:39→12:35)
[2020-09-01] MEDS: ISOSORBIDE DINITRATE 20 MG TAB PO SCH ×3 (08:40→17:14)
--- NOTE | 2020-09-01 08:53 | Discharge Summary ---
Providers - Providers Date of Admission: 08/31/20 03:08 Attending physician: MARY CHRISTIANSON MD 08/31/20 02:59 Consult to Physician [CONS] Urgent Comment: Consulting Provider: ANNALISA HASKINS Physician Instructions: Reason For Exam: suspected covid 08/31/20 04:15 Consult to Physician [CONS] Routine Comment: Consulting Provider: NGUYEN WILLSON Physician Instructions: Reason For Exam: CHEST PAIN 08/31/20 09:04 Physical Therapy Evaluation and Treat [CONS] Routine Comment: Reason For Exam: weak 08/31/20 09:20 Occupational Therapy Evaluate and Treat [CONS] Routine Comment: Reason For Exam: SYNCOPE 08/31/20 09:21 Consult to Physician [CONS] Routine Comment: Patient followed by them. Consulting Provider: JOSÉ MIGUEL HERNANDEZ Physician Instructions: Reason For Exam: ESRD Primary care physician: [employer] Hospitalization Reason for admission: Near syncope Condition: Stable Hospital course: patient is a 55-year-old male who said he was okay up to Monday night and then woke up on Monday morning with chest tightness, weakness and persistent dry cough, there is also history of abdominal cramping, malaise and dizziness. Patient denied history of fever, nausea or vomiting and said that he does not feel too good, patient said he has had about 3 - Covid test within the last 2 months. Patient this morning is doing well, ambulating ready to go home. He denies any chest pain, I have discussed stress test and he will like to do it outpatient. He understands to avoid strenuous activity until this is done. CT HEAD: NEGATIVE V/Q SCAN: Very low probability perfusion scan for pulmonary embolism. Atypical chest pain secondary to costochondritis Uncontrolled Hyperlipidemia URI without Pneumonia Type 2 NSTEMI COPD with mild exacerbation ESRD Obesity DM Disposition: TO HOME OR SELFCARE Time spent for discharge: 35 mins Core Measure Documentation - Palliative Care Palliative Care/ Comfort Measures: Not Applicable - Core Measures Any of the following diagnoses?: none Exam - Physical Exam Narrative exam: VITAL SIGNS: Reviewed. GENERAL: The patient appears normally developed, Vital signs as documented. HEAD: No signs of head trauma. EYES: Pupils are equal. Extraocular motions intact. EARS: Hearing grossly intact. MOUTH: Oropharynx is normal. NECK: No adenopathy, no JVD. CHEST: Chest with clear breath sounds bilaterally. No wheezes, rales, or rhonchi. CARDIAC: Regular rate and rhythm. S1 and S2, without murmurs, gallops, or rubs. VASCULAR: No Edema. Peripheral pulses normal and equal in all extremities. ABDOMEN: Soft, non tender and non distended. No rebound or guarding, and no masses palpated. Bowel Sounds normal. MUSCULOSKELETAL: Good range of motion of all major joints. Extremities without clubbing, cyanosis or edema. NEUROLOGIC EXAM: Alert and oriented x 3 No focal sensory or strength deficits. Speech normal. Follows commands. PSYCHIATRIC: Mood normal. SKIN: detail exam as documented in skin assessment - Constitutional Vitals: Temp Pulse Resp BP Pulse Ox 97.7 F 86 18 145/76 90 09/01/20 06:39 09/01/20 06:39 09/01/20 06:39 09/01/20 06:39 09/01/20 06:39 Plan Activity: advance as tolerated, fall precautions Diet: diabetic, renal Special Instructions: record daily weights, record daily BP diary, record blood sugar diary Additional Instructions: FOLLOW WITH CARDIOLOGY FOR STRESS TEST Follow up with: HUMBERTO MILLER MD [Primary Care Provider] - 3-5 Days IBETH GUTHRIE MD [Staff Physician] - 7 Days
--- NOTE | 2020-09-01 09:32 | Progress Note ---
<TAVO LOPEZ - Last Filed: 09/01/20 09:41> Assessment and Plan Chest pain, atypical 06/2019 Echo reports - EF 50-55%, mild LVH,LA severely dilated, RA mod to severely dilated. 06/2019 MPI stress test was negative for ischemia, EF 40%. 2014 [facility]: no significant coronary artery disease. Mild elevation of troponin nonspecific, likely in the setting of renal insufficiency COPD exacerbation negative COVID 19 test ESRD on hemodialysis HTN DM Conservative cardiac management. Subjective Date of service: 09/01/20 Principal diagnosis: ESRD Interval history: Patient appears well, denies chest pain. For planned discharge home today. Objective Vital Signs Temp Pulse Resp BP Pulse Ox 09/01/20 06:39 97.7 F 86 18 145/76 90 08/31/20 23:58 98.5 F 74 20 146/78 93 08/31/20 16:28 98.0 F 94 H 18 158/71 95 08/31/20 12:35 77 183/97 08/31/20 11:36 98.8 F 77 20 183/97 95 08/31/20 10:00 96 - Physical Examination General: No Apparent Distress HEENT: Positive: PERRL Cardiac: Positive: Reg Rate and Rhythm Lungs: Positive: Decreased Breath Sounds Neuro: Positive: Grossly Intact Extremities: Absent: edema - Labs and Meds Cardiac Enzymes 08/31/20 Range/Units 13:37 CK-MB (CK-2) 4.0 (0.0-4.0) ng/mL <IBETH GUTHRIE - Last Filed: 09/03/20 09:18> Subjective Interval history: I SAW THIS PT & AGREE WITH THE Dx & Tx PLAN.
[2020-09-01] MEDS: amLODIPine 10 MG TAB PO SCH ×2 (10:49→17:10)
[2020-09-01] MEDS: ASPIRIN 325 MG TAB PO SCH ×2 (10:49→17:10)
[2020-09-01] MEDS: PRAZOSIN 1 MG CAP PO SCH (10:49)
[2020-09-01] MEDS: FUROSEMIDE 40 MG TAB PO SCH ×2 (10:49→17:10)
[2020-09-01 13:14] LABS: Hepatitis B Surface Antigen Non-Reactive (Negative); Hepatitis C Virus Antibody Non-Reactive (NonReactive)
[2020-09-01 14:30] VITALS: BP 180/90
== END 2020-09-01 18:09 | disposition home or self-care (01) ==
LOC: ED 00:50 → 3A 03:08
PROVIDERS: ADMIT Internal Medicine; ATTEND Internal Medicine
DX: J96.01 Acute respiratory failure with hypoxia (principal); Z20.822 Contact with and (suspected) exposure to COVID-19; I13.2 Hypertensive heart and chronic kidney disease with heart failure and with stage 5 chronic kidney disease, or end stage renal disease; R07.89 Other chest pain; I50.9 Heart failure, unspecified; N18.6 End stage renal disease; D63.1 Anemia in chronic kidney disease; R77.8 Other specified abnormalities of plasma proteins; J44.1 Chronic obstructive pulmonary disease with (acute) exacerbation; E11.9 Type 2 diabetes mellitus without complications; R10.9 Unspecified abdominal pain; R42 Dizziness and giddiness; E66.9 Obesity, unspecified; E78.5 Hyperlipidemia, unspecified; G47.30 Sleep apnea, unspecified; Z98.890 Other specified postprocedural states; Z79.4 Long term (current) use of insulin; Z79.82 Long term (current) use of aspirin; Z99.2 Dependence on renal dialysis; Z79.899 Other long term (current) drug therapy
CPT/HCPCS: 36415; 70450; 71045; 74176; 78580; 80053; 80061; 80074; 81001; 82140; 82550; 82553; 82728; 82962; 83615; 83735; 83880; 84145; 84484; 85025; 85379; 85610; 86140; 87040; 87641; 93005; 96365; 96366; 96367; 96375; 97165; 99285; A9540; G0378; J0360; J0456; J0696; J1100; J1940; J2270; J2405; U0003; J1815